=== PATIENT | female | born 2000 | race Caucasian/White ===

== ENCOUNTER 2025-04-19 11:51 | Emergency (ER) | payer SELFPAY ==
--- OUTSIDE RECORDS SUMMARY | 2025-04-08 14:00 | XMS_ITS | Encounter Summary ---
Author Organization Health Address [address] [address] Phone Care Team Providers Care Cage Supervisor Name Role Phone Shar Dubois DO Primary Care Provider [phone] Reason for Referral * Consultation (Routine) - Pending Review Specialty Diagnoses / Procedures Referred By Abril t Referred To Contact Obstetrics and Gynecology Diagnoses Endometriosis of fallopian tube Svetlana Kilgore MD [address] [place] [address] Phone: tel: fax: Ashley Kaur MD [address] [facility] [address] [place] [address] Phone: tel: fax: Referral ID Status Reason Start Date Expiration Date Visits Requested Visits Authorized [id number] Pending Review Specialty Services Required 04/08/2025 04/08/2026 1 1 Reason for Visit * Reason Comments Follow-up 1 month f/u EEG. ref errals Encounter Details Date Type Department Care Team (Late st Contact Info) Description 04/08/2025 1:00 PM CDT Office Visit [facility] [place] [address] [place] [address] Shar Dubois DO [address] [place] [id number] Passive suicidal ideations (Primary Dx); Endometriosis of fallopian tube; Witnessed seizure-like activity (CMS-HCC); Laceration of scalp without foreign body, subsequent encounter Social History Tobacco Use Types Packs/Day Years Used Date Smoking Tobacco: Never Passive Smoke Exposure: Never Smokeless Tobacco: Never Tobacco Cessation:Counseling Given: Not Answered Alcohol Use Standard Drinks/Week Comments Never 0 (1 standard drink = 0.6 oz pur e alcohol) B1300 Health Literacy Answer Date Recor ded How often do you need to hav e someone help you when you read instructions, pamphlets, or other written material from your doctor or pharmacy? Never 03/12/2025 [facility] Utilities Answer Date Recorded In the past 12 months has e [employer], gas, oil, or water [address] threatened to shut off services in your home? No 03/13/2025 Humiliation, Afraid, Rape, and Kick questionnair e Answer Date Recorded Within the last year, have y ou been afraid of your partner or ex-partner? No 03/13/2025 Emotionally Abused Not on file 03/13/2025 Within the last year, have y ou been kicked, hit, slapped, or otherwise physically hurt by your partner or ex-partner? No 03/13/2025 Sexually Abused Not on file 03/13/2025 Social Connection and Isolat ion Panel [NHANES] Answer Date Recorded In a typical week, how many times do you talk on the phone with family, friends, or neighbors? More than three times a week 03/12/2025 How often do you get togethe r with friends or relatives? Once a week 03/12/2025 How often do you attend chur ch or catholic services? More than 4 times per year 03/12/2025 Do you belong to any clubs o r organizations such as faith groups, unions, fraternal or athletic groups, or school groups? Yes 03/12/2025 How often do you attend meet ings of the clubs or organizations you belong to? More than 4 times per year 03/12/2025 Are you , , di vorced, , never , or living with a partner? Never 03/12/2025 AUDIT-C Answer Date Recorded Q1: How often do you have a drink containing alc ohol? Monthly or less 03/13/2025 Q2: How many drinks containi ng alcohol do you have on a typical day when you are drinking? 1 or 2 03/13/2025 Q3: How often do you have si x or more drinks on one occasion? Never 03/13/2025 Overall Financial Resource Strain (CARDIA) Answe r Date Recorded How hard is it for you to pa y for the very basics like food, housing, medical care, and heating? Somewhat hard 03/13/2025 PHQ-2 Answer Date Recorded PHQ-2 Score 6 03/13/2025 [facility] - Occupational Stress Questionnaire Answer Date Recorded Do you feel stress - tense, restless, nervous, or anxious, or unable to sleep at night because your mind is troubled all the time - these days? Very much 03/12/2025 Exercise Vital Sign Answer Date Recorde d On average, how many days pe r week do you engage in moderate to strenuous exercise (like a brisk walk)? 3 days 03/13/2025 On average, how many minutes do you engage in exercise at this level? 60 min 03/13/2025 Hunger Vital Sign Answer Date Recorded Within the past 12 months, y ou worried that your food would run out before you got the money to buy more. Never true 03/13/20 25 Within the past 12 months, t he food you bought just didn't last and you didn't have money to get more. Never true 03/13/2025 PRAPARE - Transportation Answer Date Re corded In the past 12 months, has l ack of transportation kept you from medical appointments or from getting medications? No 02/20 In the past 12 months, has l ack of transportation kept you from meetings, work, or from getting things needed for daily living? No 03/13/2025 PHQ-9 Answer Date Recorded Patient Health Questionnaire-9 Score 22 03/13/2025 Housing Stability Vital Sign Answer Fei e Recorded In the last 12 months, was t here a time when you were not able to pay the mortgage or rent on time? No 03/13/2025 In the past 12 months, how m any times have you moved where you were living? 1 03/13/2025 At any time in the past 12 m [facility], were you homeless or living in a snf (including now)? No 03/13/2025 Comments Unknown Sex and Gender Information Value Date Recorded Sex Assigned at Not on file Legal Sex Female 3:13 PM CDT Gender Identity Not on file Sexual Orientation Not on file documented as of this encounter Last Filed Vital Signs Vital Sign Reading Time Taken Comments Blood Pressure 137/79 04/08/2025 1:06 PM CDT Pulse 78 04/08/2025 1:06 PM CDT Temperature 36.4 C (97.5 F) 04/08/2025 1:06 PM CDT Respiratory Rate 20 04/08/2025 1:06 PM CDT Oxygen Saturation 97% 04/08/2025 1:06 PM CDT Inhaled Oxygen Concentration - - Weight 138.1 kg (304 lb 6.4 oz) 04/08/2025 1:06 PM CDT Height 167.6 cm (5' 6 ) 04/08/2025 1:06 PM CDT Body Mass Index 49.13 04/08/2025 1:06 PM CDT documented in this encounter Progress Notes * Shar Dubois, - 04/08/2025 1:00 PM CDT [facility] [place] - Department of Family Medicine Patient: Abida Montiel Age: 24 y.o. Date: 2000 Subjective: Patient presents today for Follow-up (1 month f/u EEG. referrals) Monogram Technician or Additional Historian Used: Yes, describe: Patient's father was in the room and helpedprovide history. HPI: Patient is here to follow-up on the referrals placed at last visit. She also had two ER visits and one hospital admission for suicidal ideation. Injury to the Head - Went to the ER last night for SI. Patient banged her head against the wall during one of her outbursts. Laceration repaired in ER. Passive suicidal ideation resolved and is stable now. - Patient has a history of multiple concussions since 2019. - Patient could benefit from a concussion work-up before getting into work or other extracurricularactivities with [facility]. Admitted for SI - Has resolved and has an action plan to calm down when thoughts or feelings arise. - Patient sees a therapist regularly. She has a good support system with both of her parents. Referrals: EEG - Done with [facility] at home 03/26 - 03/29 - Was told it would take 1-2 weeks for it to be read - Stressed the importance of having results in hand before neurologist appointment Neurology - Seeing neurologist in [facility] on 04/19/25 [place] - Approved for therapy at [facility], has not been contacted, number provided today. - Patient will call and schedule Marketing Communications Coordinator - Scheduled to see lab technician at the beginning of April Psychiatry - Currently sees psych with [facility] but would like to switch. - referred to Mickie and the phone was provided. Gynecology - Established with Dr. Kaur and is requesting a new referral today per insurance guidelines. Tobacco Hx: Tobacco Use: Low Risk (04/08/2025) Patient History Smoking Tobacco Use: Never Smokeless Tobacco Use: Never Passive Exposure: Never Counseling given: Not Answered Objective No results found for this visit on 04/08/25. Visit Vitals BP 137/79 Pulse 78 Temp 36.4 ??C (97.5 ??F) Resp 20 Ht 1.676 m (5' 6 ) Wt 138.1 kg (304 lb 6.4 oz) LMP 02/23/2025 (Approximate) SpO2 97% BMI 49.13 kg/m?? Smoking Status Never BSA 2.54 m?? Body mass index is 49.13 kg/m??. Physical Exam Constitutional: General: She is not in acute distress. Appearance: Normal appearance. She is obese. HENT: Head: Normocephalic and atraumatic. Nose: Nose normal. Mouth/Throat: Mouth: Mucous membranes are moist. Pharynx: Oropharynx is clear. Eyes: Extraocular Movements: Extraocular movements intact. Conjunctiva/sclera: Conjunctivae normal. Pupils: Pupils are equal, round, and reactive to light. Cardiovascular: Rate and Rhythm: Normal rate and regular rhythm. Pulses: Normal pulses. Heart sounds: Normal heart sounds. No murmur heard. Pulmonary: Effort: Pulmonary effort is normal. Breath sounds: Normal breath sounds. Musculoskeletal: General: Normal range of motion. Cervical back: Normal range of motion and neck supple. Skin: General: Skin is warm and dry. Neurological: General: No focal deficit present. Mental Status: She is alert and oriented to person, place, and time. Cranial Nerves: No cranial nerve deficit. Psychiatric: Mood and Affect: Mood normal. Behavior: Behavior normal. Thought Content: Thought content normal. Judgment: Judgment normal. Comments: Denies SI Current Medication List: Current Outpatient Medications Medication Instructions Abilify 30 mg, Daily haloperidol (HALDOL) 5 mg, Nightly lithium ER (LITHOBID) 300 mg, 3 times daily Epnoalfpg-Ycsjapiyh-Rcannfrqk (Myfembree) 40-1-0.5 MG tablet 1 tablet, Daily sertraline (ZOLOFT) 200 mg, Daily traZODone (DESYREL) 100 mg, Nightly Patient was seen with attending physician at time of service. Assessment and Plan: Diagnoses and all orders for this visit: Passive suicidal ideations - 2 Recent ER visits and one hospital admission - Denies SI or plan today - Sees psych with [facility] and private therapist. - Advised patient to follow action plan for future SI including cold therapy, breathing, grounding. Endometriosis of fallopian tube - Ambulatory referral to Obstetrics / Gynecology; Future - Necessary referral per patient for appointment in 9 months. Witnessed seizure-like activity ([facility]) - Still having episodes of hand and head shaking. Patient is aware and responsive during these episodes. - EEG performed, awaiting read. Neurology appointment on 04/19/25 in [facility]. Laceration of scalp without foreign body, subsequent encounter - Healing well. Stitches in place. Patient can come back to our office or the [facility] ER to have them removed. Orders Placed This Encounter Procedures Ambulatory referral to Obstetrics / Gynecology Shar Dubois DO 04/08/2025 Follow up with our clinic in: in 1 month Future Appointments: Future Appointments Date Time Provider Department Center 04/23/2025 9:40 AM Kyler Calero MD O[facility]PT [facility] 05/20/2025 9:00 AM Shar Dubois DO OUPT [facility] Any components documented by nursing staff or students were independently reviewed and verified by myself during visit today. * Svetlana Kilgore MD - 04/08/2025 1:00 PM CDT I have interviewed and examined this patient and personally reviewed all labs and studies. I discussed the patient's management with the resident(s) and reviewed their note. I agree with the documented findings and plan of care. Svetlana Kilgore MD documented in this encounter Plan of Treatment Upcoming Encounters Date Type Department Care Team (Late st Contact Info) Description 05/20/2025 9:00 AM CDT Office Visit [facility] [place] [address] [place] [id number] Shar Dubois DO [address] [place] [phone] Scheduled Referrals Name Type Priority Associated Diagnoses Order Schedule Ambulatory referral to Obstetrics / Gynecology Outpatient Referral Routine Endometriosis of fallopian tube Expected: 04/08/2025 (Approximate), Expires: 10/09/2025 documented as of this encounter Visit Diagnoses Diagnosis Passive suicidal ideations- Primary Endometriosis of fallopian tube Witnessed seizure-like activity ([facility]) Laceration of scalp without foreign body, subsequent encounter documented in this encounter Additional Health Concerns Assessment Noted Time PHQ-9 Depression Total Score: 22 025 1:00 PM CDT PHQ-2 Depression Total Score: 6 03/13/20 25 10:23 AM CDT documented as of this encounter Care Teams Cage Supervisor Relationship Specialty Start Date End Date Shar Dubois DO [address] [place] [phone] PCP - General Family Medicine 02/14/25 documented as of this encounter
[2025-04-19 11:49] VITALS: BP 107/66; PULSE 92; O2SAT 100
[2025-04-19 11:51] VITALS: BP 133/71; PULSE 77; RESP 16; TEMP 36.4; O2SAT 98; BMI 49.2
[2025-04-19 12:27] LABS: MANUAL DIFF FLAG NO
[2025-04-19 12:30] LABS: Appearance Urine Clear; Glucose Urine UA Negative (Negative); PH 7.0 (5.0-9.0); Specific Gravity - Urine <= 1.005 (1.005-1.025); UMIC TRIGGER UACC YES
[2025-04-19 12:33] LABS: Hematocrit 35.4 % (37.0-47.0); Hemoglobin 11.9 g/dl (12.0-16.0); Imm Gran Abs Auto 0.02 X10*3/uL (0.00-0.03); Imm Gran Pct Auto 0.4 % (0.0-0.4); Lymphocytes Absolute Auto 1.1 X10*3/uL (1.2-4.9); Mean Corpuscular HGB Conc 33.6 g/dl (31.0-35.0); Mean Corpuscular Hemoglobin 27.3 pg (27.0-33.0); Mean Corpuscular Volume 81.2 fL (80.0-98.0); NRBC Abs Auto 0.000 X10*3/uL (0.0-0.012); NRBC Pct Auto 0.0 /100WBC (0.0-0.2); Platelet Count 233 X10*3/uL (160-400); Red Blood Count 4.36 X10*6/uL (4.20-5.50); White Blood Count 4.8 X10*3/uL (4.8-10.8)
--- NOTE | 2025-04-19 12:40 | ED.FEMALEGU ---
HPI - Female Genitourinary General Chief complaint: Urogenital-Female Stated complaint: URINE RETENTION PER EMS,SECTION 21 PER EMS Source: patient, family, EMS and old records reviewed Mode of arrival: EMS Limitations: no limitations History of Present Illness ED Provider: ABIOLA HPI Narrative: 25 yo female with PMH of bipolar, neurogenic bladder has stimulator (stimulator unfortunately is in [place] she was here visiting) due to TBI who occasionally self caths at home she states she got to [facility] yesterday and has not urinated in 16 hours. They stated they couldn't manage it there and did not have female cath. She has pressure and needs to pee but cannot. She states she would normally cath at home in this situation. She has no fevers, n/v. MD elicited complaint: other (urinary retention) Onset (ago): hour(s) (16) Location of symptoms: suprapubic Severity: mild Quality of pain: dull Consistency: constant Vaginal discharge: none Vaginal bleeding: none Exacerbating factors: none Relieving factors: none Associated symptoms: denies other symptoms Treatment prior to arrival: none Related Data Allergies Allergy/AdvReac Type Severity Reaction Status Date / Time buspirone (From BuSpar) Allergy Unknown Verified 04/19/25 11:54 fish derived (fish) Allergy Unknown Verified 04/19/25 11:54 sulfamethoxazole (From Allergy Unknown Verified 04/19/25 11:54 Bactrim) trimethoprim (From Bactrim) Allergy Unknown Verified 04/19/25 11:54 Review of Systems Review of Systems: Constitutional : No Fever, No Chills, No Fatigue ENT/Mouth : No sore throat, No Rhinorrhea Eyes: No Eye Pain, No Swelling, No Redness Cardiovascular : No Chest Pain, No SOB, No Dyspnea on Exertion Respiratory : No Cough, No Sputum Gastrointestinal : No Nausea, No Vomiting, No Diarrhea, No abdominal Pain Genitourinary : No Dysuria, No Urinary Frequency, No Hematuria, pos retention Musculoskeletal : No joint pain, No Myalgias, No Joint Swelling Skin : No Skin Lesions, No rash Neuro : No Weakness, No Numbness, No Dizziness, no Headache All other systems reviewed and are negative PMFSH Past Medical History Attestation statement: The following information was validated with the patient. Source: old records reviewed Medical History (Updated 04/19/25 @ 12:53 by Nia Simms DO) Neurogenic bladder TBI (traumatic brain injury) Bipolar 1 disorder Social History Social History (Updated 04/19/25 @ 12:40 by Nia Simms DO) Patient Tobacco Use Status: Never used Tobacco Smoked in Last 30 Days: No Use of substances other than those prescribed or required for medical reasons: No Advance Directives: No Advance Directives Information Provided: Yes Physical Exam Vital Signs: Vital Signs: Last Vital Signs Temp 97.9 F 04/19/25 14:11 Pulse 70 04/19/25 14:11 Resp 18 04/19/25 14:11 BP 134/68 04/19/25 14:11 Pulse Ox 99 04/19/25 14:11 O2 Del Method Room Air 04/19/25 14:11 BMI result Body Mass Index 49.2 Appearance: Alert. Oriented X3. No acute distress. Eyes: Pupils equal, round and reactive to light. ENT: Pharynx normal open wound on forehead that has internal healing no signs of infection but stitches are old and only on one side of wound they were never approximated please see picture below Neck: Normal inspection. Neck supple. CVS: Normal heart rate and rhythm. Pulses normal. Respiratory: No respiratory distress. Breath sounds normal. Abdomen: Soft and mild suprapubic ttp Skin: Skin warm and dry. Normal skin color. Normal skin turgor. Extremities: No lower extremity edema. No calf ttp Neuro: Oriented X 3. No motor deficit. No sensory deficit. Course Course Course Narrative: given PO ativan waiting for ride home became upset and banged head on the wall - no LOC and no falls, tech right at bedside. Reevaluation(s) Reevaluation #1: IM medications given zyprexa for agitation she responded well Medications Administered Discontinued Medications Generic Name Dose Route Start Last Admin Trade Name Freq PRN Reason Stop Dose Admin Lorazepam 2 mg 04/19/25 15:02 04/19/25 15:13 Lorazepam 1 Mg Tablet PO 04/19/25 15:03 2 mg ONCE ONE Administration Medical Decision Making Medical Decision Making MDM Narrative: 25 yo female with PMH of bipolar, neurogenic bladder has stimulator (stimulator unfortunately is in [place] she was here visiting) due to TBI at this time will obtain labs and UA - straight cath here after bladder scan I did remove her poor sutures - I used glue to tack down steri strips x 2 so I could approximate the wounds Differential Diagnosis Differential Diagnoses: The differential diagnosis associated with the presentation includes known urinary retention Admission/Observation Consideration of admission/observation: Escalation of care including admission/observation considered able to cath no issues full amount removed from bladder scan labs and UA reassuring Lab Data MDM Lab Attestation statement: I reviewed the patient's lab results. 04/19/25 12:23 04/19/25 12:23 Labs: Lab Results 04/19/25 Range/Units 12:23 WBC 4.8 (4.8-10.8) X10*3/uL RBC 4.36 (4.20-5.50) X10*6/uL Hgb 11.9 L (12.0-16.0) g/dl Hct 35.4 L (37.0-47.0) % MCV 81.2 (80.0-98.0) fL MCH 27.3 (27.0-33.0) pg MCHC 33.6 (31.0-35.0) g/dl RDW 14.3 (11.0-16.0) % Plt Count 233 (160-400) X10*3/uL MPV 10.1 (9.4-12.3) fL Immature Gran % (Auto) 0.4 (0.0-0.4) % Neut % (Auto) 66.6 (45-73) % Lymph % (Auto) 22.1 (20-40) % Bucks % (Auto) 8.4 (2-11) % Eos % (Auto) 2.1 (0-4) % Baso % (Auto) 0.4 (0-2) % Lymph # (Auto) 1.1 L (1.2-4.9) X10*3/uL Bucks # (Auto) 0.4 (0.1-1.2) X10*3/uL Eos # (Auto) 0.1 (0.0-0.4) X10*3/uL Baso # (Auto) 0.0 (0.0-0.2) X10*3/uL Abs Immat Gran (auto) 0.02 (0.00-0.03) X10*3/uL Absolute Neuts (auto) 3.2 (2.0-8.3) x10*3/uL Absolute Nucleated RBC 0.000 (0.0-0.012) X10*3/uL Nucleated RBC % (auto) 0.0 (0.0-0.2) /100WBC Sodium 143 (135-145) mmol/L Potassium 4.0 (3.3-5.1) mmol/L Chloride 107 (96-108) mmol/L Carbon Dioxide 28 (22-29) mmol/L Anion Gap 12 (12-20) BUN 9 (9-16) mg/dL Creatinine 0.84 (0.5-1.4) mg/dL Estim Creat Clear Calc 149.3 Estimated GFR > 60 Random Glucose 87 (60-115) mg/dL Calcium 9.2 (8.4-10.2) mg/dL Urine Color Yellow Urine Appearance Clear Urine pH 7.0 (5.0-9.0) Ur Specific [place] <= 1.005 (1.005-1.025) Urine Protein Negative (Neg-Trace) mg/dL Urine Glucose (UA) Negative (Negative) mg/dL Urine Ketones Negative (Negative) mg/dL Urine Blood Negative (Negative) Urine Nitrite Negative (Negative) Ur Leukocyte Esterase Trace H (Negative) Urine RBC 0-2 (0-2) /HPF Urine WBC 0-5 (0-5) /HPF Ur Squamous Epith Cells 0-2 (0-2) /HPF Urine Bacteria Trace (None Seen) Hyaline Casts 0-2 (0-2) /LPF Independent Historian Clinical information obtained from an independent historian. History obtained from or confirmed by: EMS External Record Review External record reviewed: Outpatient record Discharge Plan Discharge Clinical Impression: Dehiscence of wound, Acute on chronic urinary retention Patient Disposition: Home, Self-Care Instructions: Chronic Urinary Retention in Women (ED), Acute Wounds (ED) Additional Instructions: avoid getting steri strips wet return for redness, yellow drainage, fevers they will fall off in 5 to 7 days easily cathed with size 14 fr straight cath removed all urine - bladder scan in 600s no UTI and normal kidney function please continue to monitor for retention and catheterize every 6 to 8 hours as needed. Print Language: Angolan
[2025-04-19 12:41] LABS: Anion Gap 12 (12-20); Blood Urea Nitrogen 9 mg/dL (9-16); Calcium 9.2 mg/dL (8.4-10.2); Carbon Dioxide 28 mmol/L (22-29); Chloride 107 mmol/L (96-108); Creatinine Clr Calc Pharmacy 149.3; Estimated Glomerular Filt Rate > 60; Potassium 4.0 mmol/L (3.3-5.1); Sodium 143 mmol/L (135-145)
--- NOTE | 2025-04-19 13:00 | PC.NURSE ---
phone call with Grace WERNER. Is aware of plan for d/c back to [facility] with 14 Fr straight caths.
--- OUTSIDE RECORDS SUMMARY | 2025-04-19 13:43 | XMS_ITS | Encounter Summary ---
[facility] Organization [facility] Address [address] [place] [address] Phone Care Team Providers Care Gauge And Weigh Machine Operator Name Role Phone Prabhjot Evangelista MD Primary Care Provider [phone] Encounter Details Date Type Department Care Team (Latest Contact Info) Description 09/10/2022 Transcribe Orders [facility] Non-Invasive Cardiology [address] [place] [address] Griselda Segal DO [address] [place] [address] Chest pain, unspecified type (Primary Dx) Social History Tobacco Use Types Packs/Day Years Used Date Smoking Tobacco: Never Assessed Comments Unknown Sex and Gender Information Value Date Recorded Sex Assigned at Not on file Legal Sex Female 10:38 AM 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 Gender Identity Not on file Sexual Orientation Not on file documented as of this encounter Plan of Treatment Not on file documented as of this encounter Visit Diagnoses Diagnosis Chest pain, unspecified type- Primary documented in this encounter Additional Health Concerns Infection Onset Date Last Indicated Resolved Time COVID-19 (suspected) 08/09/2024 08/09/2024 024 8:27 PM 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 documented as of this encounter Care Teams Gauge And Weigh Machine Operator Relationship Specialty Start Date End Date Prabhjot Evangelista MD [address] [place] [address] PCP - General Family Medicine 06/04/24 documented as of this encounter
--- OUTSIDE RECORDS SUMMARY | 2025-04-19 13:43 | XMS_ITS | Clinical Summary ---
Author Organization [facility] Address [address] [place] [address] Phone Care Team Providers Care Culinary Internship Name Role Phone Unavailable Primary Care Provider Unavailabl e Allergies Active Allergy Reactions Criticality Noted Date Comments Buspirone Hives High 12/22/2022 Sulfamethoxazole-Trimethoprim Hives,Swelling High Medications methylPREDNISol one (MEDROL DOSPACK) 4 mg Tablets, Dose Pack Take as instructed 21 Tablet 3 Active ARIPiprazole (ABILIFY) 5 mg tablet Take 5 mg by mouth daily. Active hydrOXYchloroQU INE (PLAQUENIL) 200 mg tablet Take 200 mg by mouth daily. Active traZODone (DESYREL) 50 mg tablet Take 50 mg by mouth daily at bedtime. Active diphenhydrAMINE (BENADRYL) 25 mg tablet Take 25 mg by mouth every 6 hours as needed for Allergies. Active hydrOXYzine HCL (ATARAX) 50 mg tablet Take 50 mg by mouth 3 times daily as needed for Itching. Active predniSONE (DELTASONE) 10 mg tablet Take 10 mg by mouth daily. Active sertraline (ZOLOFT) 100 mg tablet Take 200 mg by mouth daily. Active metFORMIN (GLUCOPHAGE) 500 mg tablet Take 500 mg by mouth 2 times daily with meals. Active Social History Tobacco Use Types Packs/Day Years Used Date Smoking Tobacco: Never Tobacco Cessation:Counseling Given: Not Answered Feeling Safe Answer Date Recorded Are you in a relationship wi th someone who hurts you emotionally and/or physically? No 10/01/2023 Comments Unknown Sex and Gender Information Value Date Recorded Sex Assigned at Not on file Legal Sex Female 10:40 PM CDT Gender Identity Not on file Sexual Orientation Not on file Last Filed Vital Signs Vital Sign Reading Time Taken Comments Blood Pressure 94/73 10/01/2023 6:15 PM DRESSAGE JUDGE Pulse 115 10/01/2023 6:15 PM DRESSAGE JUDGE Temperature 36.9 C (98.4 F) 10/01/2023 4:30 PM DRESSAGE JUDGE Respiratory Rate 17 10/01/2023 6:15 PM DRESSAGE JUDGE Oxygen Saturation 96% 10/01/2023 6:15 PM DRESSAGE JUDGE Inhaled Oxygen Concentration - - Weight 106.6 kg (235 lb) 10/01/2023 4:08 PM DRESSAGE JUDGE Height 165.1 cm (5' 5 ) 10/01/2023 4:08 PM DRESSAGE JUDGE Body Mass Index 39.11 10/01/2023 4:08 PM DRESSAGE JUDGE Plan of Treatment Health Maintenance Due Date Last Done Comments CHLAMYDIA SCREENING (ANNUAL) 11-24 YEARS 2013 HPV VACCINES (1 - 3-dose series) 2017 CERVICAL CANCER SCREENING 2023 HPV/Cotest (21-29) 2023 PAP SMEAR 2023 INFLUENZA VACCINE (#1) 2025 DTAP/TDAP/TD VACCINES (8 - T d or Tdap) 04/06/2032 04/06/2022, 04/24/2013, 05/02/2006, Additional history exists HEPATITIS B VACCINES Completed 05/13/2022, 04/12/2022, 04/17/2003, Additional history exists Insurance [employer] Member Subscriber Plan / Payer (Ef fective 2022-Present) Name:Abida Selby Relation to Subscriber:Child Name:RADHA SELBY Date of :1975 (Home) Address: [address] [place] [address] Payer ID:Not on file Type:HMO Address: [address] ONLY RX F[employer]IAS PLANS (INTERNAL) [facility]
--- OUTSIDE RECORDS SUMMARY | 2025-04-19 13:43 | XMS_ITS | Clinical Summary ---
Author Organization Health Address [address] [address] Phone Care Team Providers Care Comprehensive Advisor Name Role Phone Shar Dubois DO Primary Care Provider [phone] Allergies Active Allergy Reactions Criticality Noted Date Comments Buspirone Hives,Itching,Rash,S w elling High 12/22/2022 Other Reaction(s): hives, swelling Paliperidone Anaphylaxis High 01/30/2025 Sulfamethoxazole-Trimet hoprim Anaphylaxis,Hives,Itc [place],Rash,Swelling High 06/26/2022 Medications Abilify 30 MG tablet Take 30 mg by mouth in the morning. Active haloperidol (Haldol) 5 MG tablet Take 5 mg by mouth at bed time. Active lithium ER (Lithobid) 300 MG 12 hr tablet Take 300 mg by mouth 3 times a day. Do not crush, chew, or split. Active sertraline (Zoloft) 100 MG tablet Take 200 mg by mouth in the morning. Active traZODone (Desyrel) 100 MG tablet Take 100 mg by mouth at bedtime. Active Relugolix-Estrad iol-Norethind (Myfembree) 40-1-0.5 MG tablet Take 1 tablet by mouth in the morning. Active Active Problems Problem Noted Date Diagnosed Date Autism 03/13/2025 OCD (obsessive compulsive disorder) 03/13/2025 History of traumatic brain injury 03/13/2025 At risk for intentional self-harm 03/13/2025 History of suicide attempt 03/13/2025 Borderline personality disorder 03/13/2025 Persistent depressive disorder 03/13/2025 Endometriosis of fallopian tube 03/13/2025 POTS (postural orthostatic tachycardia syndrome) 03/13/2025 PCOS (polycystic ovarian syndrome) 03/13/2025 History of thyroid nodule 03/13/2025 Bipolar affective disorder, depressed in partial remission 03/13/2025 Witnessed seizure-like activity 03/13/2025 Resolved Problems Problem Noted Date Diagnosed Date Resolved Date Bipolar 2 disorder 03/13/2025 Encounters Date Type Department Care Team Description 04/15/2025 Telephone [address] [address] Eleonora Holcomb LPN 04/12/2025 Results Follow-Up [address] [phone] Shar Dubois DO EEG awake or drowsy routine 04/12/2025 Orders Only [facility] [address] [phone] Altagracia Mullins, History of traumatic brain injury; Witnessed seizure-like activity (CMS-HCC) 04/11/2025 Telephone [address] [phone] Shar Dubois DO 04/08/2025 1:00 PM CDT Office Visit [facility] [address] [address] Shar Dubois DO Passive suicidal ideations (Primary Dx); Endometriosis of fallopian tube; Witnessed seizure-like activity (CMS-HCC); Laceration of scalp without foreign body, subsequent encounter 04/08/2025 Travel 04/07/2025 Travel 04/01/2025 Abstract [facility] [address] [address] Shar Dubois DO 03/13/2025 10:00 AM CDT Office Visit [facility] [address] [phone] Shar Dubois, Bipolar affective disorder, depressed in partial remission (CMS-HCC) (Primary Dx); History of traumatic brain injury; Borderline personality disorder (CMS-HCC); Autism; Witnessed seizure-like activity (CMS-HCC); Obesity, Class III, BMI 40-49.9 (morbid obesity) (CMS-HCC); History of thyroid nodule; POTS (postural orthostatic tachycardia syndrome); PCOS (polycystic ovarian syndrome) 03/13/[address] [facility] [address] [phone] Maria Jensen, SHAISTA Encounter for screening examination for other mental health and behavioral disorders (Primary Dx); Encounter for screening involving social determinants of health (SDoH); Positive depression screening; Encounter for social work intervention 03/13/2025 Travel 03/12/2025 Travel from Last 3 Months Social History Tobacco Use Types Packs/Day Years [...] from your doctor or pharmacy? Never 03/12/2025 [facility] Utilities Answer Date Recorded In the past 12 months has [facility] [employer], or water [employer] threatened to shut off services in your [...] often do you attend chur ch or shinto services? More than 4 times per year 03/12/2025 Do you belong to any clubs o r organizations such as advent groups, unions, fraternal or athletic groups, or [...] Answer Date Recorded PHQ-2 Score 6 03/13/2025 [facility] - Occupational Stress Questionnaire Answer Date [...] any time in the past 12 m ont, were you homeless or living in a retirement (including now)? No 03/13/2025 Comments Unknown Sex [...] Mass Index 49.13 04/08/2025 1:06 PM CDT Plan of Treatment Upcoming Encounters Date Type Department Care Team (Late st Contact Info) Description 05/20/2025 9:00 AM CDT Office Visit [facility] [address] [phone] Shar Dubois, DO [address] [place] [address] Health Maintenance Due Date Last Done Comments HIV Screening 2002 Lipid Panel 2002 HPV Vaccines (1 - 3-dose series) 2017 Meningococcal B Vaccine (1 of 2 - Standard) 2018 Hepatitis C Screening 2020 Pap Smear 2023 COVID-19 Vaccine (3 - 2023- season) 2024 05/01/2022, 04/03/2022 Influenza Vaccine (#1) 2025 , 11/23/2023, 04/06/2022 Yearly Depression Screening 03/13/2026 03/13/2025 TSH Level 03/21/2026 03/21/2025, 12/21, 12/22/2024, Additional history exists DTaP/Tdap/Td Vaccines (5 - Td or Tdap) 04/26/2034 04/26/2024, 12/02/2023, 04/06/2022, Additional history exists Zoster Vaccines (1 of 2) 2052 RSV Vaccine: or Age 60+ Years (1 - 1-dose 75+ series) 2077 Pneumococcal Vaccine: Pediatrics (0 to 5 Years) and At-Risk Patients (6 to 64 Years) Aged Out 04/15/2004, 01/09/2003, 2002, Additional history exists No longer eligible based on patient's age to complete this topic Hepatitis A Vaccines Completed 04/12/2005, 04/15/20 04 MMR Vaccines Completed 05/02/2006, 04/17/2003 Varicella Vaccines Completed 05/08/2007, 04/17/2003 Hepatitis B Vaccines Completed 05/13/2022, 04/12/2022, 04/17/2003, Additional history exists Chlamydia Screening Discontinued HIB Vaccines Aged Out No longer eligi ble based on patient's age to complete this topic IPV Vaccines Aged Out No longer eligi ble based on patient's age to complete this topic Meningococcal Vaccine Aged Out No blas ely eligible based on patient's age to complete this topic RSV Vaccine Pediatric Aged Out No blas ely eligible based on patient's age to complete this topic Rotavirus Vaccines Aged Out No longer eligible based on patient's age to complete this topic Procedures Procedure Name Priority Date/Time Associated Diagnosis Comments EEG AWAKE OR DROWSY ROUTINE Routine 03/26/2025 History of traumatic brain injury Witnessed seizure-like activity ([facility]) from Last 3 Months Results * EEG awake or drowsy routine (03/26/2025) Anatomical Region Laterality Modality Other Altagracia Mullins DO NEUROLOGY ORDERABLES Fin al Result from Last 3 Months Insurance [facility] [place] [address] [employer]ALTH [employer] COMPLETE HEALTH [facility] COMPLETE HEALTH Care Teams Comprehensive Advisor Relationship Specialty Start Date End Date Shar Dubois DO [address] [place] [address] PCP - General Family Medicine 02/14/25
--- OUTSIDE RECORDS SUMMARY | 2025-04-19 13:43 | XMS_ITS | Encounter Summary ---
Author Organization [facility] Address [address] [place] [address] Phone Care Team Providers Care Field Crop Harvest Worker Name Role Phone Prabhjot Evangelista MD Primary Care Provider [phone] Reason for Referral * Consultation (Urgent) - Closed Specialty Diagnoses / Procedures Referred By Contac t Referred To Contact Gastroenterology Diagnoses LUQ abdominal pain Prabhjot Evangelista MD [address] [address] Phone: tel: fax: Chel Desai PA [address] [facility] [address] [place] [address] Phone: tel: fax: Referral ID Status Reason Start Date Expiration Date Visits Re quested Visits Authorized [id number] Closed 12/28/2024 12/29/2025 1 1 Encounter Details Date Type Department Care Team (Latest Contact Info) Description 12/28/2024 Transcribe Orders [facility] [address] [place] [address] Prabhjot Evangelista MD [address] [place] [address] LUQ abdominal pain (Primary Dx) Social History Tobacco Use Types Packs/Day Years Used Date Smoking Tobacco: Never Smokeless Tobacco: Never Alcohol Use Standard Drinks/Week Comments Never 0 (1 standard drink = 0.6 oz pur e alcohol) Utilities Answer Date Recorded In the past 12 months has th e electric, gas, oil, or water company threatened to shut off services in your home? No 08/16/2024 Overall Financial Resource Strain (CARDIA) Answe r Date Recorded How hard is it for you to pa y for the very basics like food, housing, medical care, and heating? Not very hard 08/16/2024 Hunger Vital Sign Answer Date Recorded Within the past 12 months, y ou worried that your food would run out before you got the money to buy more. Never true 08/16/20 24 Within the past 12 months, t he food you bought just didn't last and you didn't have money to get more. Never true 08/16/2024 PRAPARE - Transportation Answer Date Re corded In the past 12 months, has l ack of transportation kept you from medical appointments or from getting medications? No 07/23 In the past 12 months, has l ack of transportation kept you from meetings, work, or from getting things needed for daily living? No 08/16/2024 Housing Stability Vital Sign Answer Fei e Recorded In the last 12 months, was t here a time when you were not able to pay the mortgage or rent on time? No 08/16/2024 In the past 12 months, how m any times have you moved where you were living? 0 08/16/2024 At any time in the past 12 m [facility], were you homeless or living in a senior care (including now)? No 08/16/2024 Interpersonal Safety Answer Date Record ed Safe in Home Yes 12/29/2024 Are you in immediate danger? Not on file 05/2025 Is your partner at the health facility now? Not on file 12/29/2024 Do you want to (or have to) go home with your pa rtner? Not on file 12/29/2024 Do you have someplace safe to go? Not on file 12/29/2024 Have there been threats or d irect abuse of you or your children? No 12/29/2024 When did the abuse occur? Not on file 2024 Do you feel you are still at risk? Not on file 12/29/2024 Are you in contact with your ex-partner or do you share children or custody? Not on file 12/29/2024 Are you afraid your life may be in danger? Not o n file 12/29/2024 Has the violence gotten wors e or is it getting scarier? More often? Not on file 12/29/2024 Has anyone ever choked or tried to choke you? No 12/29/2024 Do you feel you are still at risk for choking? N ot on file 12/29/2024 Are you in contact with ex-p artner who choked or attempted to choke you? or do you share children or custody? Not on file 05/2025 Are you afraid your life may be in danger due to choking? Not on file 12/29/2024 Has the choking gotten worse or is it getting scarier? More often? Not on file 12/29/2024 Has your partner used weapons, alcohol or drugs? Not on file 12/29/2024 Has your partner ever held y ou or your children against your will? Not on file 12/29/2024 Does your partner ever watch you closely, follow you or stalk you? Not on file 12/29/2024 Has your partner ever threat ened to kill you, him/herself or your children? Not on file 12/29/2024 When did the choking or choking attempt occur? N ot on file 12/29/2024 Do you feel you are still at risk for choking? 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 PROGRAMMER Gender Identity Not on file Sexual Orientation Not on file documented as of this encounter Plan of Treatment Scheduled Referrals Name Type Priority Associated Diagnoses Order Schedule Ambulatory referral to Gastroenterology Outpatient Referral Routine LUQ abdominal pain 1 Occurrences starting 12/28/2024 until 06/30/2026 documented as of this encounter Visit Diagnoses Diagnosis LUQ abdominal pain- Primary documented in this encounter Care Teams Field Crop Harvest Worker Relationship Specialty Start Date End Date Prabhjot Evangelista MD [address] [place] [address] PCP - General Family Medicine 06/04/24 documented as of this encounter
--- OUTSIDE RECORDS SUMMARY | 2025-04-19 13:43 | XMS_ITS | Clinical Summary ---
Author Organization [facility] Address [address] [place] [address] Care Team Providers Care Bricklayer'S Assistant Name Role Phone Provider, No Pcp Unavailable Unavailable Prabhjot Evangelista Primary Care Provider [phone] Allergies Active Allergy Reactions Criticality Noted Date Comments Sulfamethoxazole-Trimet hoprim 10/06/2024 Sulfamethoxazole-Trimet hoprim Anaphylaxis High 01/22/2025 Buspirone Hives,Swelling High 12/22/2022 Other Reaction(s): hives, swelling Fish Oil Hives 01/30/2025 Fish-Derived Products 10/06/2024 Metformin Anaphylaxis,Hives,Ra s h High 01/25/2023 Paliperidone Anaphylaxis High 01/30/2025 Medications sertraline (Zoloft) 100 MG tablet Take 1 tablet (100 mg) by mouth daily. Active ARIPiprazole (Abilify) 10 MG tablet Take 1 tablet (10 mg) by mouth daily. Active Active Problems No known active problems Encounters Date Type Department Care Team Description 01/30/2025 1:15 AM CDT - 01/30/2025 2:11 AM CDT Emergency [facility] - Emergency Department [address] [place] [address] Prashant Santo MD Allergic reaction (Primary Dx) Discharge Disposition: Home or Self-Care 01/30/2025 Travel 01/28/2025 6:05 PM CDT - 01/28/2025 6:32 PM CDT [place] [facility] [place] [address] [place] [address] Abdullahi Alvarado DO Urticaria (Primary Dx); Pruritus Discharge Disposition: Home or Self-Care 01/28/2025 5:52 AM CDT - 01/28/2025 6:35 AM CDT Emergency [facility] - Emergency Department [address] [place] [address] Jarek Ramirez DO Urticaria (Primary Dx); Pruritus Discharge Disposition: Home or Self-Care 01/28/2025 Travel 01/22/2025 6:59 PM CDT - 01/22/2025 11:31 PM CDT Emergency [facility] - Emergency Department [address] [place] [address] Elian Waller DO Closed head injury, initial encounter (Primary Dx) Discharge Disposition: Psychiatric Hospital or Psychiatric Unit from Last 3 Months Social History Tobacco Use Types Packs/Day Years Used Date Smoking Tobacco: Never Passive Smoke Exposure: Never Smokeless Tobacco: Never Tobacco Cessation:Counseling Given: Not Answered Alcohol Use Standard Drinks/Week Comments Defer 0 (1 standard drink = 0.6 oz pur e alcohol) Comments No Sex and Gender Information Value Date Recorded Sex Assigned at Not on file Legal Sex Female 6:43 PM [employer] Gender Identity Not on file Sexual Orientation Not on file Last Filed Vital Signs Vital Sign Reading Time Taken Comments Blood Pressure 124/74 01/30/2025 2:00 AM CDT Pulse 120 01/30/2025 2:00 AM CDT Temperature 36.9 C (98.4 F) 01/30/2025 1:19 AM CDT Respiratory Rate 18 01/30/2025 2:00 AM CDT Oxygen Saturation 98% 01/30/2025 2:00 AM CDT Inhaled Oxygen Concentration - - Weight 127 kg (280 lb) 01/30/2025 1:19 AM CDT Height 165.1 cm (5' 5 ) 01/30/2025 1:19 AM CDT Body Mass Index 46.59 01/30/2025 1:19 AM CDT Plan of Treatment Health Maintenance Due Date Last Done Comments Pap Smear Age 21+ 2023 Influenza Vaccine (#1) 2025 04/06/2022 Pneumococcal Vaccine: Pediat rics (0-5 Years) and At-Risk Patients (6-64 Years) Aged Out No longer eligible b ased on patient's age to complete this topic Procedures Procedure Name Priority Date/Time Associated Diagnosis Comments EKG 01/23/2025 10:36 AM CDT URINE STAT 01/22/2025 8:19 PM CDT URINALYSIS PRN CULTURE IF INDICATED STAT 01/22/2025 8:19 PM CDT POC ISTAT STAT 01/22/2025 8:13 PM CDT ECG 12-LEAD STAT 01/22/2025 8:[address] HEAD WO CONTRAST STAT 01/22/2025 7 :41 PM CDT from Last 3 Months Results * EKG (01/23/2025 10:36 AM CDT) Anatomical Region Laterality Modality Other us Scan Physician SCANNED ORDERS Final Result * Urinalysis, Culture if Indicated (01/22/2025 8:19 PM CDT) Urine Color Yellow Yellow, Light Yellow, Straw, Pale Yellow, Dark yellow, DKYELLOW, DARK YELLO 01/22/2025 8:25 PM CDT [facility] Urine Clarity Clear Clear 01/22/2025 8:25 PM CDT [facility] Urine pH 7.0 5.0, 5.5, 6.0, 6.5, 7.0, 7.5, 8.0 01/22/2025 8:25 PM CDT [facility] U Specific [place] 1.020 <=1.005 - 1.030 01/22/2025 8:25 PM CDT [facility] U Glucose Negative Negative 01/22/2025 8:25 PM CDT [facility] U Protein Negative Negative 01/22/2025 8:25 PM CDT [facility] U Bilirubin Negative Negative 01/22/2025 8:25 PM CDT [facility] U Leukocyte Esterase Negative Negative 01/22/2025 8:25 PM CDT [facility] U Ketone Negative Negative 01/22/2025 8:25 PM CDT [facility] U Blood Negative Negative 01/22/2025 8:25 PM CDT [facility] U Nitrite Negative Negative 01/22/2025 8:25 PM CDT [facility] Urine Urobilinogen 01/22/2025 8:25 PM CDT [facility] Urine Comment 01/22/2025 8:25 PM CDT [facility] Urine Entire urinary tract proper / Unknown Collection / Unknown 01/22/2025 8:19 PM CDT 01/22/2025 8:22 PM CDT [facility] - 01/22/2025 8:25 PM CDT Consider positive bilirubin results as presumptive positive. Consider confirmation by serum bilirubin if clinically indicated. Elian Waller DO LAB URINE ORDERABLES Fin al Result [facility] [address] [place] [address] * Urine (01/22/2025 8:19 PM CDT) hCG, Qual Urine Negative Negative 01/22/2025 8:27 PM CDT [facility] Urine Entire urinary tract proper / Unknown Collection / Unknown 01/22/2025 8:19 PM CDT 01/22/2025 8:22 PM CDT [facility] - 01/22/2025 8:27 PM CDT hCG is not usually detected in healthy men and healthy non- women. However, hCG levels in will usually exceed 25 mIU/mL two to three days prior to the first missed menstrual period. us Elian J Mueggenborg DO LAB URINE ORDERABLES Fin al Result [facility] [address] [place] [address] * (ABNORMAL) POC iSTAT (01/22/2025 8:13 PM CDT) iSTAT Cartridge CHEM 8 PEGGY 8:17 PM T [facility] Location [facility] 01/22/2025 8:17 PM T [facility] POC Employee ID [id number] 8:17 PM [facility] Specimen Type PEGGY 01/22/2025 8:17 PM [facility] Anion Gap 20(H) 4 - 16 mmol/L 01/22/2025 8:17 PM [facility] Blood Urea Nitrogen 15 7 - 25 mg/dL 01/22/2025 8:17 PM [facility] Calcium, Ionized 1.22 1.00 - 1.30 mmol/L 01/22/2025 8:17 PM [facility] Carbon Dioxide Level 27 18 - 30 mmol/L 01/22/2025 8:17 PM [facility] Chloride 102 98 - 110 mmol/L 01/22/2025 8:17 PM [facility] Creatinine 0.90 0.50 - 1.10 mg/dL 01/22/2025 8:17 PM [facility] Glucose Level 92 65 - 99 mg/dL 01/22/2025 8:17 PM [facility] Potassium 3.7 3.5 - 5.3 mmol/L 01/22/2025 8:17 PM [facility] Sodium 144 135 - 146 mmol/L 01/22/2025 8:17 PM [facility] Hematocrit 35.0 35.0 - 45.0 % 01/22/2025 8:17 PM [facility] Hemoglobin 11.9 11.7 - 15.5 g/dL 01/22/2025 8:17 PM CDT [facility] Blood 01/22/2025 8:13 PM CDT 01/22/2025 8:18 PM CDT Narrative [facility] - 01/22/2025 8:17 PM CDT INR INTERPRETATION: Suggested INR Therapeutic Range for oral anticoagulant therapy (stably anticoagulated patients) Routine therapy: 2.0 - 3.0 Infarction or mechanical prosthetic valves: 2.5 - 3.5 us Elian Waller DO LAB POINT OF CARE TEST O RDERABLES Final Result [facility] [address] [place] [address] * ECG 12 lead (01/22/2025 8:07 PM CDT) Heart Rate ECG 117 bpm TRACEMASTER RR Interval ECG 512 ms TRACEMASTER Atrial Rate ECG 118 ms TRACEMASTER MS Interval 149 ms TRACEMASTER P Duration 108 ms TRACEMASTER P Horizontal Luke ECG 5 deg TRACEMASTER P Front Luke ECG 44 deg TRACEMASTER Q Onset ECG 508 ms TRACEMASTER QRSD Interval 80 ms TRACEMASTER QT Interval 340 ms TRACEMASTER QTcB ECG 475 ms TRACEMASTER QTcF ECG 425 ms TRACEMASTER QRS Horizontal Luke ECG -40 deg TRACEMASTER QRS Luke ECG 5 deg TRACEMASTER I-40 Horizontal Luke ECG 61 deg TRACEMASTER I-40 Front Luke ECG 85 deg TRACEMASTER T-40 Horizontal Luke ECG -77 deg TRACEMASTER T-40 Front Luke ECG -10 deg TRACEMASTER T Horizontal Luke ECG -15 deg TRACEMASTER T Wave Luke [address] Horizontal Luke ECG [address] Front Luke ECG 49 deg TRACEMASTER 01/22/2025 8:07 PM CDT Impressions TRACEMASTER - 01/25/2025 8:39 PM CDT - OTHERWISE NORMAL ECG - Sinus tachycardia Narrative Procedure Note Deonte Resendez MD - 01/25/2025 IMPRESSION: - OTHERWISE NORMAL ECG - Sinus tachycardia us Elian Waller DO ECG ORDERABLES Final Re sult TRACEMASTER * CT head without contrast (01/22/2025 7:41 PM CDT) Anatomical Region Laterality Modality Head and Neck N/A Computed Tomogra phy 01/22/2025 7:42 PM CDT Impressions 01/22/2025 7:46 PM CDT 1. No acute intracranial abnormality. 2. Small frontal midline scalp laceration. I Stevan Marquez MD have reviewed the images and report and concur with these findings. Final Report Electronically Signed By - Stevan Marquez MD Signed On - 01/22/2025 7:46 PM Narrative 01/22/2025 7:46 PM CDT EXAM: CT HEAD WO CONTRAST EXAM DATE: 01/22/2025 COMPARISON: No comparison studies available. HISTORY: closed head injury TECHNIQUE: Axial images are obtained from the skull base to the vertex without intravenous contrast with images viewed on bone and brain windows. Coronal reconstructions are reviewed. Automated exposure control was utilized on this examination as a dose lowering technique. FINDINGS: Brain parenchyma, ventricles, dura, meninges, and extra-axial spaces: No hemorrhage, mass effect, or midline shift. Wyatt-white differentiation is maintained. Brain parenchyma, ventricles, and sulci are within normal limits. Vascular structures: No hyperdense arteries or veins. Calvarium, visualized portions of the mastoids, paranasal sinuses, and orbits: The calvarium is intact. The mastoid air cells are clear. The visualized paranasal sinuses are normal. Orbital structures are unremarkable. There is mild rightward deviation of the nasal septum. A small frontal midline scalp laceration is present. Procedure Note Stevan Marquez MD - 01/22/2025 EXAM: CT HEAD WO CONTRAST EXAM DATE: 01/22/2025 COMPARISON: No comparison studies available. HISTORY: closed head injury TECHNIQUE: Axial images are obtained from the skull base to the vertexwithout intravenous contrast with images viewed on bone and brain windows. Coronal reconstructions arereviewed. Automated exposure control was utilized on this examination as a dose loweringtechnique. FINDINGS: Brain parenchyma, ventricles, dura, meninges, and extra-axial spaces: Nohemorrhage, mass effect, or midline shift. Wyatt-white differentiation is maintained. Brainparenchyma, ventricles, and sulci are within normal limits. Vascular structures: No hyperdense arteries or veins. Calvarium, visualized portions of the mastoids, paranasal sinuses, andorbits: The calvarium is intact. The mastoid air cells are clear. The visualized paranasalsinuses are normal. Orbital structures are unremarkable. There is mild rightward deviation of thenasal septum. A small frontal midline scalp laceration is present. IMPRESSION: 1. No acute intracranial abnormality. 2. Small frontal midline scalp laceration. I Stevan Marquez MD have reviewed the images and report and concurwith these findings. Final Report Electronically Signed By - Stevan Marquez MD Signed On - 01/22/2025 7:46 PM Elian Waller DO IMG CT ORDERABLES Final Result from Last 3 Months Insurance Member Subscriber Plan / Payer (Ef fective for All Dates) Name:Abida Montiel Relation to Subscriber:Child Name:RADHA JACOBS Date of :1900 (Home) Address: [address] [place] [address] Payer ID:[id number] Type:Not on file Address: [address] [facility] Care Teams Bricklayer'S Assistant Relationship Specialty Start Date End Date Prabhjot Evangelista [address] [place] [address] PCP - General 01/30/25 Provider, No Pcp 01/22/25
--- OUTSIDE RECORDS SUMMARY | 2025-04-19 13:43 | XMS_ITS | Encounter Summary ---
Author Organization [facility] Address [address] [address] Phone Care Team Providers Care Coat Check Attendant Name Role Phone Shar Dubois DO Primary Care Provider Encounter Details Date Type Department Care Team (Late st Contact Info) Description 04/11/2025 Telephone [facility] Physicians - [facility] [place] [address] [place] [address] Shar Dubois DO [address] [place] [address] Social History Tobacco Use Types Packs/Day Years Used Date Smoking Tobacco: Never Passive Smoke Exposure: Never Smokeless Tobacco: Never Alcohol Use Standard Drinks/Week Comments Never 0 (1 standard drink = 0.6 oz pur e alcohol) B1300 Health Literacy Answer Date Recor ded How often do you need to hav e someone help you when you read instructions, pamphlets, or other written material from your doctor or pharmacy? Never 03/12/2025 [facility] Utilities Answer Date Recorded In the past 12 months has e electric, gas, oil, or water company [...] 03/12/2025 How often do you attend chur or druze services? More than 4 times per year 03/12/2025 Do you belong to any clubs o r organizations such as buddhist groups, unions, fraternal or athletic groups, or [...] Answer Date Recorded PHQ-2 Score 6 03/13/2025 [facility] - Occupational Stress [...] any time in the past 12 m [facility], were you homeless or living in a senior care (including now)? No 03/13/2025 Comments Unknown Sex and Gender Information Value Date Recorded Sex Assigned at Not on file Legal Sex Female 3:13 PM CDT Gender Identity Not on file Sexual Orientation Not on file documented as of this encounter Miscellaneous Notes * Telephone Encounter - Miriam Belloon - 04/11/2025 10:42 AM CDT Patient is calling to see if her EEG results have been received. I let patient know I do not see them in her chart yet. She states they were faxed sometime this week from [employer]. documented in this encounter Plan of Treatment Upcoming Encounters Date Type Department Care Team (Late st Contact Info) Description 05/20/2025 9:00 AM CDT Office Visit [facility] [place] [address] [place] [id number] Shar Dubois, DO [address] [place] [address] documented as of this encounter Visit Diagnoses Not on filedocumented in this encounter Additional Health Concerns Assessment Noted Time PHQ-9 Depression Total Score: 22 025 1:00 PM CDT PHQ-2 Depression Total Score: 6 03/13/20 25 10:23 AM CDT documented as of this encounter Care Teams Coat Check Attendant Relationship Specialty Start Date End Date Shar Dubois DO [address] [place] [address] PCP - General Family Medicine 02/14/25 documented as of this encounter
--- OUTSIDE RECORDS SUMMARY | 2025-04-19 13:43 | XMS_ITS | Encounter Summary ---
Author Organization [facility] Address [address] [address] Phone Care Team Providers Care Brewing Director Name Role Phone Shar Dubois DO Primary Care Provider Encounter Details Date Type Department Care Team (Late st Contact Info) Description 04/12/2025 Results Follow-Up [facility] Physicians - [facility] Medicine [facility] [place] [address] [place] [address] Shar Dubois DO [address] [place] [address] EEG awake or drowsy routine Social History Tobacco Use Types Packs/Day Years [...] from your doctor or pharmacy? Never 03/12/2025 [facility] Utilities Answer Date Recorded In the [...] often do you attend chur ch or rastafarian services? More than 4 times per year [...] Answer Date Recorded PHQ-2 Score 6 03/13/2025 [facility] Occupat ional Health - Occupational Stress [...] Answer Date Recorded Patient Health Questionnaire-9 Score 03/13/2025 Housing Stability Vital Sign Answer Fei e Recorded In the last 12 months, was t here a time when you were not able to pay the mortgage or rent on time? No 03/13/2025 In the past 12 months, how m any times have you moved where you were living? 1 03/13/2025 At any time in the past 12 m [facility], were you homeless or living in a usp (including now)? No 03/13/2025 Comments Unknown Sex and Gender Information Value Date Recorded Sex Assigned at Not on file Legal Sex Female 3:13 PM CDT Gender Identity Not on file Sexual Orientation Not on file documented as of this encounter Plan of Treatment Upcoming Encounters Date Type Department Care Team (Late st Contact Info) Description 05/20/2025 9:00 AM CDT Office Visit [facility] - [facility] [place] [address] [place] [address] Shar Dubois, DO [address] [place] [phone] documented as of this encounter Visit Diagnoses Not on filedocumented in this encounter Additional Health Concerns Assessment Noted Time PHQ-9 Depression Total Score: 22 025 1:00 PM CDT PHQ-2 Depression Total Score: 6 03/13/20 25 10:23 AM CDT documented as of this encounter Care Teams Brewing Director Relationship Specialty Start Date End Date Shar Dubois DO [address] [place] [address] PCP - General Family Medicine 02/14/25 documented as of this encounter
--- OUTSIDE RECORDS SUMMARY | 2025-04-19 13:43 | XMS_ITS | Clinical Summary ---
Author Organization [facility] Address [address] [place] [address] Phone Care Team Providers Care Tire Duster Name Role Phone Prabhjot Evangelista MD Primary Care Provider [phone] Allergies Active Allergy Reactions Criticality Noted Date Comments Sulfamethoxazole-Trimethopr im Swelling,Rash,Urticaria High 06/26/2022 Buspirone Swelling,Urticaria High 12/22/2022 Fish Derived Other (see comments),Urticaria Medium 06/04/2024 Medications sertraline (ZOLOFT) 100 mg tablet Take 1 tablet (100 mg total) by mouth 1 (one) time each day. Active oxyCODONE-aceta minophen (Percocet) 5-325 mg per tablet Take 1 tablet by mouth every 6 (six) hours if needed for moderate pain (4-6) for up to 20 doses. For acute pain 20 tablet 06/04/2024 Active Active Problems Problem Noted Date Diagnosed Date POTS (postural orthostatic tachycardia syndrome) 08/17/2024 Chest pain, unspecified type 08/16/2024 Social History Tobacco Use Types Packs/Day Years Used Date Smoking Tobacco: Never Smokeless Tobacco: Never Tobacco Cessation:Counseling Given: Not Answered Alcohol Use Standard Drinks/Week Comments Never 0 (1 standard drink = 0.6 oz pur e alcohol) Utilities Answer Date Recorded In the past 12 months has [employer], gas, oil, or water [employer] threatened to shut off services in your [...] any time in the past 12 m [facility], were you homeless or living in a halfway (including now)? 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 Gender Identity Not on file Sexual Orientation Not on file Last Filed Vital Signs Vital Sign Reading Time Taken Comments Blood Pressure 132/84 12/29/2024 8:00 PM CDT Pulse 89 12/29/2024 8:15 PM CDT Temperature 36.1 C (97 F) 12/29/2024 5:39 PM CDT Respiratory Rate 26 12/29/2024 8:15 PM CDT Oxygen Saturation 100% 12/29/2024 8:00 PM CDT Inhaled Oxygen Concentration - - Weight 125 kg (275 lb) 12/29/2024 5:39 PM CDT Height 165.1 cm (5' 5 ) 12/29/2024 5:39 PM CDT Body Mass Index 45.76 12/29/2024 5:39 PM CDT Plan of Treatment Health Maintenance Due Date Last Done Comments Lipid Panel 2002 HPV Vaccines (1 - Risk 3-dose series) 2013 Meningococcal B Vaccine (1 of 2 - Standard) 2018 Hepatitis C Screening 2020 Preventative Visit 01/15/2022 01/15/2021 Pap Smear 2023 COVID-19 Vaccine (3 - 2023- season) 2024 05/01/2022, 04/03/2022 Depression Screening 08/22/2024 SBIRT Screening 08/22/2024 Influenza Vaccine (#1) 2025 , 11/23/2023, 04/06/2022 DTaP,Tdap,and Td Vaccines (5 - Td or Tdap) 04/26/2034 04/26/2024, 12/02/2023, 04/06/2022, Additional history exists RSV Vaccine (1 - 1-dose 75+ series) 2077 Hepatitis A Vaccines Completed 04/12/2005, 04/15/20 MMR Vaccines: At-Risk Patients Discontinued 05/02/2006, 04/17/2003 MMR Vaccines Completed 05/02/2006, 04/17/2003 Varicella Vaccines Completed 05/08/2007, 04/17/2003 Hepatitis B Vaccines Completed 05/13/2022, 04/12/2022, 04/17/2003, Additional history exists HIB Vaccines Aged Out No longer eligi ble based on patient's age to complete this topic IPV Vaccines Aged Out No longer eligi ble based on patient's age to complete this topic Meningococcal Vaccine Aged Out No blas ely eligible based on patient's age to complete this topic Pneumococcal Aged Out No longer eligi ble based on patient's age to complete this topic RSV Antibodies Aged Out No longer avinash gible based on patient's age to complete this topic Medical Devices Implanted Type Area General Assembler Installer Device Identifier Shelf Expiration Date Model / Serial / Lot Barrier Adhesion 4x3in Absorbable Control Beyond Closure Gynecare Interceed Pelvic Sterile - Sn/A - [id number] Implanted:Qty: 1 on 06/04/2024 by Ashley [place]aur [place] [facility] [place] Pelvis J [employer] J [employer] 11/19/2028 [id number] / N/A / [id number] Insurance [facility] [employer] [place] [employer] Advance Directives * Full Code (Latest Code Status on File) Date Activated Date Inactivated Comments 08/16/2024 12:06 AM 08/17/2024 3:32 PM Care Teams Tire Duster Relationship Specialty Start Date End Date Prabhjot Evangelista MD [address] [place] [address] PCP - General Family Medicine 06/04/24
--- OUTSIDE RECORDS SUMMARY | 2025-04-19 13:43 | XMS_ITS | Encounter Summary ---
Author Organization [facility] Address [address] [address] Phone Care Team Providers Care Adoption Services Manager Name Role Phone Shar Dubois DO Primary Care Provider [phone] Encounter Details Date Type Department Care Team (Late st Contact Info) Description 04/15/2025 Telephone [facility] Physicians - Family Medicine Center [place] [address] [place] [address] Eleonora Holcomb LPN [address] [place] [address] Social History Tobacco Use Types Packs/Day Years [...] from your doctor or pharmacy? Never 03/12/2025 [facility] Utilities Answer Date Recorded In the [...] How often do you attend chur or hoahaoism services? More than 4 times per year 03/12/2025 Do you belong to any clubs o r organizations such as orthodoxy groups, unions, fraternal or athletic groups, or [...] money to buy more. Never true 03/13/20 Within the past 12 months, t he [...] any time in the past 12 m [facility], were you homeless or living in a chcf (including now)? No 03/13/2025 Comments Unknown Sex and Gender Information Value Date Recorded Sex Assigned at Not on file Legal Sex Female 3:13 PM CDT Gender Identity Not on file Sexual Orientation Not on file documented as of this encounter Miscellaneous Notes * Telephone Encounter - Eleonora Holcomb LPN - 04/15/2025 2:04 PM CDT Attempted to call patient. No answer, left message. If patient calls back, please let her know thatwe can move her appt on Apr 23 to an earlier date this week, if she would like. Thank you! documented in this encounter Plan of Treatment Upcoming Encounters Date Type Department Care Team (Late st Contact Info) Description 05/20/2025 9:00 AM CDT Office Visit [facility] - [facility] [place] [address] [place] [phone] Shar Dubois, DO [address] [place] [address] documented as of this encounter Visit Diagnoses Not on filedocumented in this encounter Additional Health Concerns Assessment Noted Time PHQ-9 Depression Total Score: 025 1:00 PM CDT PHQ-2 Depression Total Score: 03/13/20 25 10:23 AM CDT documented as of this encounter Care Teams Adoption Services Manager Relationship Specialty Start Date End Date Shar Dubois DO [address] [place] [id number] PCP - General Family Medicine 02/14/25 documented as of this encounter
--- OUTSIDE RECORDS SUMMARY | 2025-04-19 13:43 | XMS_ITS | Clinical Summary ---
Author Organization [facility] Address [address] [place] [address] Care Team Providers Care Power Manager Name Role Phone Unknown, Doctor Primary Care Provider Unavailabl e Allergies Active Allergy Reactions Criticality Noted Date Comments Sulfamethoxazole-Trimet hoprim Hives 06/26/2022 Buspirone Hives,Itching,Rash,S w elling High 12/22/2022 Other Reaction(s): hives, swelling Metformin Anaphylaxis,Hives,De r matitis High 01/25/2023 Paliperidone Anaphylaxis High 01/30/2025 Medications * This document contains information received from the source organization and may not represent a complete record from that organization. clomiPRAMINE (ANAFRANIL) 25 mg capsule Take 25 mg by mouth nightly. 125mg at bedtime Active haloperidoL (HALDOL) 5 mg tablet Take 5 mg by mouth daily. Active hydrOXYzine (VISTARIL) 50 mg capsule Take 50 mg by mouth 3 times a day as needed. 08/08/2024 Active Abilify 30 mg tablet Take 30 mg by mouth daily. Active traZODone (DESYREL) 100 mg tablet Take 200 mg by mouth nightly. Active sertraline (ZOLOFT) 100 mg tablet Take 200 mg by mouth daily. Active lithium 300 mg capsule Take 300 mg by mouth 3 times a day with meals. 03/25/2025 Active Social History Tobacco Use Types Packs/Day Years Used Date Smoking Tobacco: Never Smokeless Tobacco: Never Tobacco Cessation:Counseling Given: Not Answered Alcohol Use Standard Drinks/Week Comments Not Currently 0 (1 standard drink = 0.6 oz pur e alcohol) Comments No Sex and Gender Information Value Date Recorded Sex Assigned at Female 04/12/2025 2:35 PM EDT Legal Sex Female 3:09 PM EDT Gender Identity Female 04/12/2025 2:35 PM EDT Sexual Orientation Straight 04/12/2025 2: 35 PM EDT Last Filed Vital Signs Vital Sign Reading Time Taken Comments Blood Pressure 109/82 04/18/2025 8:41 AM EDT Pulse 73 04/18/2025 8:41 AM EDT Temperature 36.7 C (98.1 F) 04/18/2025 8:41 AM EDT Respiratory Rate 16 04/18/2025 8:41 AM EDT Oxygen Saturation 99% 04/18/2025 8:41 AM EDT Inhaled Oxygen Concentration - - Weight 127 kg (280 lb) 04/12/2025 2:10 PM EDT Height 167.6 cm (5' 6 ) 04/12/2025 2:10 PM EDT Body Mass Index 45.19 04/12/2025 2:10 PM EDT Plan of Treatment Health Maintenance Due Date Last Done Comments HIV Screening 2002 Hepatitis C Screening 2002 Pap Smear 2002 Varicella Vaccines (1 of 2 - 13+ 2-dose series) 2015 HPV Vaccines (1 - 3-dose series) 2017 Chlamydia Screening 2018 Hepatitis B Vaccines (1 of 3 - 19+ 3-dose series) 2021 DTaP,Tdap,and Td Vaccines (1 - Tdap) 2024 COVID-19 Vaccine ( - 2023-2 5 season) 2024 Alcohol/Substance Use Screening 08/22/2024 Depression Screening and Follow-Up 08/22/2024 Social Drivers of Health Kavitha ual Screening 08/22/2024 Influenza Vaccine (#1) 2025 RSV Vaccine (60+ years old a nd patients) (1 - 1-dose 75+ series) 2077 Meningococcal Vaccine Aged Out No blas ely eligible based on patient's age to complete this topic Pneumococcal Vaccine: Pediat lefty (0-5 Years) and At-Risk Patients (6-50 Years) Aged Out No longer eligible b ased on patient's age to complete this topic Procedures * Due to [place] state law, this organization might not be sharing negative HIV tests. Procedure Name Priority Date/Time Associated Diagnosis Comments LITHIUM LEVEL STAT Add-on 04/12/2025 4:13 PM EDT RAPID COVID-19 RNA FOR SURVEILLANCE (ED ONLY) STAT 04/12/2025 4:13 PM EDT HCG, QUALITATIVE, SERUM STAT 04/12/2025 4:13 PM EDT SALICYLATE LEVEL STAT 04/12/2025 4:13 PM EDT ACETAMINOPHEN LEVEL STAT 04/12/2025 4 :13 PM EDT COMPREHENSIVE METABOLIC PANEL STAT 04/12/2025 4:13 PM EDT CBC AUTO DIFFERENTIAL STAT 04/12/2025 4:13 PM EDT from Last 3 Months Results * Due to [place] [employer] law, this organization might not be sharing negative HIV tests. * Rapid COVID-19 RNA for Surveillance (ED Only) (04/12/2025 4:13 PM EDT) [facility] PCR, SARS CoV-2 RNA Not Detected Not Detected CEPHEID GENEXPERT 04/12/2025 5:21 PM EDT [facility] Comment:A Not Detected (Nega tive) test result is indicative of the absence of SARS-CoV-2 RNA at the level of LoD (Limit of Detection). A negative result does not rule out the possibility of COVID-19 and should not be used as the sole basis for treatment or patient management decisions. If COVID-19 is still suspected, based on exposure history together with other clinical findings, re-testing should be considered. Swab (Nares) Non-Blood Collection / Unknown 04/12/2025 4:13 PM EDT 04/12/2025 4:19 PM EDT Narrative [facility] - 04/12/2025 5:21 PM EDT This test was developed, validated and its performance characteristics determined by [facility]. This test has not been cleared or approved by the U.S. Food and Drug Administration (FDA). FDA Policy for Diagnostic Tests for Coronavirus Disease-2019 during the Public Health Emergency issued November 05, 2019, is followed. Katerine Wing MD LAB BODY FLUIDS AND STOOLS ORDERABLES Final Result [facility] [address] [place] [address], [place] * (ABNORMAL) CBC Auto Differential (04/12/2025 4:13 PM EDT) WBC 6.0 3.8 - 10.8 10*3/uL 04/12/2025 4:21 PM EDT [facility] RBC 4.32 3.80 - 5.10 10*6/uL 04/12/2025 4:21 PM EDT [facility] Hemoglobin 11.6(L) 11.7 - 15.5 g/dL 04/12/2025 4:21 PM EDT [facility] Hematocrit 35.4 35.0 - 45.0 % 04/12/2025 4:21 PM EDT [facility] MCV 81.9 80.0 - 100.0 fL 04/12/2025 4:21 PM EDT [facility] MCH 26.9(L) 27.0 - 33.0 pg 04/12/2025 4:21 PM EDT [facility] MCHC 32.8 32.0 - 36.0 g/dL 04/12/2025 4:21 PM EDT [facility] RDW 13.9 11.0 - 15.0 % 04/12/2025 4:21 PM EDT [facility] Platelets 263 140 - 400 10*3/uL 04/12/2025 4:21 PM EDT [facility] MPV 9.8 7.5 - 12.5 fL 04/12/2025 4:21 PM EDT [facility] Neutrophil % 67.7 % 04/12/2025 4:21 PM EDT [facility] Immature Grans % 0.7 0.0 - 0.9 % 04/12/2025 4:21 PM EDT [facility] Lymphocyte % 22.1 % 04/12/2025 4:21 PM EDT [facility] Monocyte % 7.1 % 04/12/2025 4:21 PM EDT [facility] Eosinophil % 1.7 % 04/12/2025 4:21 PM EDT [facility] Basophil % 0.7 % 04/12/2025 4:21 PM EDT [facility] Neutrophil # 4.08 1.50 - 7.80 10*3/uL 04/12/2025 4:21 PM EDT [facility] Immature Grans # 0.04(H) <=0.03 10*3/uL 04/12/2025 4:21 PM EDT [facility] Lymphocyte # 1.30 0.85 - 3.90 10*3/uL 04/12/2025 4:21 PM EDT [facility] Monocyte # 0.40 0.20 - 0.95 10*3/uL 04/12/2025 4:21 PM EDT [facility] Eosinophil # 0.10 0.02 - 0.50 10*3/uL 04/12/2025 4:21 PM EDT [facility] Basophil # <0.03 0.00 - 0.20 10*3/uL 04/12/2025 4:21 PM EDT [facility] nRBC % 0.0 /100 WBCs 04/12/2025 4:21 PM EDT [facility] nRBC # <0.01 <0.01 10*3/uL 04/12/2025 4:21 PM EDT [facility] Blood Structure of peripheral vein / Unknown Venipuncture / Unknown 04/12/2025 4:13 PM EDT 04/12/2025 4:18 PM EDT Katerine Wing MD LAB BLOOD ORDERABLES Final Result Performing Organization Address [facility] Co de Phone Number [facility] [address] [place] [address], [place] * hCG, Qualitative, Serum (04/12/2025 4:13 PM EDT) HCG Qualitative, Serum Negative Negative [place] 04/12/2025 4:43 PM EDT [facility] Comment: hCG may be negative in early . Suggest repeat testing in 2-4 days if clinically indicated. The results of this test should be interpreted with the patient's clinical presentation. Blood Structure of peripheral vein / Unknown Venipuncture / Unknown 04/12/2025 4:13 PM EDT 04/12/2025 4:18 PM EDT Katerine Wing MD LAB BLOOD ORDERABLES Final Result Performing Organization Address City/[facility]/ZIP Co de Phone Number [facility] [address] [place] [address], [place] * Acetaminophen Level (04/12/2025 4:13 PM EDT) Acetaminophen <5.0 <10.0 ug/mL 04/12/2025 4:51 PM EDT [facility] Comment:Expected Range with Therapeutic Dosin-30 ug/mL Blood Structure of peripheral vein / Unknown Venipuncture / Unknown 04/12/2025 4:13 PM EDT 04/12/2025 4:18 PM EDT Katerine Wing MD LAB BLOOD ORDERABLES Final Result Performing Organization Address [facility]/ZIP Co de Phone Number [facility]ITALDovetailGRAND[facility] [address] [place] [address], [place] * Salicylate Level (04/12/2025 4:13 PM EDT) Salicylate <1 <3 mg/dL 04/12/2025 4:51 PM EDT [facility] Comment:Expected Range with Therapeutic Dosin-30 mg/dL Blood Structure of peripheral vein / Unknown Venipuncture / Unknown 04/12/2025 4:13 PM EDT 04/12/2025 4:18 PM EDT Katerine Wing MD LAB BLOOD ORDERABLES Final Result Performing Organization Address [facility] Co de Phone Number [facility]ITALfoodjunky [facility] [address] [place] [address], [place] * (ABNORMAL) [place] Level (04/12/2025 4:13 PM EDT) [place] 0.3(L) 0.6 - 1.2 mmol/L 04/13/2025 9:09 AM EDT [facility]ENTER[facility]ig[facility] Blood Structure of peripheral vein / Unknown Venipuncture / Unknown 04/12/2025 4:13 PM EDT 04/12/2025 4:18 PM EDT Darrell Kothari DO LAB BLOOD ORDERABLES Final R esult Performing Organization Address City/[facility]/ZIP Co de Phone Number [facility] rumr: turn off the lights [facility]ITALfoodjunky aBIZinaBOXHON[facility]HE[facility] [address] [place] [address], [place] * (ABNORMAL) CMP - Comprehensive Metabolic Panel (04/12/2025 4:13 PM EDT) NA 142 135 - 145 mmol/L 04/12/2025 4:50 PM EDT [facility] K 4.0 3.5 - 5.3 mmol/L 04/12/2025 4:50 PM EDT [facility] Cl 106 98 - 107 mmol/L 04/12/2025 4:50 PM EDT [facility] CO2 25 22 - 32 mmol/L 04/12/2025 4:50 PM EDT [facility] Anion Gap 11 5 - 15 04/12/2025 4:50 PM EDT [facility] Glucose 102(H) 65 - 99 mg/dL 04/12/2025 4:50 PM EDT [facility] Creatinine 0.81 0.50 - 1.20 mg/dL 04/12/2025 4:50 PM EDT [facility] Calcium 9.3 8.6 - 10.5 mg/dL 04/12/2025 4:50 PM EDT [facility] Total Protein 6.1 6.0 - 8.0 g/dL 04/12/2025 4:50 PM EDT [facility] Albumin 4.1 3.5 - 5.2 g/dL 04/12/2025 4:50 PM EDT [facility] - [facility] Bilirubin, Total 0.3 0.2 - 1.2 mg/dL 04/12/2025 4:50 PM EDT [facility] Alkaline Phosphatase 77 35 - 129 U/L 04/12/2025 4:50 PM EDT [facility] AST 17 10 - 40 U/L 04/12/2025 4:50 PM EDT [facility] ALT 18 10 - 40 U/L 04/12/2025 4:50 PM EDT [facility] BUN 9 7 - 23 mg/dL 04/12/2025 4:50 PM EDT [facility] - [facility] eGFR >90 >=60 mL/min/1 .73m2 04/12/2025 4:50 PM EDT [facility] - [facility] Comment:The estimated glomer ular filtration rate (eGFR) is calculated using a new formula developed by the NKF-ASN task force to eliminate race-based correction factors. The new formula uses serum/plasma creatinine, age, and gender to determine eGFR. A value below 60mls/min might indicate kidney disease and will be flagged. For additional information, see Kee et al, Am J Kidney Dis. 2021;79(2):268- 288, A Unifying Approach for GFR estimation: Recommendations of the NKF-ASN Task Force on Reassessing the Inclusion of Race in Diagnosing Kidney Disease . Globulin, Total 2.0(L) 2.1 - 4.2 g/dL 04/12/2025 4:50 PM EDT [facility] A/G Ratio 2.1 1.5 - 3.0 04/12/2025 4:50 PM EDT [facility] Blood Structure of peripheral vein / Unknown Venipuncture / Unknown 04/12/2025 4:13 PM EDT 04/12/2025 4:18 PM EDT us Katerine Wing MD LAB BLOOD ORDERABLES Final Result [facility] [address] [place] [address], from Last 3 Months Insurance MEDICAID on file MEDICAID Care Teams Power Manager Relationship Specialty Start Date End Date Unknown, Doctor Unknown Unknown, REED PCP - General 06/27/22
[2025-04-19 14:11] VITALS: BP 134/68; PULSE 70; RESP 18; TEMP 36.6; O2SAT 99
[2025-04-19 16:00] VITALS: BP 109/48; PULSE 79; RESP 18; O2SAT 95
[2025-04-19] MEDS: OLANZapine 10 MG VIAL IM (16:00)
[2025-04-19 16:15] VITALS: BP 104/60; PULSE 74; RESP 20; O2SAT 95
--- NOTE | 2025-04-19 16:46 | PC.NURSE ---
Care of Pt assumed at approx. 1430. Pt awaiting transportation back to [facility] in which is scheduled to 1800. [facility] began head banging while using the bathroom. Pt was returned to stretcher and medicated with PO Ativan--Pt agreeable to take ativan as she reports voices in her head. At approx 1555, Pt attempts to flee from her stretcher requiring several staff member to get her back into bed and attempt to redirect. Verbal encouragement unsuccessful. Dr. Simms alerted of situation and STAT order for IM Zyprexa 10mg given. Pt mediated per OCT at 1600 and medication restraint form and VS initiated. 1:[address] EMS arrives at 1425 to transport Pt back to [facility]. RN to RN report completed and Pt is calm and cooperative with d/c.
== END 2025-04-19 16:25 | disposition home or self-care (01) ==
PROVIDERS: Emergency Provider Emergency Medicine
DX: R33.9 Retention of urine, unspecified (principal); T81.30XA Disruption of wound, unspecified, initial encounter; N31.9 Neuromuscular dysfunction of bladder, unspecified
CPT/HCPCS: 36415; 51701; 51798; 80048; 81001; 85025; 96372; 99285; J2359

== ENCOUNTER 2025-04-21 14:30 | Emergency (ER) | payer SELFPAY ==
--- OUTSIDE RECORDS SUMMARY | 2024-07-28 05:00 | XMS_ITS ---
Author Organization [facility] Address [address] [place] [phone] Care Team Providers Care Clinical Dental Technician Name Role Phone Migration, Provider Unavailable Unavailable REASON FOR VISIT EMR-Erich Encounters Encounter Location Date Provider Diagnosis [facility] [address] [place] [phone] 07/28/2024 Provider Migration Plan Of Treatment No Information Progress Notes * SOLA AmilcarAngelinaOB:2000 (25 yo F)Acc No.[id number]:07/28/2024 Patient: Fausto VALEROelyn :2000 A ge:24 Y S ex:Female Phone: Address:[address] [place] [address], [place], [address] Subjective: * Chief Complaints: * E MR-Erich * Medical History: * Surgical History: * Hospitalization/Major Diagno stic Procedure: * Medications: Objective: * Vitals: * Physical Examination: Assessment: Plan: * Treatment: * Procedure Codes: * * Date:
--- OUTSIDE RECORDS SUMMARY | 2024-07-29 05:00 | XMS_ITS ---
Author Organization [facility] Address [address] [place] [phone] Care Team Providers Care Brancher Name Role Phone Migration, Provider Unavailable Unavailable REASON FOR VISIT EMR-Erich Encounters Encounter Location Date Provider Diagnosis [facility] [address] [place] [phone] 07/29/2024 Provider Migration Plan Of Treatment No Information Progress Notes * SOLA AmilcarAngelinaOB:2000 (25 yo F)Acc No.[id number]:07/29/2024 Patient: Fausto VALEROelyn :2000 A ge:24 Y S ex:Female Phone: Address:[address] [place] [address], [place], [address] Subjective: * Chief Complaints: * E MR-Erich * Medical History: * Surgical History: * Hospitalization/Major Diagno stic Procedure: * Medications: Objective: * Vitals: * Physical Examination: Assessment: Plan: * Treatment: * Procedure Codes: * * Date:
--- OUTSIDE RECORDS SUMMARY | 2024-12-31 11:30 | XMS_ITS ---
Author Organization [facility] Address [address] [place] [address] Care Team Providers Care Lab Pack Chemist Name Role Phone Prabhjot Evangelista MD Primary Care Provider Unavail able PRISCILLA ARREDONDO Unavailable [phone] Allergies Allergen (clinical drug ingredient) Drug/Non Drug Allergy documented on EMR Reaction Allergy Type Onset Date Status Information temporarily unavailable Bactrim Unknown Drug Allergy Active Information temporarily unavailable Fish-derived Products Unknown Drug Allergy Active Information temporarily unavailable Metformin Unknown Drug Allergy Active REASON FOR VISIT [facility] ER FU pelvic pain - endometriosis [...] 17 GM Oral for 30 Days Active Halstad Carbonate 300 MG 1 capsule at be [...] Problem Status W/U Status Risk Notes Problem Information temporarily unavailable Endometriosis of other pelvic peritoneum unsp (N80.399) Active confirmed Vital Signs Blood pressure systolic 110 mm Hg 01/01/20 25 Blood pressure diastolic 82 mm Hg 025 Height 65 in 12/31/2024 Weight 284 lbs 12/31/2024 BMI 47.25 kg/m2 12/31/2024 Height-cm 165.1 cm 12/31/2024 Weight-kg 128.82 kg 12/31/2024 Encounters Encounter Location Date Provider Diagnosis [facility] [address] [place] [address] 12/31/2024 PRISCILLA ARREDONDO Nausea with vomiting , [...] Desai, 09/11/2025 09:15:00 AM, [address] [facility] [address], [place], [address], Progress Notes * Abida SELBY EDOB: 2 (24 yo F)Acc No.[id number]:12/31/2024 Patient: Tab Abida JOLLY Provider: Jessy Arredondo M.D. :2000 A ge:24 Y S ex:Female Date:12/31/2024 Address[place] [facility] [place] Pcp:Prabhjot Evangelista MD Subjective: * Chief Complaints: [...] in the morning. * Medical History: * Biological Inspector History: D enies H/O Gardasil series. D [...] WILBERT and exicision of right hydroslapinx - Vincent 2023 * Hospitalization/Major Diagno stic Procedure: d [...] 3350 17 GM Packet Oral Not- TakingSemaglutide Halstad Carbonate 300 MG Capsule 1 capsule at [...] Release 24 Hour Oral Not-Taking Semaglutide Not-Taking Halstad Carbonate 300 MG Capsule 1 capsule at [...] sympsoms * Billing Information: * Visit Code: 88267 Office Visit, Est Pt., Level 4. * Procedure Codes: * Sign off status: Completed true * Provider: Jessy Arredondo M.D. Date: 0 12/31/2024 Generated for Karani curtis/Rob/eTpapismitting on: 0 04/21/2025 02:40 PM CDT History and Physical Notes * [...]
--- OUTSIDE RECORDS SUMMARY | 2025-01-01 05:38 | XMS_ITS ---
Author Organization [facility] Address [address] [place] [address] Care Team Providers Care Sash Finisher Name Role Phone Tonja COLON, Prabhjot Primary Care Provider Unavail PRISCILLA Wyatt Unavailable [phone] Encounters Encounter Location Date Provider Diagnosis [facility] [address] [place] [address] 01/01/2025 PRISCILLA ARREDONDO Plan Of Treatment Next Appt Details Provider Name:PRISCILLA Desai, 09/11/2025 09:15:00 AM, [address], [place], [address], Progress Notes * Abida SELBY EDOB: 2 (24 yo F)Acc No.[id number]:01/01/2025 Patient: Abida VALERO :2000 A ge:24 Y S ex:Female Address:[address] [place] [address], [place] [address] * true * Date: Generated for Colton acevedo/Rob/eTransmitting on: 0 04/21/2025 02:39 PM CDT
--- OUTSIDE RECORDS SUMMARY | 2025-01-21 07:15 | XMS_ITS ---
Author Organization [facility] Address [address] [place] [address] Care Team Providers Care Retail Store Manager Name Role Phone Tonja COLON, Prabhjot Primary Care Provider Unavail PRISCILLA Wyatt Unavailable [phone] REASON FOR VISIT 3 wk symptoms f/u Encounters Encounter Location Date Provider Diagnosis [facility] [address] [place] [address] 01/21/2025 PRISCILLA ARREDONDO Plan Of Treatment Next Appt Details Provider Name:PRISCILLA Desai, 09/11/2025 09:15:00 AM, [address], [place], [address], Progress Notes * Abida SELBY EDOB: 2 (25 yo F)Acc No.[id number]:01/21/2025 Patient: Fausto VALEROóscar Russ Provider: Jessy Arredondo M.D. :2000 A ge:24 Y S ex:Female Date:01/21/2025 Address:[address] [place] [address], [id number] Pcp:Prabhjot Evangelista MD Subjective: * Chief Complaints: * 1 . 3 wk symptoms f/u. * Medical History: Objective: * Vitals: Assessment: Plan: * Treatment: * Billing Information: * Visit Code: * Procedure Codes: * Electronic signature of ALEXANDRIA ARREDONDO MD on 04/21/2025 at 02:39 PM CDT Sign off status: Pending * Provider: Jessy Arredondo M.D. Date: 01/21/2025 Generated for Colton acevedo/Rob/Sony on: 04/21/2025 02:39 PM CDT
--- OUTSIDE RECORDS SUMMARY | 2025-02-01 07:30 | XMS_ITS ---
Author Organization [facility] Address [address] [place] [address] Care Team Providers Care Primary Care Provider Name Role Phone Tonja COLON, Prabhjot Primary Care Provider Unavail PRISCILLA Wyatt Unavailable [phone] REASON FOR VISIT has appt on 01/21 Encounters Encounter Location Date Provider Diagnosis [facility] [address] [place] [address] 02/01/2025 PRISCILLA ARREDONDO Plan Of Treatment Next Appt Details Provider Name:PRISCILLA Desai, 09/11/2025 09:15:00 AM, [address], [place], [address], Progress Notes * Abida SELBY EDOB: 2 (25 yo F)Acc No.[id number]:02/01/2025 Patient: Abida VALERO Provider: Jessy Arredondo M.D. :2000 A ge:24 Y S ex:Female Date:02/01/2025 [id number] Pcp:Prabhjot Evangelista MD Subjective: * Chief Complaints: * 1 . Has appt on 01/21. * Medical History: Objective: * Vitals: Assessment: Plan: * Treatment: * Billing Information: * Visit Code: * Procedure Codes: * Electronic signature of ALEXANDRIA ARREDONDO MD on 04/21/2025 at 02:40 PM CDT Sign off status: Pending * Provider: Jessy Arredondo M.D. Date: 0 02/01/2025 Generated for Colton acevedo/Rob/Sony on: 0 04/21/2025 02:40 PM CDT
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
--- OUTSIDE RECORDS SUMMARY | 2025-03-13 10:30 | XMS_ITS ---
Author Organization The [employer] [facility] Address [address] [place] [address] Care Team Providers Care Orthotist/Prosthetist Name Role Phone Prabhjot Evangelista MD Primary Care Provider Unavail able PRISCILLA ARREDONDO Unavailable [phone] Allergies Allergen (clinical drug ingredient) Drug/Non Drug [...] aking Vistaril Not-Taking Metoprolol-HCTZ ER N ot-Taking Aripeka Carbonate 300 MG 1 capsule at be [...] Diagnosis [facility] [address] 03/13/2025 PRISCILLA ARREDONDO Endometriosis of Pelvic Pertineum unsp N80.30 and Pelvic and perineal pain R10.2 Assessments Encounter Date Diagnosis (ICD Code) Assessment Notes Treatment Notes Treatment Clinical Notes Section Notes 03/13/2025 Endometriosis of Pelvic Pertineum unsp (ICD-10 - N80.30) Improvin well with myfederek, reviewed r/b improvement and positive impact on mood. She is doing well, no current complaints, continue close mood FU and monitoring, reviewed shor and terminal clerk risks, reviewed this medication is not a proven contraceptive, NSA. 03/13/2025 Pelvic and perineal pain (ICD-10 - R10.2) Improvin well with myfembree, reviewed r/b improvement and positive impact on mood. She is doing well, no current complaints, continue close mood FU and monitoring, reviewed shor and penitentiary risks, reviewed this medication is not a proven contraceptive, NSA. Plan Of Treatment Next Appt Details Follow Up: 6 mo follow up sx , Reason: Provider Name:PRISCILLA SUKHJINDERLAISIA Desai, 09/11/2025 09:15:00 AM, [address] [facility], [facility] [address], [place], [address], Progress Notes * EWELINAJOELloyd Abida EDOB: 2 (25 yo F)Acc No.[id number]:03/13/2025 Patient: Abida VALERO Provider: Jessy Arredondo M.D. :2000 A ge:24 Y S ex:Female Date:03/13/2025 Address:[address] [facility] Pcp:Prabhjot Evangelista MD Subjective: * Chief Complaints: * 1 . 3 week follow up. * HPI: H PI: Pt states things [...] great, no LIZETTE now. * Medical History: T BI, Depression, Anxiety, PCOS, Atypical anorexia, POTS, Neurogenic bladder. 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 D [...] * Surgical History: a ppendectomy (possibly encapsulated) 2006, tonsillectomy 2012, wisdom teeth extraction 2019, bladder Interstim - Florian 2023, rorbotic WILBERT and exicision of right hydroslapinx - Vincent 2023. * Hospitalization/Major Diagno stic Procedure: d enies . * Family History: F ather: alive, diagnosed with Mental Illness. M other: alive, diagnosed with Mental Illness. B rother: alive, diagnosed with Mental Illness. grandfather - colon cancer. * Medications: T aking Haldol , Taking Myfembree 40-1-0.5 MG Tablet 1 tablet Orally Once a day , Taking Abilify 10 MG Tablet 1 tablet Orally Once a day , Taking hydrOXYzine HCl 50 MG Tablet Oral , Taking Aripeka Carbonate 300 MG Capsule 1 capsule at bedtime Orally Once a day , Taking Sertraline HCl 100 MG Tablet Oral , Taking traZODone HCl 50 MG Tablet Oral , Not-Taking Drospirenone-Ethinyl Estradiol 3-0.02 MG Tablet 1 tablet Orally Once a day , Not-Taking Celecoxib 100 MG Capsule Oral , Not-Taking Cyclobenzaprine HCl 5 MG Tablet Oral , Not-Taking Dicyclomine HCl 20 MG Tablet Oral , Not-Taking Pantoprazole Sodium 40 MG Tablet Delayed Release Oral , Not-Taking Senna 8.6 MG Tablet Oral , Not-Taking Polyethylene Glycol 3350 17 GM Packet Oral , Not-Taking Nortriptyline HCl 25 MG Capsule 1 capsule at bedtime Orally Once a day , Not-Taking Semaglutide , Not-Taking hydrOXYzine HCl 10 MG Tablet 1 tablet as needed Orally Once a day , Not-Taking guanFACINE HCl 1 MG Tablet 1 tablet at bedtime Orally Once a day , Not-Taking diazePAM 10 MG Tablet 1 tablet as needed Orally Once a day , Not-Taking clomiPRAMINE HCl 25 MG Capsule 1 capsule Orally Twice a day , Not- Taking ChlorproMAZINE , Not-Taking Benztropine Mesylate 1 MG Tablet 1 tablet Orally Once a day , Not-Taking Metoprolol-HCTZ ER , Not-Taking Vistaril , Not-Taking Nextstellis 3-14.2 MG Tablet 1 tablet Orally Once a day , Not-Taking Prazosin HCl 1 MG Capsule 1 capsule at bedtime Orally Once a day , Not-Taking SEROquel 25 MG Tablet 1 tablet at bedtime Orally Once a day , Not-Taking Keflex , Not-Taking Naltrexone , Not- Taking lamoTRIgine 25 MG Tablet Oral , Not-Taking QUEtiapine Fumarate ER 150 MG Tablet Extended Release 24 Hour Oral , Medication List reviewed and reconciled with the patient * Allergies: B actrim: Allergy - Criticality High, Metformin: Allergy - Criticality High, Fish-derived Products: Allergy - Criticality High. Objective: * Vitals: G ravida: 0, Para: [...] mood FU and monitoring, reviewed shor and penitentiary risks, reviewed this medication is not a proven contraceptive, NSA. Plan: * Treatment: * Follow Up: 6 mo follow up sx * Billing Information: * Visit Code: 35969 Office Visit, Est Pt., Level 3. * Procedure Codes: * Electronic signature of ALEXANDRIA ARREDONDO MD on 04/21/2025 at 02:40 PM CDT Sign off status: Pending * Provider: Jessy Arredondo M.D. Date: 03/13/2025 Generated for Karani curtis/Rob/eTransmitting on: 0 04/21/2025 02:40 PM CDT History [...]
--- OUTSIDE RECORDS SUMMARY | 2025-03-18 05:00 | XMS_ITS ---
Author Organization [facility] Address [address] [place] [address] Care Team Providers Care Emt Name Role Phone Prabhjot Evangelista Primary Care Provider [phone] REASON FOR VISIT Lab draw results Encounters Encounter Location Date Provider Diagnosis [facility] [address] [place] [address] 03/18/2025 Prabhjot Evangelista Plan Of Treatment No Information Progress Notes * Abida SELBY EDOB: [birth year] (25 yo F)Acc No.[id number]:03/18/2025 Progress Note - Follow-Up Patient: Abida VALERO Appointment Provider: Ruth Ann Evangelisat MD :2000 A ge:24 Y S ex:Female Date:03/18/2025 External Visit ID:[id number] Address:[address] , [place] [address] Subjective: * Chief Complaints: * 1 . Lab draw results. * Medical History: Objective: * Vitals: * Physical Examination: Assessment: Plan: * Treatment: * * Electronic signature of Prabhjot Evangelista MD on 04/21/2025 at 02:40 PM CDT Sign off status: Pending * Appointment Provider: Ruth Ann Evangelista MD Date: 03/18/2025 Generated for Colton acevedo/Rob/eTpapismitting on: 04/21/2025 02:40 PM CDT
--- OUTSIDE RECORDS SUMMARY | 2025-03-26 06:30 | XMS_ITS ---
Author Organization [facility] Address [address] [place] [address] Care Team Providers Care Roll Filler Name Role Phone Prabhjot Evangelista Primary Care Provider REASON FOR VISIT Lab results Encounters Encounter Location Date Provider Diagnosis [facility] [address] [place] [address] 03/26/2025 Prabhjot Evangelista Plan Of Treatment No Information Progress Notes * Abida SELBY EDOB: 2 (25 yo F)Acc No.[id number]:03/26/2025 Progress Note - Follow-Up Patient: Abida VALERO Appointment Provider: Ruth Ann Evangelista MD :2000 A ge:24 Y S ex:Female Date:03/26/2025 External Visit ID:[id number] Address:[address] , [place] [address] Subjective: * Chief Complaints: * 1 . Lab results. * Medical History: Objective: * Vitals: * Physical Examination: Assessment: Plan: * Treatment: * * Electronic signature of Prabhjot Evangelista MD on 04/21/2025 at 02:39 PM CDT Sign off status: Pending * Appointment Provider: Ruth Ann Evangelista MD Date: 03/26/2025 Generated for Printi ng/Famakayla/eTransmitting on: 04/21/2025 02:39 PM CDT
--- NOTE | ~2025-04-21 | CT_ITS ---
CLINICAL HISTORY: Head injury CT cervical spine without contrast Comparison: None provided Findings: Vertebral alignment is within normal limits. Multilevel disc space narrowing and endplate osteophyte formation, as well as facet hypertrophy. No acute fractures or dislocations. Visualized intracranial contents are unremarkable. No cervical fluid collections or masses. No consolidation or effusion at the lung apices. IMPRESSION: No acute findings. This document has been electronically signed by: Jasiel Coreas MD on 04/21/2025 15:53:24
--- NOTE | ~2025-04-21 | CT_ITS ---
CLINICAL HISTORY: Angry and striking her head in the wall. CT head without contrast Comparison: None provided Findings: No intra-axial mass, midline shift, hydrocephalus, or acute hemorrhage. No significant atrophy-like change or white matter disease. There is no sinus or mastoid fluid. The orbits are within normal limits. There is no acute fracture. IMPRESSION: 1. No acute intracranial findings. This document has been electronically signed by: Jasiel Coreas MD on 04/21/2025 16:03:06
--- NOTE | 2025-04-21 14:46 | ED.PSYCH ---
HPI - Psych General Chief Complaint: Behavioral Concerns Stated Complaint: HITTING HEAD ON WALL Time Seen by Provider: 04/21/25 14:39 Source: patient, EMS and old records reviewed Mode of arrival: EMS Limitations: no limitations History of Present Illness ED Provider: DR. Bach HPI Narrative: 25-year-old female PMHx bipolar, neurogenic bladder with bladder stimulator, TBI, occasionally self catheterize for urine, currently patient is a psych inpatient at [facility] patient was sent under section 21 for evaluation of head injury patient started to hear voices that aggravated her patient started to Bang her head in the wall several times, causing an old small laceration in the forehead to open, reportedly patient needed IM sedation medication, on arrival patient now is calm, engaging in giving the history, stated that voices was stone her to hurt herself and she was trying to get the voices out of the red and was banging her head in the wall, patient now is calm and redirectable complaining of no neck pain, no weakness, no numbness, no CP, no SOB, no abdominal pain. Related Data Allergies Allergy/AdvReac Type Severity Reaction Status Date / Time buspirone (From BuSpar) Allergy Unknown Verified 04/21/25 14:50 fish derived (fish) Allergy Unknown Verified 04/21/25 14:50 sulfamethoxazole (From Allergy Unknown Verified 04/21/25 14:50 Bactrim) trimethoprim (From Bactrim) Allergy Unknown Verified 04/21/25 14:50 Review of Systems Review of Systems: All other systems are reviewed and are negative Constitutional: Reports as per HPI and Reports no additional constitutional complaints Eyes: Reports as per HPI and Reports no additional eye complaints Reports system reviewed and no additional complaints, except as documented Cardiovascular: Reports as per HPI and Reports no additional cardiovascular complaints Respiratory: Reports as per HPI and Reports no additional respiratory complaints Gastrointestinal: Reports as per HPI and Reports no additional gastrointestinal complaints Genitourinary: Reports no additional female genitourinary complaints Musculoskeletal: Reports no additional musculoskeletal complaints Skin/Breast: Reports system reviewed and no additional complaints, except as docu Psychiatric: Reports no additional psychiatric complaints Endocrine: Reports no additional endocrine complaints Hematologic/Lymphatic: Reports no additional hematologic/lymphatic complaints Allergic/Immunologic: Reports no additional allergic/immunologic complaints Reports system reviewed and no additional complaints, except as documented and Reports Abnormal speech present [facility] Past Medical History Medical History Neurogenic bladder TBI (traumatic brain injury) Bipolar 1 disorder Social History Social History Patient Tobacco Use Status: Never used Tobacco Smoked in Last 30 Days: No Use of substances other than those prescribed or required for medical reasons: No Advance Directives: No Advance Directives Information Provided: No Physical Exam Vital Signs: Vital Signs: Last Vital Signs Temp 98.2 F 04/21/25 14:47 Pulse 78 04/21/25 14:47 Resp 18 04/21/25 14:47 BP 113/58 L 04/21/25 14:47 Pulse Ox 99 04/21/25 14:47 O2 Del Method Room Air 04/21/25 14:47 BMI result Body Mass Index 45.2 Vital signs have been reviewed and appear to be correct. Blood pressure elevated. Heart rate normal. Respiratory rate normal. Temperature normal. Oxygen saturation normal. Appearance: Alert. Oriented X3. No acute distress. Head: Normal external exam. Normocephalic. A small vertical old scar on the forehead with no active bleeding surrounded by dry blood, No Reyes signs noted. No raccoon eyes noted Eyes: PERRLA. EOMI. Conjunctiva and sclera normal. Eyelids normal. ENT: TM's Normal. Pharynx normal. Uvula midline. Moist mucous membranes. No trismus noted. No drooling noted. No muffled voice noted. Neck: Normal inspection. Neck supple. FROM. No adenopathy. Thyroid Normal. No meningeal signs. No neck mass noted. CVS: Normal heart rate and rhythm. Heart sound normal. No murmurs noted. Pulses normal throughout. Respiratory: No respiratory distress. Painless inspiration. Breath sounds normal. No wheezes/rales/rhonchi noted. Chest nontender. No accessory muscle usage noted or decreased air movement noted. Abdomen: Soft and nontender. Bowel sounds normal in all 4 quadrants. No distention noted. No organomegaly noted. No visible injury noted. Back: No CVA tenderness. Full range of motion noted. Skin: Skin warm and dry. Normal skin color. Normal skin turgor. No rashes/lesions/lacerations noted. Extremities: No lower extremity edema. Extremities exhibit normal range of motion. Extremities nontender. Neuro: Oriented X 3. Cranial nerve exam: II-XII are grossly intact No motor deficit. No sensory deficit. Reflexes normal. Patient Orientation: Person, Place, Time and Situation, okay hygiene and grooming. Fair eye contact, attentive, no tics or tremors. Level of Consciousness: Awake, Appropriate and Alert Patient Behavior: Appropriate, Guarded, Cooperative and Anxious Mood Description: Constricted, Blunted and Apprehensive Affect Description: Constricted, Blunted and Apprehensive Patient Cognition Impaired: No Ability to Follow Directions: Excellent Speech Pattern: Clear, Appropriate and Spontaneous Speech, nonpressured, spontaneous with regular rate and rhythm, normal volume and prosody. No dysarthria. Memory Description: Intact, Immediate Intact and Short Term Intact Hallucinations: Presence of auditory hallucination. Delusions: Not Present Thought Process: Intact Thought Content: positive for Intact, positive for Logical, denies Suicidal Ideation and denies Homicidal Ideation. Depressive Symptoms: Not present. Judgement and Insight: Limited but adequate. Course Reevaluation(s) Reevaluation #1: 25-year-old female under section 21 from [facility] for evaluation after aggressive behavior and hurting herself, GCS of 15 patient at her baseline with normal neuro exam and negative head/C-spine CT. Time: 16:04 Medical Decision Making Differential Diagnosis Differential Diagnoses: The differential diagnosis associated with the presentation includes (Intracranial bleed, cervical spine injury, chest injury, back injury, extremities injury, abdominal injury, medical clearance.) Admission/Observation Consideration of admission/observation: Escalation of care including admission/observation considered Independent Interpretation I performed an independent interpretation of an: CT Scan (Head/C-spine: No acute pathology.) Radiology Impression Discussion of test interpretation with radiology: I have reviewed the radiologist's reading. Discharge Plan Discharge Clinical Impression: Aggressive behavior, Closed head injury Patient Disposition: Xfer Psychiatric Hosp Transfer Details: Going back to [facility]. Instructions: Head Injury (ED) Print Language: Indonesian
[2025-04-21 14:47] VITALS: BP 113/58; BP 142/80; PULSE 78; PULSE 90; RESP 18; TEMP 36.8; O2SAT 99; BMI 45.2
--- NOTE | 2025-04-21 15:32 | PC.NURSE ---
Addendum entered by Dilia Ricci RN 04/21/25 15:33: Patient is a 25-year-old female PMHx bipolar, neurogenic bladder with bladder stimulator, TBI, occasionally self catheterize for urine, currently patient is a psych inpatient at [facility] patient was sent under section 21 for evaluation of head injury patient started to hear voices that aggravated her patient started to Bang her head in the wall several times, causing an old small laceration in the forehead to open, reportedly patient needed IM sedation medication, on arrival patient now is calm, engaging in giving the history, stated that voices told her to hurt herself and she was trying to get the voices out of the red and was banging her head in the wall, patient now is calm and redirectable Original Note: Medical History Neurogenic bladder TBI (traumatic brain injury) Bipolar 1 disorder
--- OUTSIDE RECORDS SUMMARY | 2025-04-21 15:38 | XMS_ITS | Encounter Summary ---
Author Organization [facility] Address [address] [place] [address] Phone Care Team Providers Care Cloth Pattern Maker Name Role Phone Prabhjot Evangelista MD Primary Care Provider Reason for Referral * Consultation (Urgent) - Closed Specialty Diagnoses / Procedures Referred By Contac t Referred To Contact Gastroenterology Diagnoses LUQ abdominal pain Prabhjot Evangelista MD [address] [address] Phone: tel: fax: Chel Desai PA [address] [facility] [address] [place] [address] Phone: tel: fax: Referral ID Status Reason Start Date Expiration Date Visits Re quested Visits Authorized [id number] Closed 12/28/2024 12/29/2025 1 1 Encounter Details Date Type Department Care Team (Latest Contact Info) Description 12/28/2024 Transcribe Orders [facility] [address] [place] [address] Prabhjot Evangelista MD [address] [place] [address] LUQ abdominal pain (Primary Dx) [...] any time in the past 12 m [facility], were you homeless or living in a retirement (including now)? 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 Gender Identity Not on file Sexual Orientation Not on file documented as of this encounter Plan of Treatment Scheduled Referrals Name Type Priority Associated Diagnoses Order Schedule Ambulatory referral to Gastroenterology Outpatient Referral Routine LUQ abdominal pain 1 Occurrences starting 12/28/2024 until 06/30/2026 documented as of this encounter Visit Diagnoses Diagnosis LUQ abdominal pain- Primary documented in this encounter Care Teams Cloth Pattern Maker Relationship Specialty Start Date End Date Prabhjot Evangelista MD [address] [place] [address] PCP - General Family Medicine 06/04/24 documented as of this encounter
--- OUTSIDE RECORDS SUMMARY | 2025-04-21 15:39 | XMS_ITS | Encounter Summary ---
Author Organization [facility] Address [address] [place] [address] Phone Care Team Providers Care Linen Clerk Name Role Phone Prabhjot Evangelista MD Primary Care Provider [phone] Encounter Details Date Type Department Care Team (Latest Contact Info) Description 09/10/[address] 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 Gender Identity Not on file Sexual Orientation Not on file documented as of this encounter Plan of Treatment Not on file documented as of this encounter Visit Diagnoses Diagnosis Chest pain, unspecified type- Primary documented in this encounter Additional Health Concerns Infection Onset Date Last Indicated Resolved Time COVID-19 (suspected) 08/09/2024 08/09/2024 024 8:27 PM CAKE STRIPPER documented as of this encounter Care Teams Linen Clerk Relationship Specialty Start Date End Date Prabhjot Evangelista MD [address] [place] [address] PCP - General Family Medicine 06/04/24 documented as of this encounter
--- OUTSIDE RECORDS SUMMARY | 2025-04-21 15:39 | XMS_ITS | Patient Health Record ---
Author Organization [facility] [employer] [facility] Address [address] [place] [address] Care Team Providers Care Chemistry Instructor Name Role Phone Prabhjot Evangelista MD Primary Care Provider Unavail able PRISCILLA ARREDONDO Unavailable [phone] Allergies Allergen (clinical drug ingredient) Drug/Non Drug Allergy documented on EMR Reaction Allergy Type Onset Date Status Information temporarily unavailable Bactrim Unknown Drug Allergy Active Information temporarily unavailable Fish-derived Products Unknown Drug Allergy Active Information temporarily unavailable Metformin Unknown Drug Allergy Active Reason For Referral No Information Medications Medication SIG (Take, Route, Frequency, Duration) Notes Start Date End Date Status Sertraline HCl 100 MG Oral for 14 Days Active Celecoxib 100 MG Oral for 15 Days Not-Taking Prazosin HCl 1 MG 1 capsule at bedtime Orally Once a day Not-Taking Nextstellis 3-14.2 MG 1 tablet Orally On ce a day for 84 days 06/26/2024 Not-Taking Dicyclomine HCl 20 MG Oral for 10 Days Not-Taking Keflex Not-Taking Cyclobenzaprine HCl 5 MG Oral for 15 Days Not-Taking SEROquel 25 MG 1 tablet at bedtime Orally Once a day Not-Taking Senna 8.6 MG Oral for 60 Days Not-Taking traZODone HCl 50 MG Oral for 14 Days Active Pantoprazole Sodium 40 MG Oral for 30 Days Not-Taking Naltrexone Not-Takin g Myfembree 40-1-0.5 MG 1 tablet Orally On ce a day for 30 days 12/31/2024 Active QUEtiapine Fumarate ER 150 MG Oral for 14 Days Not-Taking Polyethylene Glycol 3350 17 GM Oral for 30 Days Not-Taking lamoTRIgine 25 MG Oral for 14 Days Not-Taking Abilify 10 MG 1 tablet Orally Once a day Active Nortriptyline HCl 25 MG 1 capsule at bed time Orally Once a day for 30 days 12/31/2024 Not-Taking hydrOXYzine HCl 50 MG Oral for 30 Days Active Haldol Active Osprey Carbonate 300 MG 1 capsule at be dtime Orally Once a day Active Drospirenone-Ethinyl Estradiol 3-0.02 MG 1 tablet Orally Once a day for 90 days 11/30/2024 Not-Taking Semaglutide Not-Taki ng guanFACINE HCl 1 MG 1 tablet at bedtime Orally Once a day Not-Taking hydrOXYzine HCl 10 MG 1 tablet as needed Orally Once a day Not-Taking clomiPRAMINE HCl 25 MG 1 capsule Orally Twice a day Not-Taking diazePAM 10 MG 1 tablet as needed Orally Once a day Not-Taking Benztropine Mesylate 1 MG 1 tablet Orall y Once a day Not-Taking ChlorproMAZINE Not-T aking Vistaril Not-Taking Metoprolol-HCTZ ER N ot-Taking Problems Problem Type SNOMED Code ICD Code Onset Dates Problem Status W/U Status Risk Notes Problem Information temporarily unavailable Polycystic ovarian syndrome (E28.2) Active confirmed Problem Information temporarily unavailable Chronic salpingitis (N70.11) Active confirmed Problem Information temporarily unavailable Abnormal uterine and vaginal bleeding, unspecified (N93.9) Active confirmed Problem Information temporarily unavailable Endometriosis of other pelvic peritoneum unsp (N80.399) Active confirmed Vital Signs Height-cm 165.1 cm 03/13/2025 303 Blood pressure diastolic 82 mm Hg 03/13/2025 303 Weight-kg 137.44 kg 03/13/2025 303 Height 65 in 03/13/2025 303 Blood pressure systolic 120 mm Hg 03/13/2025 303 Weight 303 lbs 03/13/2025 303 BMI 50.42 kg/m2 03/13/2025 303 Encounters Encounter Location Date Provider Diagnosis [facility] [address] [place] [address] 06/04/2024 PRISCILLA ARREDONDO [facility] [address] [place] [address] 03/13/2025 PRISCILLA ARREDONDO Endometriosis of Pelvic Pertineum unsp N80.30 and Pelvic and perineal pain R10.2 [facility] [address] [place] [address] 05/25/2024 PRISCILLA ARREDONDO Pelvic and perineal pain R10.2 ; Intra-abdominal and pelvic swelling, mass and lump, unspecified site R19.00 and Nausea with vomiting, unspecified R11.2 [facility] [address] [place] [address] 06/26/2024 PRISCILLA ARREDONDO Endometriosis of Pelvic Pertineum unsp N80.30 ; Polycystic ovarian syndrome E28.2 and Encntr for f/u exam aft trtmt for cond oth th Z09 [facility] [address] [facility] [address] [place] [address] 11/30/2024 PRISCILLA ARREDONDO Encounter for surveillance of contraceptive pills Z30.41 ; Pelvic and perineal pain R10.2 ; Polycystic ovarian syndrome E28.2 and Obesity, unspecified E66.[address] [facility] [place] [address] 12/31/2024 PRISCILLA ARREDONDO Nausea with vomiting , unspecified R11.2 ; Endometriosis of other pelvic peritoneum unsp N80.399 and Pelvic and perineal pain R10.2 [facility] [address] [place] [address] 05/23/2024 PRISCILLA ARREDONDO [facility] [address] [place] [address] 05/24/2024 PRISCILLA ARREDONDO [facility] [address] [place] [address] 05/28/2024 PRISCILLA ARREDONDO [facility] [address] [place] [address] 05/31/2024 PRISCILLA ARREDONDO [facility] [address] [place] [address] 06/06/2024 PRISCILLA ARREDONDO [facility] [address] [place] [address] 06/19/2024 PRISCILLA ARREDONDO [facility] [address] [place] [address] 06/26/2024 PRISCILLA ARREDONDO [facility] [address] [place] [address] 12/31/2024 PRISCILLA ARREDONDO [facility] [address] [place] [address] 01/01/2025 PRISCILLA ARREDONDO Assessments Encounter Date Diagnosis (ICD Code) Assessment Notes Treatment Notes Treatment Clinical Notes Section Notes 05/25/2024 Pelvic and perineal pain (ICD-10 - R10.2) 05/25/2024 Intra-abdominal and pelvic swelling, mass and lump, unspecified site (ICD-10 - R19.00) Painful hydrosalpinx with continued ED visits, history of complex appendix surgery as child. Robot excision of hydrosalpinx. Will ask álvarez about timing and schedule in upcoming days, suspect interstim stimulating pain cfrom a chronic hydrosalpinx but removal recommended, reviewed r/b and surgical epxectations. Doing well , reviewed mood, feeding, pain, bowel and bladder function, exam normal. Reviewed course and delivery information, all questions answered. BCM counseling completed, EDPS reviewed and in chart. Doing well in period, precautions and expectations discussed. 06/26/2024 Polycystic ovarian syndrome (ICD-10 - E28.2) 06/26/2024 Endometriosis of Pelvic Pertineum unsp (ICD-10 - N80.30) Doing well postoperatively, reviewed images, right fallopian tube removed, significant adhesive disease in pelvis, WILBERT and right slapingectomy performed. Recovering well. Reviewed endometriosis and CPP, reviewed current evidence recommends hormonal suppression, nextstellis RX given, reviwed PCOS, reviewed excellent bladder stimulator response, continue with Leonila Álvarez for this and will monitor response to treatment with this. 11/30/2024 Pelvic and perineal pain (ICD-10 - R10.2) 11/30/2024 Encounter for surveillance of contraceptive pills (ICD-10 - Z30.41) Reviewed BTB on nextstellis, reviewed may be caused by semaglutide but recommend she remain on semaglutide if helping with weight loss due to risks of BMI 46 at young age on cardiovascular health, will trial alternate OCP and did discuss risk if becomes sexually active, then can trial non oral form of hormonal regulation for PCOS if still continues with BTB on semaglutide, all questions answered. 12/31/2024 Nausea with vomiting, unspecified (ICD-10 - [...] notes, labs and CT reports reviewed today. 03/13/2025 Pelvic and perineal pain (ICD-10 - R10.2) Improvin well with myfembree, reviewed r/b improvement and positive impact on mood. She is doing well, no current complaints, continue close mood FU and monitoring, reviewed shor and buttermaker continuous churn risks, reviewed this medication is not a proven contraceptive, NSA. 03/13/2025 Endometriosis of Pelvic Pertineum unsp (ICD-10 - N80.30) Improvin well with myfembree, reviewed r/b improvement and positive impact on mood. She is doing well, no current complaints, continue close mood FU and monitoring, reviewed shor and buttermaker continuous churn risks, reviewed this medication is not a proven contraceptive, NSA. 12/31/2024 Pelvic and perineal pain (ICD-10 - R10.2) 11/30/2024 Polycystic ovarian syndrome (ICD-10 - E28.2) 06/26/2024 Encntr for f/u exam aft trtmt for cond oth th (ICD-10 - Z09) 05/25/2024 Nausea with vomiting, unspecified (ICD-10 - R11.2) 11/30/2024 Obesity, unspecified (ICD-10 - E66.9) Plan Of Treatment Pending Test Test Name Order Date Testosterone Free and Total w/SHBG, LCMS 02/09/2024 Next Appt Details Provider Name:PRISCILLA Desai, 09/11/2025 09:15:00 AM, [address] [facility] [address], [place], [address], Insurance Providers Payer Name Payer Address Payer Phone Subscriber Number Group Number Insured Name Patient Relationship to Insured Coverage Start Date Coverage End Date [facility] [address] [place] [address] [phone] [id number] Rolo Silva Child - Insured does not have Financial Responsibility (includes legally adopted child) 4 (Medicaid) [facility] [address] [place] [address] [id number] Abida Montiel Self - patient is the insured 5 Medical (General) History Medical History History ICD Code TBI Depression Anxiety PCOS atypical anorexia POTS neurogenic bladder Surgical History Surgery Date(Month/Year) appendectomy (possibly encapsulated) 200 7 tonsillectomy 2013 wisdom teeth extraction 2019 bladder Interstim - Álvarez 2023 rorbotic WILBERT and exicision of right hydr oslapinx - Vincent 2023 Hospitalization History Reason Date(Month/Year) denies
--- OUTSIDE RECORDS SUMMARY | 2025-04-21 15:39 | XMS_ITS | Clinical Summary ---
Author Organization [facility] Address [address] [place] [address] Care Team Providers Care Telesales Specialist Name Role Phone Unknown, Doctor Primary Care [...] complete this topic Procedures * Due to [place] state law, this organization might not be [...] Last 3 Months Results * Due to [place] [employer] law, this organization might not be sharing negative HIV tests. * Rapid COVID-19 RNA for Surveillance (ED Only) (04/12/2025 4:13 PM EDT) [facility] PCR, SARS CoV-2 RNA Not Detected Not Detected CEPHEID GENEXPERT 04/12/2025 5:21 PM EDT [facility] Comment:A Not Detected (Nega tive) test [...] PM EDT 04/12/2025 4:19 PM EDT Narrative [facility] - 04/12/2025 5:21 PM EDT This test was developed, validated and its performance characteristics determined by [facility]. This test has not been cleared or approved by the U.S. Food and Drug Administration (FDA). FDA Policy for Diagnostic Tests for Coronavirus Disease-2019 during the Public Health Emergency issued November 05, 2019, is followed. Katerine Wing MD LAB BODY FLUIDS AND STOOLS ORDERABLES Final Result [facility] [address] [place] [address], [place] * (ABNORMAL) CBC Auto Differential (04/12/2025 4:13 PM EDT) WBC 6.0 3.8 - 10.8 10*3/uL 04/12/2025 4:21 PM EDT [facility] RBC 4.32 3.80 - 5.10 10*6/uL 04/12/2025 4:21 PM EDT [facility] Hemoglobin 11.6(L) 11.7 - 15.5 g/dL 04/12/2025 4:21 PM EDT [facility] Hematocrit 35.4 35.0 - 45.0 % 04/12/2025 4:21 PM EDT [facility] MCV 81.9 80.0 - 100.0 fL 04/12/2025 4:21 PM EDT [facility] MCH 26.9(L) 27.0 - 33.0 pg 04/12/2025 4:21 PM EDT [facility] MCHC 32.8 32.0 - 36.0 g/dL 04/12/2025 4:21 PM EDT [facility] RDW 13.9 11.0 - 15.0 % 04/12/2025 4:21 PM EDT [facility] Platelets 263 140 - 400 10*3/uL [...] 04/12/2025 4:21 PM EDT [facility] Neutrophil # 4.08 1.50 - 7.80 10*3/uL 04/12/2025 4:21 PM EDT [facility] Immature Grans # 0.04(H) <=0.03 10*3/uL 04/12/2025 4:21 PM EDT [facility] Lymphocyte # 1.30 0.85 - 3.90 10*3/uL 04/12/2025 4:21 PM EDT [facility] Monocyte # 0.40 0.20 - 0.95 10*3/uL 04/12/2025 4:21 PM EDT [facility] Eosinophil # 0.10 0.02 - 0.50 10*3/uL 04/12/2025 4:21 PM EDT [facility] Basophil # <0.03 0.00 - 0.20 10*3/uL 04/12/2025 4:21 PM EDT [facility] nRBC % 0.0 /100 WBCs 04/12/2025 4:21 PM EDT [facility] nRBC # <0.01 <0.01 10*3/uL 04/12/2025 4:21 PM EDT [facility] Blood Structure of peripheral vein / Unknown Venipuncture / Unknown 04/12/2025 4:13 PM EDT 04/12/2025 4:18 PM EDT Katerine Wing MD LAB BLOOD ORDERABLES Final Result Performing Organization Address [facility] Co de Phone Number [facility] [address] [place] [address], [place] * hCG, Qualitative, Serum (04/12/2025 4:13 PM EDT) HCG Qualitative, Serum Negative Negative [facility] 04/12/2025 4:43 PM EDT [facility] Comment: hCG may be negative in early . Suggest repeat testing in 2-4 days if clinically indicated. The results of this test should be interpreted with the patient's clinical presentation. Blood Structure of peripheral vein / Unknown Venipuncture / Unknown 04/12/2025 4:13 PM EDT 04/12/2025 4:18 PM EDT Katerine Wing MD LAB BLOOD ORDERABLES Final Result Performing Organization Address City/[facility]/ZIP Co de Phone Number [facility] [address] [place] [address], [place] * Acetaminophen Level (04/12/2025 4:13 PM EDT) Acetaminophen <5.0 <10.0 ug/mL 04/12/2025 4:51 PM EDT [facility] Comment:Expected Range with Therapeutic Dosin-30 ug/mL Blood Structure of peripheral vein / Unknown Venipuncture / Unknown 04/12/2025 4:13 PM EDT 04/12/2025 4:18 PM EDT Katerine Wing MD LAB BLOOD ORDERABLES Final Result Performing Organization Address [facility]/ZIP Co de Phone Number [facility]ENTERFlint [facility]com GroupTHOM[facility] [address] [place] [address], [place] * Salicylate Level (04/12/2025 4:13 PM EDT) Salicylate <1 <3 mg/dL 04/12/2025 4:51 PM EDT [facility] Comment:Expected Range with Therapeutic Dosin-30 mg/dL Blood Structure of peripheral vein / Unknown Venipuncture / Unknown 04/12/2025 4:13 PM EDT 04/12/2025 4:18 PM EDT Katerine Wing MD LAB BLOOD ORDERABLES Final Result Performing Organization Address [facility] Co de Phone Number [facility]ENTERMat[facility] [address] [place] [address], [place] * (ABNORMAL) [place] Level (04/12/2025 4:13 PM EDT) [place] 0.3(L) 0.6 - 1.2 mmol/L 04/13/2025 9:09 AM EDT [facility]ENTERGuang[facility]eng[facility] Blood Structure of peripheral vein / Unknown Venipuncture / Unknown 04/12/2025 4:13 PM EDT 04/12/2025 4:18 PM EDT Darrell Kothari DO LAB BLOOD ORDERABLES Final R esult Performing Organization Address City/[facility]/ZIP Co de Phone Number [facility] [employer] [facility] [address] [place] [address], [place] * (ABNORMAL) CMP - Comprehensive Metabolic Panel (04/12/2025 4:13 PM EDT) NA 142 135 - 145 mmol/L 04/12/2025 4:50 PM EDT [facility] K 4.0 3.5 - 5.3 mmol/L 04/12/2025 4:50 PM EDT [facility] Cl 106 98 - 107 mmol/L 04/12/2025 4:50 PM EDT [facility] CO2 25 22 - 32 mmol/L 04/12/2025 4:50 PM EDT [facility] Anion Gap 11 5 - 15 04/12/2025 4:50 PM EDT [facility] Glucose 102(H) 65 - 99 mg/dL 04/12/2025 4:50 PM EDT [facility] Creatinine 0.81 0.50 - 1.20 mg/dL 04/12/2025 4:50 PM EDT [facility] Calcium 9.3 8.6 - 10.5 mg/dL 04/12/2025 4:50 PM EDT [facility] Total Protein 6.1 6.0 - 8.0 g/dL 04/12/2025 4:[address] [facility] Albumin 4.1 3.5 - 5.2 g/dL 04/12/2025 4:50 PM EDT [facility] Bilirubin, Total 0.3 0.2 - 1.2 mg/dL 04/12/2025 4:50 PM EDT [facility] Alkaline Phosphatase 77 35 - 129 U/L 04/12/2025 4:50 PM EDT [facility] AST 17 10 - 40 U/L 04/12/2025 4:50 PM EDT [facility] ALT 18 10 - 40 U/L 04/12/2025 4:50 PM EDT [facility] BUN 9 7 - 23 mg/dL 04/12/2025 4:50 PM EDT [facility] eGFR >90 >=60 mL/min/1 .73m2 04/12/2025 4:50 PM EDT [facility] Comment:The estimated glomer ular filtration rate [...] - 4.2 g/dL 04/12/2025 4:50 PM EDT [facility] A/G Ratio 2.1 1.5 - 3.0 04/12/2025 4:50 PM EDT [facility] Blood Structure of peripheral vein / Unknown Venipuncture / Unknown 04/12/2025 4:13 PM EDT 04/12/2025 4:18 PM EDT us Katerine Wing MD LAB BLOOD ORDERABLES Final Result [facility] [address] [place] [address], from Last 3 Months Insurance MEDICAID on file MEDICAID Care Teams Telesales Specialist Relationship Specialty Start Date End Date Unknown, Doctor Unknown Unknown, REED PCP - General 06/27/22
--- OUTSIDE RECORDS SUMMARY | 2025-04-21 15:39 | XMS_ITS | Clinical Summary ---
Author Organization [facility] Address [address] [place] [address] Phone Care Team Providers Care Airport Operations Duty Manager Name Role Phone Prabhjot Evangelista MD Primary Care Provider [phone] Allergies Active Allergy Reactions Criticality Noted Date [...] Recorded In the past 12 months has [employer], gas, oil, or water [employer] threatened to shut off services in your [...] any time in the past 12 m [facility], were you homeless or living in a skilled nursing (including now)? No 08/16/2024 Interpersonal Safety Answer [...] on file Legal Sex Female 10:38 AM ABSORPTION AND ADSORPTION ENGINEER Gender Identity Not on file Sexual Orientation [...] this topic Medical Devices Implanted Type Area Medical Records Administrator Device Identifier Shelf Expiration Date Model / Serial / Lot Barrier Adhesion 4x3in Absorbable Control Beyond Closure Gynecare Interceed Pelvic Sterile - Sn/A - [id number] Implanted:Qty: 1 on 06/04/2024 [place] [facility] [place]: Pelvis J [employer] J [employer] 11/19/2028 [id number] / N/A / [id number] Insurance [facility] CARE INDIVIDUAL SELECT [place] COMPLETE Advance Directives * Full Code (Latest Code Status on File) Date Activated Date Inactivated Comments 08/16/2024 12:06 AM 08/17/2024 3:32 PM Care Teams Airport Operations Duty Manager Relationship Specialty Start Date End Date Prabhjot Evangelista MD [address] [place] [address] PCP - General Family Medicine 06/04/24
--- OUTSIDE RECORDS SUMMARY | 2025-04-21 15:39 | XMS_ITS | Clinical Summary ---
Author Organization Health Address [address] [address] Phone Care Team Providers Care Pulp Operator Name Role Phone Shar Dubois DO Primary Care Provider [phone] Allergies Active Allergy Reactions Criticality Noted Date [...] Department Care Team Description 04/15/2025 Telephone [facility] [address] [address] Eleonora Holcomb LPN 04/12/2025 Results Follow-Up [address] [phone] Shar Dubois DO EEG awake or drowsy routine 04/12/2025 Orders Only [facility] [address] [phone] Altagracia Mullins, History of traumatic brain injury; Witnessed seizure-like activity (CMS-HCC) 04/11/2025 [address]phone [facility] [address] [address] Shar Dubois DO 04/08/2025 1:00 PM CDT Office Visit [facility] [address] [address] Shar Dubois DO Passive suicidal ideations (Primary Dx); Endometriosis of fallopian tube; Witnessed seizure-like activity (CMS-HCC); Laceration of scalp without foreign body, subsequent encounter 04/08/2025 Travel 04/07/2025 Travel 04/01/2025 Abstract [facility] [address] [address] Shar Dubois DO 03/13/2025 10:00 AM CDT Office Visit [facility] [address] [phone] Shar Dubois, Bipolar affective disorder, depressed in partial remission (CMS-HCC) (Primary Dx); History of traumatic brain injury; Borderline personality disorder (CMS-HCC); Autism; Witnessed seizure-like activity (CMS-HCC); Obesity, Class III, BMI 40-49.9 (morbid obesity) (CMS-HCC); History of thyroid nodule; POTS (postural orthostatic tachycardia syndrome); PCOS (polycystic ovarian syndrome) 03/13/2025 Social Work [facility] [address] [phone] Maria Jensen, SHAISTA Encounter for screening examination [...] from your doctor or pharmacy? Never 03/12/2025 [facility] Utilities Answer Date Recorded In the past [address] [facility] [employer], [place] [employer], or water [employer] threatened to shut off services in your [...] often do you attend chur ch or mormon services? More than 4 times per year 03/12/2025 Do you belong to any clubs o r organizations such as restorationist groups, unions, fraternal or athletic groups, or [...] Answer Date Recorded PHQ-2 Score 6 03/13/2025 [facility] Health - Occupational Stress Questionnaire Answer Date [...] were you homeless or living in a residential (including now)? No 03/13/2025 Comments Unknown Sex [...] Visit [facility] [address] [phone] Shar Dubois, DO [address] [place] [address] Health Maintenance Due Date Last Done Comments [...] of traumatic brain injury Witnessed seizure-like activity ([facility]-HCC) from Last 3 Months Results * EEG awake or drowsy routine (03/26/2025) Anatomical Region Laterality Modality Other Altagracia Mullins DO NEUROLOGY ORDERABLES Fin al Result from Last 3 Months Insurance [facility] [place] [address] [place] [address] [facility] Care Teams Pulp Operator Relationship Specialty Start Date End Date Shar Dubois DO [address] [place] [address] PCP - General Family Medicine 02/14/25
--- OUTSIDE RECORDS SUMMARY | 2025-04-21 15:39 | XMS_ITS | Encounter Summary ---
Author Organization [facility] Address [address] [address] Phone Care Team Providers Care Official Court Reporter Name Role Phone Shar Dubois DO Primary Care Provider Encounter Details Date Type Department Care Team (Late st Contact Info) Description 04/12/2025 Results Follow-Up [facility] [place] [address] [place] [address] Shar Dubois DO [address] [place] [address] EEG awake or drowsy routine [...] from your doctor or pharmacy? Never 03/12/2025 [facility] Utilities Answer Date Recorded In [...] often do you attend chur ch or confucianist services? More than 4 times per year 03/12/2025 Do you belong to any clubs o r organizations such as religion groups, unions, fraternal or athletic groups, or [...] Answer Date Recorded PHQ-2 Score 6 03/13/2025 [facility] of Occupat ional Health - Occupational Stress [...] any time in the past 12 m [facility], were you homeless or living in a long term (including now)? No 03/13/2025 Comments Unknown Sex and Gender Information Value Date Recorded Sex Assigned at Not on file Legal Sex Female 3:13 PM CDT Gender Identity Not on file Sexual Orientation Not on file documented as of this encounter Miscellaneous Notes * Telephone Encounter - Merlene Chang - 04/19/2025 4:51 PM CDT Patient returned message. She states that she would like these results faxed to her neurologist. Thank you. Patient had no further questions. documented in this encounter Plan of Treatment Upcoming Encounters Date Type Department Care Team (Late st Contact Info) Description 05/20/2025 9:00 AM CDT Office Visit [facility] [place] [address] [place] [phone] Shar Dubois, DO [address] [place] [address] documented as of this encounter Visit Diagnoses Not on filedocumented in this encounter Additional Health Concerns Assessment Noted Time PHQ-9 Depression Total Score: 22 025 1:00 PM CDT PHQ-2 Depression Total Score: 6 03/13/20 25 10:23 AM CDT documented as of this encounter Care Teams Official Court Reporter Relationship Specialty Start Date End Date Shar Dubois DO [address] [place] [address] PCP - General Family Medicine 02/14/25 documented as of this encounter
--- OUTSIDE RECORDS SUMMARY | 2025-04-21 15:40 | XMS_ITS | Patient Health Record ---
Author Organization [facility] Address [address] [address] Care Team Providers Care Space Officer Name Role Phone Migration, Provider Unavailable Unavailable Reason For Referral No Information Encounters Encounter Location Date Provider Diagnosis [facility] [address] [phone] 07/28/2024 Provider Migration [facility] [address] [address] 07/29/2024 Provider Migration Plan Of Treatment No Information Insurance Providers Payer Name Payer Address Payer Phone Subscriber Number Group Number Insured Name Patient Relationship to Insured Coverage Start Date Coverage End Date [facility] [address] [place] [address] [phone] [id number] Abida Montiel Self - patient is the insured Indigent WO [address] [facility] [place] [phone] [id number] Abida Montiel Self - patient is the insured
--- OUTSIDE RECORDS SUMMARY | 2025-04-21 15:40 | XMS_ITS | Clinical Summary ---
Author Organization [facility] Address [address] [place] [address] Care Team Providers Care Insurance Marketing Rep Name Role Phone Provider, No Pcp Unavailable Unavailable Prabhjot Evangelista Primary Care Provider [phone] Allergies Active Allergy Reactions Criticality Noted Date [...] CDT - 01/30/2025 2:11 AM CDT Emergency [facility] - Emergency Department [address] [place] [address] Prashant Santo MD Allergic reaction (Primary Dx) Discharge Disposition: Home or Self-Care 01/30/2025 Travel 01/28/2025 6:05 PM CDT - 01/28/2025 6:32 PM CDT Emergency [facility] - Emergency Department [address] [place] [address] Abdullahi Alvarado DO Urticaria (Primary Dx); Pruritus Discharge Disposition: Home or Self-Care 01/28/2025 5:52 AM CDT - 01/28/2025 6:35 AM CDT Emergency [facility] - Emergency Department [address] [place] [address] Jarek Ramirez DO Urticaria (Primary Dx); Pruritus Discharge Disposition: Home or Self-Care 01/28/2025 Travel 01/22/2025 6:59 PM CDT - 01/22/2025 11:31 PM CDT Emergency [facility] - Emergency Department [address] [place] [address] Elian Waller DO Closed head injury, initial [...] on file 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 Gender Identity Not on file Sexual Orientation [...] DKYELLOW, DARK YELLO 01/22/2025 8:25 PM CDT [facility] Urine Clarity Clear Clear 01/22/2025 8:25 PM CDT [facility] Urine pH 7.0 5.0, 5.5, 6.0, 6.5, 7.0, 7.5, 8.0 01/22/2025 8:25 PM CDT [facility] U Specific [place] 1.020 <=1.005 - 1.030 01/22/2025 8:25 PM CDT [facility] U Glucose Negative Negative 01/22/2025 8:25 PM CDT [facility] U Protein Negative Negative 01/22/2025 8:25 PM CDT [facility] U Bilirubin Negative Negative 01/22/2025 8:25 PM CDT [facility] U Leukocyte Esterase Negative Negative 01/22/2025 8:25 PM CDT [facility] U Ketone Negative Negative 01/22/2025 8:25 PM CDT [facility] U Blood Negative Negative 01/22/2025 8:25 PM CDT [facility] U Nitrite Negative Negative 01/22/2025 8:25 PM CDT [facility] Urine Urobilinogen 01/22/2025 8:25 PM CDT [facility] Urine Comment 01/22/2025 8:25 PM CDT [facility] Urine Entire urinary tract proper / Unknown Collection / Unknown 01/22/2025 8:19 PM CDT 01/22/2025 8:22 PM CDT [facility] - 01/22/2025 8:25 PM CDT Consider positive bilirubin results as presumptive positive. Consider confirmation by serum bilirubin if clinically indicated. Elian Waller DO LAB URINE ORDERABLES Fin al Result [facility] [address] [place] [address] * Urine (01/22/2025 8:19 PM CDT) hCG, Qual Urine Negative Negative 01/22/2025 8:27 PM CDT [facility] Urine Entire urinary tract proper / Unknown Collection / Unknown 01/22/2025 8:19 PM CDT 01/22/2025 8:22 PM CDT [facility] - 01/22/2025 8:27 PM CDT hCG is not usually detected in healthy men and healthy non- women. However, hCG levels in will usually exceed 25 mIU/mL two to three days prior to the first missed menstrual period. us Elian J Mueggenborg DO LAB URINE ORDERABLES Fin al Result [facility] [address] [place] [address] * (ABNORMAL) POC iSTAT (01/22/2025 8:13 PM CDT) iSTAT Cartridge CHEM 8 PEGGY 8:17 PM T [facility] Location [facility] 01/22/2025 8:17 PM T [facility] POC Employee ID [id number] 8:17 PM [facility] Specimen Type PEGGY 01/22/2025 8:17 PM [facility] Anion Gap 20(H) 4 - 16 mmol/L 01/22/2025 8:17 PM [facility] Blood Urea Nitrogen 15 7 - 25 mg/dL 01/22/2025 8:17 PM [facility] Calcium, Ionized 1.22 1.00 - 1.30 mmol/L 01/22/2025 8:17 PM [facility] Carbon Dioxide Level 27 18 - 30 mmol/L 01/22/2025 8:17 PM [facility] Chloride 102 98 - 110 mmol/L 01/22/2025 8:17 PM [facility] Creatinine 0.90 0.50 - 1.10 mg/dL 01/22/2025 8:17 PM [facility] Glucose Level 92 65 - 99 mg/dL 01/22/2025 8:17 PM [facility] Potassium 3.7 3.5 - 5.3 mmol/L 01/22/2025 8:17 PM [facility] Sodium 144 135 - 146 mmol/L 01/22/2025 8:17 PM [facility] Hematocrit 35.0 35.0 - 45.0 % 01/22/2025 8:17 PM [facility] Hemoglobin 11.9 11.7 - 15.5 g/dL 01/22/2025 8:17 PM CDT [facility] Blood 01/22/2025 8:13 PM CDT 01/22/2025 8:18 PM CDT Narrative [facility] - 01/22/2025 8:17 PM CDT INR INTERPRETATION: Suggested INR Therapeutic Range for oral anticoagulant therapy (stably anticoagulated patients) Routine therapy: 2.0 - 3.0 Infarction or mechanical prosthetic valves: 2.5 - 3.5 us Elian Waller DO LAB POINT OF CARE TEST O RDERABLES Final Result [facility] [address] [place] [address] * ECG 12 lead (01/22/2025 8:07 PM CDT) Heart Rate ECG 117 bpm TRACEMASTER RR Interval ECG 512 ms TRACEMASTER Atrial Rate ECG 118 ms TRACEMASTER AL Interval 149 ms TRACEMASTER P Duration 108 ms TRACEMASTER P Horizontal [place] ECG 5 deg TRACEMASTER P Front [place] ECG 44 deg TRACEMASTER Q Onset ECG 508 ms TRACEMASTER QRSD Interval 80 ms TRACEMASTER QT Interval 340 ms TRACEMASTER QTcB ECG 475 ms TRACEMASTER QTcF ECG 425 ms TRACEMASTER QRS Horizontal [place] ECG -40 deg TRACEMASTER QRS [place] ECG 5 deg TRACEMASTER I-40 Horizontal [place] ECG 61 deg TRACEMASTER I-40 Front [place] ECG 85 deg TRACEMASTER T-40 Horizontal [place] ECG -77 deg TRACEMASTER T-40 Front [place] ECG -10 deg TRACEMASTER T Horizontal [place] ECG -15 deg TRACEMASTER T Wave [place] [address] Horizontal [place] ECG [address] Front [place] ECG 49 deg TRACEMASTER 01/22/2025 8:07 PM [...] Final Report Electronically Signed By - Stevan aMrquez MD Signed On - 01/22/2025 7:46 PM Elian Waller DO IMG CT ORDERABLES Final Result from Last 3 Months Insurance Member Subscriber Plan / Payer (Ef fective for All Dates) Name:Abida Montiel Relation to Subscriber:Child Name:RADHA JACOBS Date of :1900 (Home) Address: [address] [place] [address] Payer ID:[id number] Type:Not on file Address: [address] [facility] Care Teams Insurance Marketing Rep Relationship Specialty Start Date End Date Prabhjot Evangelista [address] [place] [address] PCP - General 01/30/25 Provider, No Pcp 01/22/25
--- OUTSIDE RECORDS SUMMARY | 2025-04-21 15:40 | XMS_ITS | Clinical Summary ---
Author Organization [facility] [place] [address] [place] [address] Phone Care Team Providers Care Store Management Trainee Name Role Phone Unavailable Primary Care Provider [...] Comments Blood Pressure 94/73 10/01/2023 6:15 PM TRAFFIC RATE COMPUTER Pulse 115 10/01/2023 6:15 PM TRAFFIC RATE COMPUTER Temperature 36.9 C (98.4 F) 10/01/2023 4:30 PM TRAFFIC RATE COMPUTER Respiratory Rate 17 10/01/2023 6:15 PM TRAFFIC RATE COMPUTER Oxygen Saturation 96% 10/01/2023 6:15 PM TRAFFIC RATE COMPUTER Inhaled Oxygen Concentration - - Weight 106.6 kg (235 lb) 10/01/2023 4:08 PM TRAFFIC RATE COMPUTER Height 165.1 cm (5' 5 ) 10/01/2023 4:08 PM TRAFFIC RATE COMPUTER Body Mass Index 39.11 10/01/2023 4:08 PM TRAFFIC RATE COMPUTER Plan of Treatment Health Maintenance Due Date [...] :1973 (Home) Address: [address] [place] [address] Payer ID:Not on file Type:HMO Address: [address] ONLY [employer] (INTERNAL) [facility] [employer]
--- OUTSIDE RECORDS SUMMARY | 2025-04-21 15:41 | XMS_ITS | Patient Health Record ---
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 Name Role Phone Mohanmarbella Prabhjot Primary Care Provider Katiuska Bustamante Unavailable [phone] Rosa Dotson Unavailable [phone] Talisha Cohen Unavailable [phone] Kirti Ivana Unavailable [phone] Isidra Guerra Unavailable [phone] Allergies Allergen (clinical drug ingredient) Drug/Non Drug Allergy documented on EMR Reaction Allergy Type Onset Date Status Information temporarily unavailable Long Eddy Hives Drug Allergy Active Information temporarily unavailable Wellbutrin Hives Drug Allergy Active Information temporarily unavailable Invega Anaphylaxis Drug Allergy Active Information temporarily unavailable busPIRone HCl hives, swelling Drug Allergy Active Information temporarily unavailable Bactrim DS Hives Drug Allergy Active Information temporarily unavailable Metformin Hives Drug Allergy Active Results Component Value Reference Range Notes *Urine Culture, Routine (008 847) Reviewed date:05/25/2024 03:54:12 PM Interpretation: Performing Lab:[facility] [address] [place] [address] [address], [place], [place] [id number], Phone - [phone], Director - Julee Notes/Report: Urine Culture, Routine Final report Result 1 Mixed urogenital qamar Greater than 100,000 colony forming units per mL DHEA-Sulfate (144101) Reviewed date:10/22/2024 05:12:34 PM Interpretation: Performing Lab:[facility] [address] [place] [address] [address], [place], [place] [id number], Phone - [phone], Director - Keli Notes/Report: Test(s) 117225-Grgagncryfmkelm LCMS was developed and its performance characteristics determined by [facility]. It has not been cleared or approved by the Food and Drug Administration. DHEA-Sulfate 250.0 110.0-431.7 ug/dL *Progesterone (632034) Reviewed date:10/22/2024 05:12:34 PM Interpretation: Performing Lab:[facility] [address] [place] [address] [address], [place], [place] [id number], Phone - [phone], Director - Keli Notes/Report: Test(s) 157794-Qvhhzhvehzrcyts LCMS was developed and its performance characteristics determined by [facility]. It has not been cleared or approved by the Food and Drug Administration. Progesterone 0.1 Follicular phase 0.1 - 0.9 Luteal phase 1.8 - 23.9 Ovulation phase 0.1 - 12.0 First trimester 11.0 - 44.3 Second trimester 25.4 - 83.3 Third trimester 58.7 - 214.0 Postmenopausal 0.0 - 0.1 Androstenedione LCMS (182797 ) Reviewed date:10/22/2024 05:12:34 PM Interpretation: Performing Lab:[facility] [address] [place], [place] [address], [place], [place] [id number], Phone - [phone], - Keli Notes/Report: Test(s) 714870-Ghjwjjrqtwmiten LCMS was developed and its performance characteristics determined by [facility]. It has not been cleared or approved by the Food and Drug Administration. Androstenedione LCMS 95 41-262 ng/dL *FSH and LH (413663) Reviewed date:10/22/2024 05:12:34 PM Interpretation: Performing Lab:[facility] [address] [place], [place] [address], [place], [place] [id number], Phone - [phone], - Keli Notes/Report: Test(s) 564000-Webysvnapagxsun LCMS was developed and its performance characteristics determined by [facility]. It has not been cleared or approved by the Food and Drug Administration. LH 7.5 Adult Female Range Follicular phase 2.4 - 12.6 Ovulation phase 14.0 - 95.6 Luteal phase 1.0 - 11.4 Postmenopausal 7.7 - 58.5 FSH 6.2 Adult Female Range Follicular phase 3.5 - 12.5 Ovulation phase 4.7 - 21.5 Luteal phase 1.7 - 7.7 Postmenopausal 25.8 - 134.8 *Vitamin D, 25-Hydroxy (0819 50) Reviewed date:10/22/2024 05:12:34 PM Interpretation: Performing Lab:[facility] [address] [place], [place] [address], [place], [place] [id number], Phone - [phone], Director - Keli Notes/Report: Test(s) 250377-Paqikfbojotqgmp LCMS was developed and its performance characteristics determined by [facility]. It has not been cleared or approved by the Food and Drug Administration. Vitamin D, 25-Hydroxy 20.6 30.0-100.0 ng/mL Vitamin D deficiency has been defined by the [place] and an Endocrine Society practice guideline as a level of serum 25-OH vitamin D less than 20 ng/mL (1,2). The Endocrine Society went on to further define vitamin D insufficiency as a level between 21 and 29 ng/mL (2). 1. IOM ([place] [employer]). 2010. Dietary reference intakes for calcium and D. [place]: The National Academies Press. 2. Delfino MF, Moise NC, Mindi MANCILLA, et al. Evaluation, treatment, and prevention of vitamin D deficiency: an Endocrine Society clinical practice guideline. JCEM. 2010; 96(7):1911-30. *Testosterone,Free and Total (081094) Reviewed date:10/22/2024 05:12:34 PM Interpretation: Performing [facility] [address] [place], [place] [id number], Phone - [phone], Director - Keli Notes/Report: Test(s) 799702-Emkuxqnynshsrrt LCMS was developed and its performance characteristics determined by [facility]. It has not been cleared or approved by the Food and Drug Administration. Testosterone 38 13-71 ng/dL Free Testosterone(Direct) 2.7 0.0-4.2 pg/mL *Estradiol (745508) Reviewed date:10/22/2024 05:12:34 PM Interpretation: Performing Lab:[facility] [address], [place], [place] [id number], Phone - [phone], Director - Keli Notes/Report: Test(s) 545168-Hnwhfafyhdnzhre LCMS was developed and its performance characteristics determined by [facility]. It has not been cleared or approved by the Food and Drug Administration. Estradiol 36.2 Adult Female Range Follicular phase 12.5 - 166.0 Ovulation phase 85.8 - 498.0 Luteal phase 43.8 - 211.0 Postmenopausal <6.0 - 54.7 1st trimester 215.0 - >4300.0 Brittany ECLIA methodology H. pylori Stool Ag, EIA (180 764) Reviewed date:12/26/2024 03:27:09 PM Interpretation: Performing Lab[facility] [address] [place], [place] [id number], Phone - [phone], Director - Keli Notes/Report: Clinical Information:SRC: H. pylori Stool Ag, EIA Negative Negative *Vitamin D, 25-Hydroxy (0819 50) Reviewed date:03/06/2025 11:53:11 AM Interpretation: Performing Lab:[facility] [address] [place], [place] [id number], Phone - [phone], Director - Keli Notes/Report: Vitamin D, 25-Hydroxy 19.2 30.0-100.0 ng/mL Vitamin D deficiency has been defined by the [place] [employer] and an Endocrine Society practice guideline as a level of serum 25-OH vitamin D less than 20 ng/mL (1,2). The Endocrine Society went on to further define vitamin D insufficiency as a level between 21 and 29 ng/mL (2). 1. IOM ([place] [employer]). 2010. Dietary reference intakes for calcium and D. [place]: The National Academies Press. 2. Delfino MF, Moise [place], Mindi MANCILLA, et al. Evaluation, treatment, and prevention of vitamin D deficiency: an Endocrine Society clinical practice guideline. JCEM. 2010; 96(7):1911-30. Nicotine and Metabolite, Peterson nt (983285) Reviewed date:10/11/2024 09:34:30 AM Interpretation:Negative Performing Lab: Notes/Report: Nicotine <1.0 Cotinine <1.0 [facility] (746385) Reviewed date:10/11/2024 09:35:27 AM Interpretation: Performing Lab: Notes/Report: Glucose 82 70-99 mg/dL Hemoglobin A1c 5.0 4.8-5.6 % BUN 9 6-20 mg/dL Creatinine 0.72 0.57-1.00 mg/dL eGFR 121 >59 mL/min/1.73 BUN/Creatinine Ratio 13 9-23 Sodium 141 134-144 mmol/L Potassium 4.2 3.5-5.2 mmol/L Chloride 102 96-106 mmol/L Carbon Dioxide, Total 26 20-29 mmol/L Calcium 9.5 8.7-10.2 mg/dL Protein, Total 7.2 6.0-8.5 g/dL Albumin 4.5 4.0-5.0 g/dL Globulin, Total 2.7 1.5-4.5 g/dL Bilirubin, Total 0.3 0.0-1.2 mg/dL Alkaline Phosphatase 86 44-121 IU/L AST (SGOT) 17 0-40 IU/L ALT (SGPT) 15 0-32 IU/L Cholesterol, Total 183 100-199 mg/dL Triglycerides 134 0-149 mg/dL HDL Cholesterol 38 >39 mg/dL VLDL Cholesterol Rodrigo 24 5-40 mg/dL LDL Chol Calc (NIH) 121 0-99 mg/dL T. Chol/HDL Ratio 4.8 0.0-4.4 ratio Estimated CHD Risk 1.2 0.0-1.0 times avg. TSH 1.680 0.450-4.500 uIU/mL WBC 6.1 3.4-10.8 x10E3/uL RBC 4.82 3.77-5.28 x10E6/uL Hemoglobin 13.1 11.1-15.9 g/dL Hematocrit 42.4 34.0-46.6 % MCV 88 79-97 fL MCH 27.2 26.6-33.0 pg MCHC 30.9 31.5-35.7 g/dL RDW 12.9 11.7-15.4 % Platelets 315 150-450 x10E3/uL Neutrophils 67 Not Estab. % Lymphs 24 Not Estab. % Monocytes 5 Not Estab. % Eos 2 Not Estab. % Basos 1 Not Estab. % Neutrophils (Absolute) 4.2 1.4-7.0 x10E3/uL Lymphs (Absolute) 1.5 0.7-3.1 x10E3/uL Monocytes(Absolute) 0.3 0.1-0.9 x10E3/uL Eos (Absolute) 0.1 0.0-0.4 x10E3/uL Baso (Absolute) 0.0 0.0-0.2 x10E3/uL Immature Granulocytes 1 Not Estab. % Immature Grans (Abs) 0.0 0.0-0.1 x10E3/uL Reason For Referral Reason the bees female with recurrent upper abdominal pain with nausea. Eating abdominal sonogram. Diagnosis 1 Epigastric pain (R10 .13) Referral Organization [facility] Referring Provider First Name Prabhjot Referring Provider Last Name Tonja Referring Provider [facility] Referred Organization [facility] Referred Provider [facility], [facility] Referred Address [facility] [address] [facility] [address] [facility],[place], [place],[address],[place] Referred Provider Specialty Radiology Procedure 1 Abdominal Ultrasound (58809) General Notes Jack Parada 03:43:12 PM >referral faxed to [facility] Referral Priority Routine Referral Appointment Date 08/17/2024 Reason Left shoulder tendin itis, suspected adhesive capsulitis; Ortho referral Diagnosis 1 Shoulder tendinitis, unspecified laterality (M75.80) Referral Organization [facility] Referring Provider First Name Isidra Referring Provider Last Name Mari Referring Provider [facility] Referred Provider [facility] Referred Provider Specialty Orthopedic S solery General Notes Rosa Castro 01:31:26 PM >DL and IC attachedAlayna Tresa 12/11/2024 12:25:29 PM >ring to pt__ faxed to [facility]: phone [phone] in [place]. If you have not heard from them in 3 days, please call their office to check status of your referral to possible scheduling. Please send a text back to this number with your appointment information once it has been scheduled.Alayna Tresa 12/19/2024 12:31:53 PM >RING FROM PT__Appointment is 12/13/24 at 7:30am, REQ Alayna SANTOS Tresa 01/03/2025 07:57:55 AM >notes recieved. sending to provider and closing referral. Referral Priority Routine Referral Appointment Date 12/13/2024 Reason 24-year-old female w ith unexplained nausea for several weeks progressive and now with mostly left upper quadrant abdominal pain. 3 visits to date visiting the emergency department with negative ultrasound and CT of the abdomen. Currently on ondansetron for the severe nausea. Needing gastroenterology consultation regarding her ongoing nausea vomiting and abdominal pain. Constipation that she had in the middle of this has been rectified. Diagnosis 1 LUQ abdominal pain ( R10.12) Referral Organization [facility] Referring Provider First Name Prabhjot Referring Provider Last Name Tonja Referring Provider [facility] Referred Organization [facility] Referred Provider MATIAS SAPP Referred Address [address],[place],[address],[place] Referred Provider Specialty Gastroentero logy General Notes Prabhjot Evangelista 02:41:27 PM >This referral should be done urgently as she has visited the emergency department 3 times and has severe unrelenting vomiting and we need to keep her out of the emergency department., Jack Parada 12/20/2024 10:48:04 AM >faxed referral to [facility] 12/21/2024 03:30:28 PM >Patient called to say that the place referral was sent [facility] if out of network and needs to be sent somewhere else, Jack Parada 12/21/2024 04:18:01 PM >[facility] 12/26/2024 07:43:12 AM >referral faxed to [facility], Jack Parada 12/28/2024 03:38:47 PM >Faxed to Dr Matias Sapp at [facility] (in network and Dad [facility] said they could get her in quickly)Karma Rheannon 12/28/2024 04:25:51 PM >Spoke with [facility] to confirm they received referral. She was sending it directly to the clinical rehabilitation coordinator so that they could get her scheduled [facility] Referral Priority Urgent Referral Appointment Date 02/27/2025 Medications Medication SIG (Take, Route, Frequency, Duration) Notes Start Date End Date Status Sertraline HCl 50 MG 4 tablets Orally Once a day for 30 days 01/09/2025 Not-Taking Omeprazole 20 MG 1 capsule 30 minutes before morning meal Orally Once a day for 30 day(s) 12/07/2024 Not-Taking Sertraline HCl 100 MG 2 tablets Orally Once a day for 90 days 01/09/2025 Active Metoprolol Tartrate 50 MG 1/2 tablet wit h food Orally Twice a day for 90 days 11/15/2024 Not-Taking Phentermine HCl 30 MG 1 capsule Orally Once a day In the morning. for 30 days 04/01/2025 05/01/2025 Active Promethazine HCl 25 MG 1 tablet as needed Orally every 6 hrs for 30 days Caution: No driving while taking medication 12/31/2024 Not-Taking Ondansetron 8 MG 1/2 tablet on the tongue and allowed to dissolve Orally 3 times daily for 7 days 12/07/2024 Not-Taking Celecoxib 100 MG 1 capsule Orally Once a day for 90 days Not-Taking Ketorolac Tromethamine Not-Taking Cyclobenzaprine HCl 5 MG 1 tablet at bed time as needed Orally Once a day for 90 days Not-Taking Abilify 30 MG 1 tablet Orally Once a day Active Pantoprazole Sodium 40 MG 1 tablet 1/2 t o 1 hour before morning meal Orally Once a day for 90 days Not-Taking Haldol Active MiraLax Not-Taking Vistaril Active Drospirenone-Ethinyl Estradiol 3-0.02 MG 1 tablet Orally Once a day Not-Taking [place] 8 MEQ/5ML 300mg tablet 3 times a day Active Myfembree 40-1-0.5 MG 1 tablet Orally On ce a day Active Polyethylene Glycol Not-Taking Senna 8.6 MG 2 tablets at bedtime as needed Orally Once a day Not-Taking Nortriptyline HCl 25 MG 1 capsule at bed time Orally Once a day Not-Taking Topiramate 50 MG 1 tablet Orally Once a day For the 1st week and then increase to twice daily. for 30 days 04/01/2025 Active traZODone HCl 100 MG 1 tablet at bedtime Orally Once a day Active Immunizations Vaccine Route Administration Date Status Comme nts PPD (TB Skin Test) ID Intradermal 05/01/2024 Administered Social History Tobacco Use: Social History Observation [...] ast year? No Points 0 Interpretation Negative Problems Problem Type SNOMED Code ICD Code Onset Dates Problem Status W/U Status Risk Notes Problem Affective psychosis (024918568) Unspecified mood [affective] disorder (F39) Active confirmed Problem 410301109 Thyroid nodule (E04.1) Active confirmed Problem 980052483 Morbid obesity (E66.01) Active confirmed Problem Information temporarily unavailable PCOS (polycystic ovarian syndrome) (E28.2) Active confirmed Problem Mood disorder (96432460) Mood disorder (F39) Active confirmed Problem Information temporarily unavailable Neurogenic bladder (N31.9) Active confirmed Problem 770205515 Endometriosis (N80.9) Active confirmed Problem Information temporarily unavailable Post concussion syndrome (F07.81) Active confirmed Problem 223532055 Hepatic steatosi s (K76.0) Active confirmed Problem 27049897 Recurrent major depressive disorder, in partial remission (F33.41) Active confirmed Problem 592286429 Obsessive-compul s ramiro disorder, unspecified type (F42.9) Active confirmed Problem 723987487 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) Active confirmed Problem 872566769 POTS (postural orthostatic tachycardia syndrome) (G90.A) Active confirmed Vital Signs Heart Rate 102 /min 04/01/2025 Temperature 98.5 degrees Fahrenheit 04/01/2025 Respiratory Rate 18 /min 04/01/2025 Height-cm 165.1 cm 04/01/2025 Oximetry 98 % 04/01/2025 Blood pressure diastolic 81 mm Hg 04/01/2025 Weight-kg 137.98 kg 04/01/2025 Height 65 in 04/01/2025 Blood pressure systolic 123 mm Hg 04/01/2025 Weight 304.2 lbs 04/01/2025 BMI 50.62 kg/m2 04/01/2025 Encounters Encounter Location Date Provider Diagnosis [facility] [address] [place] [address] 05/01/2024 Katiuska Ray Tuberculosis screeni ng Z11.1 [facility] [address] [place] [address] 05/03/20[facility] Z02.0 [facility] [address] [place] [address] 05/22/2024 Katiuska Ray Dysuria R30.0 [facility] [address] [place] [address] 06/27/2024 Katiuska Ray Recurrent major depressive disorder, in partial remission F33.41 and Neurogenic bladder N31.9 [place] [address] [place] [address] 08/01/2024 Rosa Dotson Recurrent major depressive disorder, in partial remission F33.41 [facility] [address] [place] [address] 08/14/2024 Prabhjot Evangelista Mood disorder F39 ; Obsessive-compulsive disorder, unspecified type F42.9 ; PCOS (polycystic ovarian syndrome) E28.2 ; Morbid obesity E66.01 and Epigastric pain R10.13 [facility] [address] [place] [address] 10/01/2024 Prabhjot Evangelista Inappropriate lactat ion N64.3 ; Low vitamin D level R79.89 ; Morbid obesity E66.01 ; Recurrent major depressive disorder, in partial remission F33.41 ; Hepatic steatosis K76.0 and POTS (postural orthostatic tachycardia syndrome) G90.A [facility] [address] [place] [address] 10/18/2024 Prabhjot Evangelista Strep pharyngitis J0 2.0 [facility] [address] [place] [address] 11/15/2024 Prabhjot Evangelista PHA Review PHA ; Moo d disorder F39 ; Low vitamin D level R79.89 ; PCOS (polycystic ovarian syndrome) E28.2 ; Morbid obesity E66.01 and POTS (postural orthostatic tachycardia syndrome) G90.A [facility] [address] [place] [address] 12/04/2024 Isidra Guerra Shoulder tendonitis M75.80 [facility] [address] [place] [address] 12/07/2024 Prabhjot Evangelista Nausea and vomiting, unspecified vomiting type R11.2 [facility] [address] [place] [address] 12/10/2024 Isidra Guerra Shoulder tendinitis, unspecified laterality M75.80 [facility] [address] [place] [address] 12/14/2024 Prabhjot Evangelista Mood disorder F39 ; Nausea R11.0 and Nausea and vomiting, unspecified vomiting type R11.2 [facility] [address] [place] [address] 12/19/2024 Prabhjot Evangelista Nausea R11.0 ; LUQ abdominal pain R10.12 ; Morbid obesity E66.01 and Recurrent major depressive disorder, in partial remission F33.41 [facility] [address] [place] [address] 12/26/2024 Prabhjot Evangelista Lower abdominal pain R10.30 ; Epigastric pain R10.13 ; PCOS (polycystic ovarian syndrome) E28.2 ; History of endometriosis Z87.42 and Nausea and vomiting, unspecified vomiting type R11.2 [facility] [address] [place] [address] 01/09/2025 Prabhjot Evangelista PCOS (polycystic ovarian syndrome) E28.2 ; Morbid obesity E66.01 ; Recurrent major depressive disorder, in partial remission F33.41 ; Lower abdominal pain R10.30 ; Endometriosis N80.9 ; Nausea and vomiting, unspecified vomiting type R11.2 and Chronic constipation K59.09 [facility] [address] [place] [address] 02/28/2025 Prabhjot Evangelista Inappropriate lactat ion N64.3 ; Low vitamin D level R79.89 ; Obsessive-compulsive disorder, unspecified type F42.9 ; PCOS (polycystic ovarian syndrome) E28.2 ; Morbid obesity E66.01 ; Recurrent major depressive disorder, in partial remission F33.41 and History of traumatic brain injury Z87.820 [facility] [address] [place] [address] 04/01/2025 Prabhjot Evangelista Mood disorder F39 ; Low vitamin D level R79.89 ; Morbid obesity E66.01 ; Recurrent major depressive disorder, in partial remission F33.41 ; Obsessive-compulsive disorder, unspecified type F42.9 ; History of traumatic brain injury Z87.820 ; Chronic constipation K59.09 and History of endometriosis Z87.42 [facility] [address] [place] [address] 05/04/2024 Prabhjot Evangelista [facility] [address] [place] [address] 07/05/2024 Prabhjot Evangelista Recurrent major depressive disorder, in partial remission F33.41 [facility] [address] [place] [address] 10/18/2024 Prabhjot Evangelista [facility] [address] [place] [address] 10/18/2024 Prabhjot Evangelista [facility] [address] [place] [address] 12/17/2024 Prabhjot Evangelista [facility] [address] [place] [address] 12/31/2024 Katiuska Bustamante [facility] [address] [place] [address] 03/01/2025 Prabhjot Evnagelista Assessments Encounter Date Diagnosis (ICD Code) Assessment Notes Treatment Notes Treatment Clinical Notes Section Notes 05/01/2024 Tuberculosis screening (ICD-10 - Z11.1) TB skin test applied today she will return and see Dr. Evangelista on for her physical and skin test reading for EMT clinicals 05/22/2024 Dysuria (ICD-10 - R30.0) uti vs new nerve feeling/communicati on to her bladder ua not significant but with recent surgery, repeat surgery next week, dysuria, fever/chills will go ahead and treat start macrobid 100mg bid for 7 days check urine c/s keep f/u w/urology 06/27/2024 Recurrent major depressive disorder, in partial remission (ICD-10 - F33.41) s/p suicidal attempt in January and suicidal ideation last week. She just completed two weeks of inpt care at [facility]. She will f/u w/psych next week [facility]. No SI at this time 12/04/2024 Shoulder tendonitis (ICD-10 - M75.80) At this time, patient seems to have left shoulder tendinitis and possibly the beginnings of adhesive capsulitis. We discussed that bixbh-ii-slrfhs exercises are paramount with either possibility. She may use ibuprofen, iqsxn-fw-rvradu exercises, heat, and ice. If she is not better in 2 weeks, I have recommended that she follow back up with me and I will send her to orthopedics for further evaluation and treatment. All questions were answered and patient verbalizes understanding. I do not believe in x-rays required at this time as she has had no injury or trauma to her shoulder. 12/10/2024 Shoulder tendinitis, unspecified laterality (ICD-10 - M75.80) At this time, patient will continue to do anti-inflammatories , ice, and oumjr-jo-yowwve exercises. I do suspect adhesive capsulitis and I will send her to Orthopedics. Referral was placed. All questions were answered and patient verbalizes understanding of plan. 05/03/2024 School physical exam (ICD-10 - Z02.0) she had 0 mm react Jevity with the PPD and filled out her form for her and will have follow-up p.r.n.. 06/27/2024 Neurogenic bladder (ICD-10 - N31.9) 2/2 traumatic brain injury/post concussion syndrome she is 1mos post axonics sacral neuromodulator placement as well as right fillopian tube removal w/endometriosis. She has not been able to reach her surgeon for return to work note. She plans to return to work on 07/09. She only needed two weeks off but has now been off for 1mos due to above. Okay to return to work. 08/01/2024 Recurrent major depressive disorder, in partial remission (ICD-10 - F33.41) Med working well. Continue to see psychiatrist. Go to ER if having thoughts of harming self or others. Pt verbalizes understanding and agreement. 08/14/2024 Mood disorder (ICD-10 - F39) same medications. 08/14/2024 Obsessive-compuls ramiro disorder, unspecified type (ICD-10 - F42.9) Same medications. 10/01/2024 Inappropriate (ICD-10 - N64.3) 10/18/2024 Strep pharyngitis (ICD-10 - J02.0) Continue with his cephalexin. Will add prednisone with taper starting at 30 mg over the next 10 days. We will send culture of tongue. Advised that it will take more than 24 hours to see effects of the antibiotic. Recommend that she finish this and then take a probiotic. 11/15/2024 PHA Review (ICD-10 - PHA) reviewed all labs with her today. 11/15/2024 Mood disorder (ICD-10 - F39) Stay on her present medications. 12/07/2024 Nausea and vomiting, unspecified vomiting type (ICD-10 - R11.2) stay on her present medications at this time. We will start on ondansetron 4 mg t.i.d. PRN and follow-up in 7 days. We will start on omeprazole in the case of possible H pylori being the cause other than medication side effects. She has an appointment in 12 days with her psychiatrist and it is recommended that we not make any changes with regards to her psychotropic medications until then. 12/14/2024 Mood disorder (ICD-10 - F39) Follow-up next week with psychiatrist. 12/14/2024 Nausea (ICD-10 - R11.0) We will continue on the ondansetron and have her follow-up after she sees her psychiatrist. Advised that the diclofenac could cause more nausea but she will keep an eye on this. 12/19/2024 Nausea (ICD-10 - R11.0) continue on the ondansetron. 12/19/2024 LUQ abdominal pain (ICD-10 - R10.12) She will use the Toradol for the abdominal pain advised potential for it also causing problems. Will send in to gastroenterology consultation. 12/26/2024 Lower abdominal pain (ICD-10 - R10.30) this may be due to her underlying endometriosis 12/26/2024 Epigastric pain (ICD-10 - R10.13) We are awaiting EGD with Gastroenterology but if this is negative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
[2025-04-21 17:38] VITALS: BP 113/58; PULSE 78; RESP 18; TEMP 36.8; O2SAT 99
== END 2025-04-21 17:39 ==
PROVIDERS: Emergency Provider Emergency Medicine
DX: S09.8XXA Other specified injuries of head, initial encounter (principal); R46.89 Other symptoms and signs involving appearance and behavior; W22.09XA Striking against other stationary object, initial encounter; Y93.89 Activity, other specified; Y92.89 Other specified places as the place of occurrence of the external cause; Y99.8 Other external cause status; Z87.820 Personal history of traumatic brain injury; Z79.899 Other long term (current) drug therapy
CPT/HCPCS: 70450; 72125; 99284; 99285

== ENCOUNTER → 2025-04-21 14:41 | Outpatient (BNV) | payer SELFPAY | PROVIDERS: Emergency Provider Emergency Medicine; Visit Provider Radiology Diagnostic Radiology | DX: M50.30 Other cervical disc degeneration, unspecified cervical region (principal); S09.90XA Unspecified injury of head, initial encounter | CPT/HCPCS: 70450; 72125 ==

== ENCOUNTER 2025-04-22 14:45 | Emergency (ER) | payer SELFPAY ==
--- OUTSIDE RECORDS SUMMARY | 2024-07-28 05:00 | XMS_ITS ---
Author Organization [facility] Address [address] [place] [phone] Care Team Providers Care Waxing Machine Operator Helper Name Role Phone Migration, Provider Unavailable Unavailable REASON FOR VISIT EMR-Erich Encounters Encounter Location Date Provider Diagnosis [facility] [address] [place] [phone] 07/28/2024 Provider Migration Plan Of Treatment No Information Progress Notes * SOLA AmilcarAngelinaOB:2000 (25 yo F)Acc No.[id number]:07/28/2024 Patient: Fausto VALEROelyn :2000 A ge:24 Y S ex:Female Phone: Address:[address] [place] [address], [place], [address] Subjective: * Chief Complaints: * E MR-Erich * Medical History: * Surgical History: * Hospitalization/Major Diagno stic Procedure: * Medications: Objective: * Vitals: * Physical Examination: Assessment: Plan: * Treatment: * Procedure Codes: * * Date:
--- OUTSIDE RECORDS SUMMARY | 2024-07-29 05:00 | XMS_ITS ---
Author Organization [facility] e [facility] Address [address] [place] [phone] Care Team Providers Care Recreational Therapist Name Role Phone Migration, Provider Unavailable Unavailable REASON FOR VISIT EMR-Erich Encounters Encounter Location Date Provider Diagnosis [facility] [address] [place] [phone] 07/29/2024 Provider Migration Plan Of Treatment No Information Progress Notes * SOLA AmilcarAngelinaOB:2000 (25 yo F)Acc No.[id number]:07/29/2024 Patient: Fausto VALEROelyn :2000 A ge:24 Y S ex:Female Phone: Address:[address] [place] [address], [place], [address] Subjective: * Chief Complaints: * E MR-Erich * Medical History: * Surgical History: * Hospitalization/Major Diagno stic Procedure: * Medications: Objective: * Vitals: * Physical Examination: Assessment: Plan: * Treatment: * Procedure Codes: * * Date:
--- OUTSIDE RECORDS SUMMARY | 2024-12-31 11:30 | XMS_ITS ---
Author Organization [facility] Address [address] [place] [address] Care Team Providers Care Golf Course Patroller Name Role Phone Prabhjot Evangelista MD Primary Care Provider Unavail able ARNULFOPRISCILLA Unavailable [phone] Allergies Allergen (clinical drug ingredient) Drug/Non Drug Allergy documented on EMR Reaction Allergy Type Onset Date Status sulfamethoxazole / trimethoprim Bactrim Unknown Drug Allergy Active Fish derivative (substance) Fish-derived Products Unknown Drug Allergy Active metformin Metformin Unknown Drug Allergy Active [facility] pelvic pain - endometriosis [...] 17 GM Oral for 30 Days Active [place] Carbonate 300 MG 1 capsule at be [...] Date Provider Diagnosis [facility] [address] [place] [address] 12/31/2024 PRISCILLA ARREDONDO Nausea with vomiting , [...] Desai, 09/11/2025 09:15:00 AM, [address] [facility], [place], [address], Progress Notes * Abida SELBY EDOB: [birth year] (24 yo F)Acc No.[id number]:12/31/2024 Patient: Tab Abida JOLLY Provider: Jessy Arredondo M.D. :2000 A ge:24 Y S ex:Female Date:12/31/2024 Address:[address] [facility] [place] Pcp:Prabhjot Evangelista MD Subjective: * Chief Complaints: [...] in the morning. * Medical History: * Protection Analyst History: D enies H/O Gardasil series. D [...] 3350 17 GM Packet Oral Not- TakingSemaglutide [place] Carbonate 300 MG Capsule 1 capsule at [...] Release 24 Hour Oral Not-Taking Semaglutide Not-Taking [place] Carbonate 300 MG Capsule 1 capsule at [...] sympsoms * Billing Information: * Visit Code: 26158 Office Visit, Est Pt., Level 4. * Procedure Codes: * Sign off status: Completed true * Provider: Jessy Arredondo M.D. Date: 0 12/31/2024 Generated for Karani curtis/Rob/eTransmitting on: 0 04/22/2025 02:21 PM CDT History and Physical Notes * [...]
--- OUTSIDE RECORDS SUMMARY | 2025-01-01 05:38 | XMS_ITS ---
Author Organization [facility] Address [address] [place] [address] Care Team Providers Care Lyric Writer Name Role Phone Tonja COLON, Prabhjot Primary Care Provider Unavail PRISCILLA Wyatt Unavailable [phone] Encounters Encounter Location Date Provider Diagnosis [facility] [address] [place] [address] 01/01/2025 PRISCILLA ARREDONDO Plan Of Treatment Next Appt Details Provider Name:PRISCILLA Desai, 09/11/2025 09:15:00 AM, [address], [place], [address], Progress Notes * Abida SELBY EDOB: 2 (24 yo F)Acc No.[id number]:01/01/2025 Patient: Abida VALERO :2000 A ge:24 Y S ex:Female Address:[address] [place] [address], [place] [address] * true * Date: Generated for Colton acevedo/Rob/eTransmitting on: 0 04/22/2025 02:21 PM CDT
--- OUTSIDE RECORDS SUMMARY | 2025-01-21 07:15 | XMS_ITS ---
Author Organization [facility] Address [address] [place] [address] Care Team Providers Care Tailercpa Name Role Phone Tonja COLON, Prabhjot Primary Care Provider Unavail PRISCILLA Wyatt Unavailable [phone] REASON FOR VISIT 3 wk symptoms f/u Encounters Encounter Location Date Provider Diagnosis [facility] [address] [place] [address] 01/21/2025 PRISCILLA ARREDONDO Plan Of Treatment Next Appt Details Provider Name:PRISCILLA Desai, 09/11/2025 09:15:00 AM, [address], [place], [address], Progress Notes * Abida SELBY EDOB: 2 (25 yo F)Acc No.[id number]:01/21/2025 Patient: Fausto VALEROóscar Russ Provider: Jessy Arredondo M.D. :2000 A ge:24 Y S ex:Female Date:01/21/2025 Address:[address] [place] [address], [id number] Pcp:Prabhjot Evangelista MD Subjective: * Chief Complaints: * 1 . 3 wk symptoms f/u. * Medical History: Objective: * Vitals: Assessment: Plan: * Treatment: * Billing Information: * Visit Code: * Procedure Codes: * Electronic signature of ALEXNADRIA ARREDONDO MD on 04/22/2025 at 02:21 PM CDT Sign off status: Pending * Provider: Jessy Arredondo M.D. Date: 01/21/2025 Generated for Colton acevedo/Rob/Sony on: 04/22/2025 02:21 PM CDT
--- OUTSIDE RECORDS SUMMARY | 2025-02-01 07:30 | XMS_ITS ---
Author Organization [facility] Address [address] [place] [address] Care Team Providers Care Knotter Hand Name Role Phone Tonja COLON, Prabhjot Primary Care Provider Unavail PRISCILLA Wyatt Unavailable [phone] REASON FOR VISIT has appt on 01/21 Encounters Encounter Location Date Provider Diagnosis [facility] [address] [place] [address] 02/01/2025 PRISCILLA ARREDONDO Plan Of Treatment Next Appt Details Provider Name:PRISCILLA Desai, 09/11/2025 09:15:00 AM, [address], [place], [address], Progress Notes * Abida SELBY EDOB: 2 (25 yo F)Acc No.[id number]:02/01/2025 Patient: Abida VALERO Provider: Jessy Arredondo M.D. :2000 A ge:24 Y S ex:Female Date:02/01/2025 [facility] Pcp:Prabhjot Evangelista MD Subjective: * Chief Complaints: * 1 . Has appt on 01/21. * Medical History: Objective: * Vitals: Assessment: Plan: * Treatment: * Billing Information: * Visit Code: * Procedure Codes: * Electronic signature of ALEXANDRIA ARREDONDO MD on 04/22/2025 at 02:24 PM CDT Sign off status: Pending * Provider: Jessy Arredondo M.D. Date: 0 02/01/2025 Generated for Colton acevedo/Rob/Sony on: 0 04/22/2025 02:24 PM CDT
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
--- OUTSIDE RECORDS SUMMARY | 2025-03-18 05:00 | XMS_ITS ---
Author Organization [facility] Address [address] [place] [address] Care Team Providers Care Machine Stapler Name Role Phone Prabhjot Evangelista Primary Care Provider REASON FOR VISIT Lab draw results Encounters Encounter Location Date Provider Diagnosis [facility] [address] [place] [address] 03/18/2025 Prabhjot Evangelista Plan Of Treatment No Information Progress Notes * Abida SELBY EDOB: [birth year] (25 yo F)Acc No.[id number]:03/18/2025 Progress Note - Follow-Up Patient: Abida VALERO Appointment Provider: Ruth Ann Evangelista MD :2000 A ge:24 Y S ex:Female Date:03/18/2025 External Visit ID:[id number] Address:[address] , [place] [address] Subjective: * Chief Complaints: * 1 . Lab draw results. * Medical History: Objective: * Vitals: * Physical Examination: Assessment: Plan: * Treatment: * * Electronic signature of Prabhjot Evangelista MD on 04/22/2025 at 02:22 PM CDT Sign off status: Pending * Appointment Provider: Ruth Ann Evangelista MD Date: 03/18/2025 Generated for Colton acevedo/Rob/eTransmitting on: 0 04/22/2025 02:22 PM CDT
--- OUTSIDE RECORDS SUMMARY | 2025-03-26 06:30 | XMS_ITS ---
Author Organization [facility] Address [address] [place] [address] Care Team Providers Care Cartoon Artist Name Role Phone Prabhjot Evangelista Primary Care Provider REASON FOR VISIT Lab results Encounters Encounter Location Date Provider Diagnosis [facility] [address] [place] [address] 03/26/2025 Prabhjot Evangelista Plan Of Treatment No Information Progress Notes * Abida SELBY EDOB: [birth year] (25 yo F)Acc No.[id number]:03/26/2025 Progress Note - Follow-Up Patient: Abida VALERO Appointment Provider: Ruth Ann Evangelista MD :2000 A ge:24 Y S ex:Female Date:03/26/2025 External Visit ID:[id number] Address:[address] , [place] [address] Subjective: * Chief Complaints: * 1 . Lab results. * Medical History: Objective: * Vitals: * Physical Examination: Assessment: Plan: * Treatment: * * Electronic signature of Prabhjot Evangelista MD on 04/22/2025 at 02:22 PM CDT Sign off status: Pending * Appointment Provider: Ruth Ann Evangelista MD Date: 03/26/2025 Generated for Printi ng/Famakayla/eTransmitting on: 04/22/2025 02:22 PM CDT
[2025-04-22 14:55] VITALS: BP 112/80; PULSE 100; O2SAT 97
[2025-04-22 15:01] VITALS: BP 119/71; PULSE 97; RESP 20; TEMP 36.6; O2SAT 98; BMI 49.4
--- OUTSIDE RECORDS SUMMARY | 2025-04-22 15:22 | XMS_ITS | Clinical Summary ---
Author Organization Health Address [address] [address] Phone Care Team Providers Care Negative Cleaner Name Role Phone Shar Dubois DO Primary Care Provider [phone] Allergies Active Allergy Reactions Criticality Noted Date [...] Department Care Team Description 04/15/2025 [address]phone [facility] [address] [address] Eleonora Holcomb LPN 04/12/2025 Results Follow-Up [address] [phone] Shar Dubois DO EEG awake or drowsy routine 04/12/2025 Orders Only [facility] [address] [phone] Altagracia Mullins, History of traumatic brain injury; Witnessed seizure-like activity (CMS-HCC) 04/11/2025 [address]phone [facility] [address] [address] Shar Dubois DO 04/08/2025 1:00 PM CDT Office Visit [facility] [address] [address] Shar Dubois DO Passive suicidal ideations (Primary Dx); Endometriosis of fallopian tube; Witnessed seizure-like activity (CMS-HCC); Laceration of scalp without foreign body, subsequent encounter 04/08/2025 Travel 04/07/2025 Travel 04/01/2025 Abstract [facility] [address] [address] Shar Dubois DO 03/13/2025 10:00 AM CDT Office Visit [facility] [address] [phone] Shar Dubois, Bipolar affective disorder, depressed in partial remission (CMS-HCC) (Primary Dx); History of traumatic brain injury; Borderline personality disorder (CMS-HCC); Autism; Witnessed seizure-like activity (CMS-HCC); Obesity, Class III, BMI 40-49.9 (morbid obesity) (CMS-HCC); History of thyroid nodule; POTS (postural orthostatic tachycardia syndrome); PCOS (polycystic ovarian syndrome) 03/13/2025 Social Work [facility] [address] [phone] Maria Jensen, SHAISTA Encounter for screening examination [...] from your doctor or pharmacy? Never 03/12/2025 [facility] Utilities Answer Date Recorded In the past 12 months has [facility] [employer], [employer], or water [employer] threatened to shut off services in your [...] often do you attend chur ch or moravian services? More than 4 times per year 03/12/2025 Do you belong to any clubs o r organizations such as rastafari groups, unions, fraternal or athletic groups, or [...] Date Recorded PHQ-2 Score 6 03/13/2025 [facility] - Occupational Stress Questionnaire Answer Date [...] were you homeless or living in a nursing home (including now)? No 03/13/2025 Comments Unknown Sex [...] Visit [facility] [address] [phone] Shar Dubois, DO [address] [place] [address] Health Maintenance Due Date Last Done Comments [...] of traumatic brain injury Witnessed seizure-like activity ([facility]) from Last 3 Months Results * EEG awake or drowsy routine (03/26/2025) Anatomical Region Laterality Modality Other Altagracia Mullins DO NEUROLOGY ORDERABLES Fin al Result from Last 3 Months Insurance [facility] [place] [address] [address] [place] [address] HEALTH COMMUNITY CARE COMPLETE HEALTH COMMUNITY CARE COMPLETE HEALTH Care Teams Negative Cleaner Relationship Specialty Start Date End Date Shar Dubois DO [address] [place] [address] PCP - General Family Medicine 02/14/25
--- OUTSIDE RECORDS SUMMARY | 2025-04-22 15:22 | XMS_ITS | Encounter Summary ---
Author Organization [facility] Address [address] [address] Phone Care Team Providers Care Director Career Services Name Role Phone Shar Dubois DO Primary Care Provider [phone] Encounter Details Date Type Department Care Team (Late st Contact Info) Description 04/12/2025 Results Follow-Up [facility] [place] [address] [place] [address] Shar Dubois DO [address] [place] [address] EEG awake or drowsy routine [...] from your doctor or pharmacy? Never 03/12/2025 [facility] Utilities Answer Date Recorded In the [...] often do you attend chur ch or uatsdin services? More than 4 times per year 03/12/2025 Do you belong to any clubs o r organizations such as mormonism groups, unions, fraternal or athletic groups, or [...] Answer Date Recorded PHQ-2 Score 6 03/13/2025 [facility] - Occupational Stress [...] any time in the past 12 m [facility], were you homeless or living in a [facility] (including now)? No 03/13/2025 Comments Unknown Sex [...] [facility] [place] [address] [place] [phone] Shar Dubois, DO [address] [place] [address] documented as of this encounter Visit Diagnoses Not on filedocumented in this encounter Additional Health Concerns Assessment Noted Time PHQ-9 Depression Total Score: 22 025 1:00 PM CDT PHQ-2 Depression Total Score: 6 03/13/20 25 10:23 AM CDT documented as of this encounter Care Teams Director Career Services Relationship Specialty Start Date End Date Shar Dubois DO [address] [place] [address] PCP - General Family Medicine 02/14/25 documented as of this encounter
--- OUTSIDE RECORDS SUMMARY | 2025-04-22 15:24 | XMS_ITS | Patient Health Record ---
Author Organization [employer] [facility] Address [address] [place] [address] Care Team Providers Care Machine Shop Apprentice Name Role Phone Prabhjot Evangelista MD Primary Care Provider Unavail able ARNULFO PRISCILLA Unavailable [phone] Allergies Allergen (clinical drug ingredient) Drug/Non Drug Allergy documented on EMR Reaction Allergy Type Onset Date Status sulfamethoxazole / trimethoprim Bactrim Unknown Drug Allergy Active Fish derivative (substance) Fish-derived Products Unknown Drug Allergy Active metformin Metformin Unknown Drug Allergy Active Reason For [...] Oral for 30 Days Active Haldol Active Elberta Carbonate 300 MG 1 capsule at be [...] Problem Status W/U Status Risk Notes Problem Polycystic ovary syndrome (disorder) (894584979) Polycystic ovarian syndrome (E28.2) Active confirmed Problem Chronic salpingitis (49945711) Chronic salpingitis (N70.11) Active confirmed Problem Abnormal uterine bleeding (30021747431328 ) Abnormal uterine and vaginal bleeding, unspecified (N93.9) Active confirmed Problem Endometriosis of other pelvic peritoneum unsp (N80.399) Active confirmed Vital Signs Height-cm 165.1 cm 03/13/2025 303 Blood pressure diastolic 82 mm Hg 03/13/2025 303 Weight-kg 137.44 kg 03/13/2025 303 Height 65 in 03/13/2025 303 Blood pressure systolic 120 mm Hg 03/13/2025 303 Weight 303 lbs 03/13/2025 303 BMI 50.42 kg/m2 03/13/2025 303 Encounters Encounter Location Date Provider Diagnosis [facility] [address] [place] [address] 06/04/2024 PRISCILLA ARREDONDO [facility] [address] [place] [address] 03/13/2025 PRISCILLA ARREDONDO Endometriosis of Pelvic Pertineum unsp N80.30 and Pelvic and perineal pain R10.2 [facility] [address] [address] 05/25/2024 PRISCILLA ARREDONDO Pelvic and perineal pain R10.2 ; Intra-abdominal and pelvic swelling, mass and lump, unspecified site R19.00 and Nausea with vomiting, unspecified R11.2 [facility] [address] [place] [address] 06/26/2024 PRISCILLA ARREDONDO Endometriosis of Pelvic Pertineum unsp N80.30 ; Polycystic ovarian syndrome E28.2 and Encntr for f/u exam aft trtmt for cond oth th Z09 [facility][note 3][address] [place], [place] [address] [address] 11/30/2024 PRISCILLA ARREDONDO Encounter for surveillance of contraceptive pills Z30.41 ; Pelvic and perineal pain R10.2 ; Polycystic ovarian syndrome E28.2 and Obesity, unspecified E66.9 [facility][note 3][address] [place], [place] [address] [address] [address] 12/31/2024 PRISCILLA ARREDONDO Nausea with vomiting , unspecified R11.2 ; Endometriosis of other pelvic peritoneum unsp N80.399 and Pelvic and perineal pain R10.2 [facility][note 3][address] [place], [place] [address] [address] 05/23/2024 PRISCILLA ARREDONDO [facility] [address] [address] 05/24/2024 PRISCILLA ARREDONDO [facility] [address] [address] 05/28/2024 PRISCILLA ARREDONDO [facility] [address] [address] 05/31/2024 PRISCILLA ARREDONDO [facility][note 3][address] [facility] [address] [address] 06/06/2024 PRISCILLA ARREDONDO [facility][note 3][address] [place] [address] 06/19/2024 PRISCILLA ARREDONDO [facility] [address] [place] [address] 06/26/2024 PRISCILLA ARREDONDO [facility] [address] [place] [address] 12/31/2024 PRISCILLA ARREDONDO [facility] [address] [place] [address] 01/01/2025 PRISCILLA ARREDONDO Assessments Encounter Date Diagnosis (ICD Code) Assessment Notes Treatment Notes Treatment Clinical Notes Section Notes 05/25/2024 Pelvic and perineal pain (ICD-10 - R10.2) 05/25/2024 Intra-abdominal and pelvic swelling, mass and lump, unspecified site (ICD-10 - R19.00) Painful hydrosalpinx with continued ED visits, history of complex appendix surgery as child. Robot excision of hydrosalpinx. Will ask henri about timing and schedule in upcoming days, [...] excellent bladder stimulator response, continue with Leonila Florian for this and will monitor response to [...] mood FU and monitoring, reviewed shor and snf risks, reviewed this medication is not a proven contraceptive, NSA. 03/13/2025 Endometriosis of Pelvic Pertineum unsp (ICD-10 - N80.30) Improvin well with myfembree, reviewed r/b improvement and positive impact on mood. She is doing well, no current complaints, continue close mood FU and monitoring, reviewed shor and snf risks, reviewed this medication is not a [...] 09:15:00 AM, [address], [facility] [address], [place], [address], Insurance Providers Payer Name Payer Address Payer Phone Subscriber Number Group Number Insured Name Patient Relationship to Insured Coverage Start Date Coverage End Date [facility] [address] [place] [address] [id number] Rolo Silva Child - Insured does not have Financial Responsibility (includes legally adopted child) 4 (Medicaid) [facility] [address] [place] [phone] [id number] Abida oMntiel Self - patient is the insured 5 Medical (General) History Medical History History ICD Code TBI Depression Anxiety PCOS atypical anorexia POTS neurogenic bladder Surgical History Surgery Date(Month/Year) appendectomy (possibly encapsulated) 200 7 tonsillectomy 2013 wisdom teeth extraction 2019 bladder Interstim - Florian 2023 rorbotic WILBERT and exicision of right hydr oslapinx - Arnulfo 2023 Hospitalization History Reason Date(Month/Year) denies
--- OUTSIDE RECORDS SUMMARY | 2025-04-22 15:24 | XMS_ITS | Clinical Summary ---
Author Organization [address] [facility] Address [address] [place] [address] Phone Care Team Providers Care Aids Counselor Name Role Phone Jaerk Ratliff NP Primary Care Provider [phone] Encounters Date Type Department Care Team Description 04/19/2025 Lab Requisition [facility] Lab [address] [place] [address] Jarek Ratliff NP Other alf (current) drug therapy 04/19/2025 Lab Requisition [facility] Lab [address] [place] [address] Jarek Ratliff NP from Last 3 Months Social History Tobacco Use Types Packs/Day Years Used Date Smoking Tobacco: Never Assessed Comments Unknown Sex and Gender Information Value Date Recorded Sex Assigned at Not on file Legal Sex Female 9:13 AM EDT Gender Identity Not on file Sexual Orientation Not on file Plan of Treatment Health Maintenance Due Date Last Done Comments Gonorrhea/Chlamydia Screening 2002 HPV Vaccines (1 - 3-dose series) 2017 Meningococcal B Vaccine (1 o f 2 - Standard) 2018 DTaP,Tdap,and Td Vaccines (1 - Tdap) 2021 Hepatitis B Vaccines (1 of 3 - 19+ 3-dose series) 2021 Cervical Cancer Screening: P ap Smear 2023 COVID-19 Vaccine ( - 2023-2 5 season) 2024 Depression Screening 08/22/2024 HIV Screening 04/19/2025 Hepatitis C Screening 04/19/2025 Social Influencers of Health Screening 04/19/2025 Influenza Vaccine (#1) 2025 Cholesterol Screening (Lipid Panel) 04/19/2030 04/19/2025 HIB Vaccines Aged Out No longer eligi ble based on patient's age to complete this topic Hepatitis A Vaccines Aged Out No long er eligible based on patient's age to complete this topic IPV Vaccines Aged Out No longer eligi ble based on patient's age to complete this topic MMR Vaccines Aged Out No longer eligi ble based on patient's age to complete this topic Meningococcal ACWY Vaccine Aged Out N o longer eligible based on patient's age to complete this topic Pneumococcal Vaccine: Pediat rics (0 to 5 Years) and At-Risk Patients (6 to 49 Years) Aged Out No longer eligi ble based on patient's age to complete this topic RSV Immunization Patients Un jacky 20 months Aged Out No longer eligible b ased on patient's age to complete this topic Varicella Vaccines Aged Out No longer eligible based on patient's age to complete this topic Procedures Procedure Name Priority Date/Time Associated Diagnosis Comments LITHIUM LEVEL Routine 04/19/2025 7:00 AM EDT Other alf (current) drug therapy LIPID PANEL WITH REFLEX TO DIRECT LDL Routine 04/19/2025 7:00 AM EDT Other bed bug exterminator (current) drug therapy COMPREHENSIVE METABOLIC PANEL Routine 04/19/2025 7:00 AM EDT Other alf (current) drug therapy from Last 3 Months Results * (ABNORMAL) Lipid panel with reflex to direct LDL (04/19/2025 7:00 AM EDT) Cholesterol 180 0 - 200 mg/dL LAB CHEMISTRY METHOD 04/19/2025 10:53 AM EDT [facility] Triglycerides 133 0 - 150 mg/dL LAB CHEMISTRY METHOD 04/19/2025 10:53 AM EDT [facility] HDL 34(L) >=40 mg/dL LAB CHEMISTRY METHOD 04/19/2025 10:53 AM T [facility] LDL Calculated 119(H) 0 - 100 mg/dL LAB CHEMISTRY METHOD 04/19/2025 10:53 AM T [facility] Comment:Estimated LDL Calcul ated using equation: Total cholesterol - HDL cholesterol - (Triglycerides/5) VLDL Cholesterol Rodrigo 26.6 mg/dL LAB CHEMISTRY METHOD 04/19/2025 10:53 AM EDT [facility] Non HDL Chol. (LDL+VLDL) 146(H) <145 mg/dL LAB CHEMISTRY METHOD 04/19/2025 10:53 AM EDT [facility] Chol/HDL Ratio 5.3(H) 0.0 - 4.4 LAB CHEMISTRY METHOD 04/19/2025 10:53 AM EDT [facility] Blood Venous blood specimen / Unknown Venipuncture / Unknown 04/19/2025 7:00 AM EDT 04/19/2025 9:21 AM EDT Jarek Ratliff NP LAB BLOOD ORDERABLES Final Resu lt Performing Organization Address City/[facility]/ZIP Co de Phone Number [facility] [address] [place] [address], [place] [phone] * [place] level (04/19/2025 7:00 AM EDT) [place] Level 0.9 0.6 - 1.2 mEq/L LAB CHEMISTRY METHOD 04/19/2025 10:53 AM EDT [facility] Blood Venous blood specimen / Unknown Venipuncture / Unknown 04/19/2025 7:00 AM EDT 04/19/2025 9:21 AM EDT Jarek Ratliff NP LAB BLOOD ORDERABLES Final Resu lt [facility] [address] [place] [address], [place] [phone] * (ABNORMAL) Comprehensive metabolic panel (04/19/2025 7:00 AM EDT) Sodium 140 133 - 145 mmol/L LAB CHEMISTRY METHOD 04/19/2025 10:53 AM EDT [facility] Potassium 4.1 3.5 - 5.5 mmol/L LAB CHEMISTRY METHOD 04/19/2025 10:53 AM [facility] Chloride 108 96 - 110 mmol/L LAB CHEMISTRY METHOD 04/19/2025 10:53 AM [facility] CO2 30 21 - 32 mmol/L LAB CHEMISTRY METHOD 04/19/2025 10:53 AM [facility] Anion Gap 2(L) 3 - 11 LAB CHEMISTRY METHOD 04/19/2025 10:53 AM [facility] Glucose 69(L) 70 - 100 mg/dL LAB CHEMISTRY METHOD 04/19/2025 10:53 AM [facility] BUN 11 5 - 25 mg/dL LAB CHEMISTRY METHOD 04/19/2025 10:53 AM [facility] Creatinine 0.82 0.50 - 1.10 mg/dL LAB CHEMISTRY METHOD 04/19/2025 10:53 AM [facility] eGFR 103 >=60 mL/min/1. 73m2 LAB CHEMISTRY METHOD 04/19/2025 10:53 AM [facility] Comment:Calculation based on the Chronic Kidney Disease Epidemiology Collaboration (CKD-EPI) equation refit without adjustment for race. BUN/Creatinine Ratio 13.4 LAB CHEMISTRY METHOD 04/19/2025 10:53 AM [facility] Calcium 9.3 8.5 - 10.5 mg/dL LAB CHEMISTRY METHOD 04/19/2025 10:53 AM [facility] AST (SGOT) 15 10 - 42 unit/L LAB CHEMISTRY METHOD 04/19/2025 10:53 AM [facility] ALT (SGPT) 19 10 - 60 unit/L LAB CHEMISTRY METHOD 04/19/2025 10:53 AM [facility] Alkaline Phosphatase 78 42 - 121 unit/L LAB CHEMISTRY METHOD 04/19/2025 10:53 AM [facility] Total Protein 6.2 6.0 - 8.0 g/dL LAB CHEMISTRY METHOD 04/19/2025 10:53 AM EDT [facility] Albumin 3.7 3.2 - 5.0 g/dL LAB CHEMISTRY METHOD 04/19/2025 10:53 AM EDT [facility] Total Bilirubin 0.5 0.0 - 1.4 mg/dL LAB CHEMISTRY METHOD 04/19/2025 10:53 AM EDT [facility] Blood Venous blood specimen / Unknown Venipuncture / Unknown 04/19/2025 7:00 AM EDT 04/19/2025 9:21 AM EDT Jarek Ratliff NP LAB BLOOD ORDERABLES Final Resu lt [facility] [address] [place] [address], from Last 3 Months Care Teams Aids Counselor Relationship Specialty Start Date End Date Jarek Ratliff NP [facility] [place] [address] PCP - General 04/19/25
--- OUTSIDE RECORDS SUMMARY | 2025-04-22 15:24 | XMS_ITS | Patient Health Record ---
Author Organization [facility] Address [address] [address] Care Team Providers Care Learning Technologies Specialist Name Role Phone Migration, Provider Unavailable Unavailable Reason For Referral No Information Encounters Encounter Location Date Provider Diagnosis [facility] [address] [address] 07/28/2024 Provider Migration [facility] [address] [address] 07/29/2024 Provider Migration Plan Of Treatment No Information Insurance Providers Payer Name Payer Address Payer Phone Subscriber Number Group Number Insured Name Patient Relationship to Insured Coverage Start Date Coverage End Date [facility] [address] [place] [address] [phone] [id number] Abida Montiel Self - patient is the insured Indigent [address] [facility] [place] [phone] [id number] Abida Montiel Self - patient is the insured
--- OUTSIDE RECORDS SUMMARY | 2025-04-22 15:24 | XMS_ITS | Encounter Summary ---
Author Organization [facility] Address [address] [place] [address] Care Team Providers Care School Curriculum Developer Name Role Phone Jarek Ratliff NP Primary Care Provider [phone] Encounter Details Date Type Department Care Team (Late st Contact Info) Description 04/19/[address] 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 Social History Tobacco Use Types Packs/Day Years Used Date Smoking Tobacco: Never Assessed Comments Unknown Sex and Gender Information Value Date Recorded Sex Assigned at Not on file Legal Sex Female 9:13 AM EDT Gender Identity Not on file Sexual Orientation Not on file documented as of this encounter Plan of Treatment Not on file documented as of this encounter Procedures Procedure Name Priority Date/Time Associated Diagnosis Comments LIPID PANEL WITH REFLEX TO DIRECT LDL Routine 04/19/2025 7:00 AM EDT Other retirement (current) drug therapy LITHIUM LEVEL Routine 04/19/2025 7:00 AM EDT Other retirement (current) drug therapy COMPREHENSIVE METABOLIC PANEL Routine 04/19/2025 7:00 AM EDT Other retirement (current) drug therapy documented in this encounter Results * [place] level (04/19/2025 7:00 AM EDT) [place] Level 0.9 0.6 - 1.2 mEq/L LAB CHEMISTRY METHOD 04/19/2025 10:53 AM EDT [facility] Blood Venous blood specimen / Unknown Venipuncture / Unknown 04/19/2025 7:00 AM EDT 04/19/2025 9:21 AM EDT us Jarek Ratliff NP LAB BLOOD ORDERABLES Final Resu lt [facility] [address] [place] [address], [place] [phone] * (ABNORMAL) Lipid panel with reflex to direct LDL (04/19/2025 7:00 AM EDT) Cholesterol 180 0 - 200 mg/dL LAB CHEMISTRY METHOD 04/19/2025 10:53 AM EDT [facility] Triglycerides 133 0 - 150 mg/dL LAB CHEMISTRY METHOD 04/19/2025 10:53 AM [facility] HDL 34(L) >=40 mg/dL LAB CHEMISTRY METHOD 04/19/2025 10:53 AM T [facility] LDL Calculated 119(H) 0 - 100 mg/dL LAB CHEMISTRY METHOD 04/19/2025 10:53 AM EDT [facility] Comment:Estimated LDL Calcul ated using equation: Total cholesterol - HDL cholesterol - (Triglycerides/5) VLDL Cholesterol Rodrigo 26.6 mg/dL LAB CHEMISTRY METHOD 04/19/2025 10:53 AM [facility] Non HDL Chol. (LDL+VLDL) 146(H) <145 mg/dL LAB CHEMISTRY METHOD 04/19/2025 10:53 AM EDT [facility] Chol/HDL Ratio 5.3(H) 0.0 - 4.4 LAB CHEMISTRY METHOD 04/19/2025 10:53 AM T [facility] Blood Venous blood specimen / Unknown Venipuncture / Unknown 04/19/2025 7:00 AM EDT 04/19/2025 9:21 AM EDT us Jarek [employer] LAB BLOOD ORDERABLES Final Resu lt [facility] [address] [place] [address], * (ABNORMAL) Comprehensive metabolic panel (04/19/2025 7:00 AM EDT) Sodium 140 133 - 145 mmol/L LAB CHEMISTRY METHOD 04/19/2025 10:53 AM [facility] Potassium 4.1 3.5 - 5.5 mmol/L LAB CHEMISTRY METHOD 04/19/2025 10:53 AM [facility] Chloride 108 96 - 110 mmol/L LAB CHEMISTRY METHOD 04/19/2025 10:53 AM [facility] CO2 30 21 - 32 mmol/L LAB CHEMISTRY METHOD 04/19/2025 10:53 AM [facility] Anion Gap 2(L) 3 - 11 LAB CHEMISTRY METHOD 04/19/2025 10:53 AM [facility] Glucose 69(L) 70 - 100 mg/dL LAB CHEMISTRY METHOD 04/19/2025 10:53 AM [facility] BUN 11 5 - 25 mg/dL LAB CHEMISTRY METHOD 04/19/2025 10:53 AM [facility] Creatinine 0.82 0.50 - 1.10 mg/dL LAB CHEMISTRY METHOD 04/19/2025 10:53 AM [facility] eGFR 103 >=60 mL/min/1. 73m2 LAB CHEMISTRY METHOD 04/19/2025 10:53 AM [facility] Comment:Calculation based on the Chronic Kidney Disease Epidemiology Collaboration (CKD-EPI) equation refit without adjustment for race. BUN/Creatinine Ratio 13.4 LAB CHEMISTRY METHOD 04/19/2025 10:53 AM [facility] Calcium 9.3 8.5 - 10.5 mg/dL LAB CHEMISTRY METHOD 04/19/2025 10:53 AM EDT [facility] AST (SGOT) 15 10 - 42 unit/L LAB CHEMISTRY METHOD 04/19/2025 10:53 AM T [facility] ALT (SGPT) 19 10 - 60 unit/L LAB CHEMISTRY METHOD 04/19/2025 10:53 AM [facility] Alkaline Phosphatase 78 42 - 121 unit/L LAB CHEMISTRY METHOD 04/19/2025 10:53 AM EDT [facility] Total Protein 6.2 6.0 - 8.0 g/dL LAB CHEMISTRY METHOD 04/19/2025 10:53 AM [facility] Albumin 3.7 3.2 - 5.0 g/dL LAB CHEMISTRY METHOD 04/19/2025 10:53 AM [facility] Total Bilirubin 0.5 0.0 - 1.4 mg/dL LAB CHEMISTRY METHOD 04/19/2025 10:53 AM T [facility] Blood Venous blood specimen / Unknown Venipuncture / Unknown 04/19/2025 7:00 AM EDT 04/19/2025 9:21 AM EDT Jarek Ratliff NP LAB BLOOD ORDERABLES Final Resu lt [facility] [address] [place] [address], documented in this encounter Visit Diagnoses Diagnosis Other retirement (current) drug therapy documented in this encounter Care Teams School Curriculum Developer Relationship Specialty Start Date End Date Jarek Ratliff NP [address] [place] [address] PCP - General 04/19/25 documented as of this encounter
--- OUTSIDE RECORDS SUMMARY | 2025-04-22 15:24 | XMS_ITS | Encounter Summary ---
Author Organization [facility] Address [address] [place] [address] Care Team Providers Care Kick Plate Installer Name Role Phone Jarek Ratliff NP Primary Care Provider [phone] Encounter Details Date Type Department Care Team (Late st Contact Info) Description 04/19/2025 Lab Requisition [facility] Lab [address] [facility] [place] [address] Jarek Ratliff NP [facility] [place] [address] Social History Tobacco Use Types Packs/Day Years [...] Diagnoses Not on filedocumented in this encounter Care Teams Kick Plate Installer Relationship Specialty Start Date End Date Jarek Ratliff NP [facility] [place] [address] PCP - General 04/19/25 documented as of this encounter
--- OUTSIDE RECORDS SUMMARY | 2025-04-22 15:24 | XMS_ITS | Clinical Summary ---
Author Organization [employer] Address [address] [place] [address] Care Team Providers Care Curb Hop Name Role Phone Provider, No Pcp Unavailable Unavailable Prabhjot Evangelista Primary Care Provider [phone] Allergies Active Allergy Reactions Criticality Noted Date [...] 01/30/2025 2:11 AM CDT Emergency [facility] - Emergency Department [address] [place] [address] Prashant Santo MD Allergic reaction (Primary Dx) Discharge Disposition: Home or Self-Care 01/30/2025 Travel 01/28/2025 6:05 PM CDT - 01/28/2025 6:32 PM CDT Emergency [facility] [address] [place] [address] Abdullahi Alvarado DO Urticaria (Primary Dx); Pruritus Discharge Disposition: Home or Self-Care 01/28/2025 5:52 AM CDT - 01/28/2025 6:35 AM CDT Emergency [facility] - Emergency Department [address] [place] [address] Jarek Ramirez DO Urticaria (Primary Dx); Pruritus Discharge Disposition: Home or Self-Care 01/28/2025 Travel 01/22/2025 6:59 PM CDT - 01/22/2025 11:[address] [facility] - Emergency Department [address] [place] [address] Elian Waller DO Closed head injury, initial [...] on file Legal Sex Female 6:43 PM [employer] Gender Identity Not on file Sexual Orientation [...] 01/22/2025 8:25 PM CDT [facility] Urine Clarity Clear Clear 01/22/2025 8:25 PM CDT [facility] Urine pH 7.0 5.0, 5.5, 6.0, 6.5, 7.0, 7.5, 8.0 01/22/2025 8:25 PM CDT [facility] U Specific [place] 1.020 <=1.005 - 1.030 01/22/2025 8:25 PM CDT [facility] U Glucose Negative Negative 01/22/2025 8:25 PM CDT [facility] U Protein Negative Negative 01/22/2025 8:25 PM CDT [facility] U Bilirubin Negative Negative 01/22/2025 8:25 PM CDT [facility] U Leukocyte Esterase Negative Negative 01/22/2025 8:25 PM CDT [facility] U Ketone Negative Negative 01/22/2025 8:25 PM CDT [facility] U Blood Negative Negative 01/22/2025 8:25 PM CDT [facility] U Nitrite Negative Negative 01/22/2025 8:25 PM CDT [facility] Urine Urobilinogen 01/22/2025 8:25 PM CDT [facility] Urine Comment 01/22/2025 8:25 PM CDT [facility] Urine Entire urinary tract proper / Unknown Collection / Unknown 01/22/2025 8:19 PM CDT 01/22/2025 8:22 PM CDT [facility] - 01/22/2025 8:25 PM CDT Consider positive bilirubin results as presumptive positive. Consider confirmation by serum bilirubin if clinically indicated. Elian Waller DO LAB URINE ORDERABLES Fin al Result [facility] [address] [place] [address] * Urine (01/22/2025 8:19 PM CDT) hCG, Qual Urine Negative Negative 01/22/2025 8:27 PM CDT [facility] Urine Entire urinary tract proper / Unknown Collection / Unknown 01/22/2025 8:19 PM CDT 01/22/2025 8:22 PM CDT [facility] - 01/22/2025 8:27 PM CDT hCG is not usually detected in healthy men and healthy non- women. However, hCG levels in will usually exceed 25 mIU/mL two to three days prior to the first missed menstrual period. us Elian J Mueggenborg DO LAB URINE ORDERABLES Fin al Result [facility] [address] [place] [address] * (ABNORMAL) POC iSTAT (01/22/2025 8:13 PM CDT) iSTAT Cartridge CHEM 8 PEGGY 8:17 PM T [facility] Location [facility] 01/22/2025 8:17 PM T [facility] POC Employee ID [id number] 8:17 PM [facility] Specimen Type PEGGY 01/22/2025 8:17 PM [facility] Anion Gap 20(H) 4 - 16 mmol/L 01/22/2025 8:17 PM [facility] Blood Urea Nitrogen 15 7 - 25 mg/dL 01/22/2025 8:17 PM [facility] Calcium, Ionized 1.22 1.00 - 1.30 mmol/L 01/22/2025 8:17 PM [facility] Carbon Dioxide Level 27 18 - 30 mmol/L 01/22/2025 8:17 PM [facility] Chloride 102 98 - 110 mmol/L 01/22/2025 8:17 PM [facility] Creatinine 0.90 0.50 - 1.10 mg/dL 01/22/2025 8:17 PM [facility] Glucose Level 92 65 - 99 mg/dL 01/22/2025 8:17 PM [facility] Potassium 3.7 3.5 - 5.3 mmol/L 01/22/2025 8:17 PM [facility] Sodium 144 135 - 146 mmol/L 01/22/2025 8:17 PM [facility] Hematocrit 35.0 35.0 - 45.0 % 01/22/2025 8:17 PM [facility] Hemoglobin 11.9 11.7 - 15.5 g/dL 01/22/2025 8:17 PM CDT [facility] Blood 01/22/2025 8:13 PM CDT 01/22/2025 8:18 PM CDT Narrative [facility] - 01/22/2025 8:17 PM CDT INR INTERPRETATION: Suggested INR Therapeutic Range for oral anticoagulant therapy (stably anticoagulated patients) Routine therapy: 2.0 - 3.0 Infarction or mechanical prosthetic valves: 2.5 - 3.5 us Elian Waller DO LAB POINT OF CARE TEST O RDERABLES Final Result [facility] [address] [place] [address] * ECG 12 lead (01/22/2025 8:07 PM CDT) Heart Rate ECG 117 bpm TRACEMASTER RR Interval ECG 512 ms TRACEMASTER Atrial Rate ECG 118 ms TRACEMASTER NV Interval 149 ms TRACEMASTER P Duration 108 ms TRACEMASTER P Horizontal Ecru ECG 5 deg TRACEMASTER P Front Ecru ECG 44 deg TRACEMASTER Q Onset ECG 508 ms TRACEMASTER QRSD Interval 80 ms TRACEMASTER QT Interval 340 ms TRACEMASTER QTcB ECG 475 ms TRACEMASTER QTcF ECG 425 ms TRACEMASTER QRS Horizontal Ecru ECG -40 deg TRACEMASTER QRS Ecru ECG 5 deg TRACEMASTER I-40 Horizontal Ecru ECG 61 deg TRACEMASTER I-40 Front Ecru ECG 85 deg TRACEMASTER T-40 Horizontal Ecru ECG -77 deg TRACEMASTER T-40 Front Ecru ECG -10 deg TRACEMASTER T Horizontal Ecru ECG -15 deg TRACEMASTER T Wave Ecru [address] Horizontal Ecru ECG [address] Front Ecru ECG 49 deg TRACEMASTER 01/22/2025 8:07 PM CDT Impressions TRACEMASTER - 01/25/2025 8:39 PM CDT - OTHERWISE NORMAL ECG - Sinus tachycardia Narrative Procedure Note Deonte Resendez MD - 01/25/2025 IMPRESSION: - OTHERWISE NORMAL ECG - Sinus tachycardia us Elian Wallre DO ECG ORDERABLES Final Re sult TRACEMASTER [...] :1898 (Home) Address: [address] [place] [address] Payer ID:[id number] Type:Not on file Address: [address] [facility] Care Teams Curb Hop Relationship Specialty Start Date End Date Prabhjot Evangelista [address] [place] [address] PCP - General 01/30/25 Provider, No Pcp 01/22/25
--- OUTSIDE RECORDS SUMMARY | 2025-04-22 15:24 | XMS_ITS | Patient Health Record ---
Author Organization [facility] Address [address] [place] [address] Care Team Providers Care Seat Trimmer Name Role Phone LeoneldivyaPrabhjot Primary Care Provider Katiuska Bustamante Unavailable [phone] Rosa Dotson Unavailable [phone] Talisha Cohen Unavailable [phone] Ivana Cotto Unavailable [phone] Isidra Guerra Unavailable [phone] Allergies Allergen (clinical drug ingredient) Drug/Non Drug Allergy documented on EMR Reaction Allergy Type Onset Date Status Anaheim Hives Drug Allergy Active Wellbutrin Hives Drug Allergy Active paliperidone Invega Anaphylaxis Drug Allergy Ac tive buspirone busPIRone HCl hives, swelling Drug Allergy Active sulfamethoxazole / trimethoprim Bactrim DS Hives Drug Allergy Active metformin Metformin Hives Drug Allergy Active Results Component Value Reference Range Notes *Urine Culture, Routine (008 847) Reviewed date:05/25/2024 03:54:12 PM Interpretation: Performing Lab:[facility] [address] [place] [address] [address], [place], [place] [id number], Phone - [phone], Director - Julee Notes/Report: Urine Culture, Routine Final report Result 1 Mixed urogenital qamar Greater than 100,000 colony forming units per mL DHEA-Sulfate (712705) Reviewed date:10/22/2024 05:12:34 PM Interpretation: Performing Lab:[facility] [address] [place] [address] [address], [place] [id number], Phone - [phone], Director - Keli Notes/Report: Test(s) 729198-Gbjoozchcuccgmo LCMS was developed and its performance characteristics determined by [facility]. It has not been cleared or approved by the Food and Drug Administration. DHEA-Sulfate 250.0 110.0-431.7 ug/dL *Progesterone (338737) Reviewed date:10/22/2024 05:12:34 PM Interpretation: Performing Lab:[facility] [address] [place], [place] [address], [place], [place] [id number], Phone - [phone], Director - Keli Notes/Report: Test(s) 335376-Xntexekrknunjaq LCMS was developed and its performance characteristics determined by [facility]. It has not been cleared or approved by the Food and Drug Administration. Progesterone 0.1 Follicular phase 0.1 - 0.9 Luteal phase 1.8 - 23.9 Ovulation phase 0.1 - 12.0 First trimester 11.0 - 44.3 Second trimester 25.4 - 83.3 Third trimester 58.7 - 214.0 Postmenopausal 0.0 - 0.1 Androstenedione LCMS (535322 ) Reviewed date:10/22/2024 05:12:34 PM Interpretation: Performing Lab:[facility] [address] [place] [address] [address], [place], [place] [id number], Phone - [phone], Director - Keli Notes/Report: Test(s) 731118-Lwacqdiuzhjpssp LCMS was developed and its performance characteristics determined by [facility]. It has not been cleared or approved by the Food and Drug Administration. Androstenedione LCMS 95 41-262 ng/dL *FSH and LH (237919) Reviewed date:10/22/2024 05:12:34 PM Interpretation: Performing Lab:[facility] [address] [place] [address] [address], [place], [place] [id number], Phone - [phone], Director - Keli Notes/Report: Test(s) 907092-Eexmxynkbjjpsir LCMS was developed and its performance characteristics [...] date:10/22/2024 05:12:34 PM Interpretation: Performing Lab:[facility] [address], [place], [place] [id number], Phone - [phone], Director - Keli Notes/Report: Test(s) 319145-Whysnwwuiugfupc LCMS was developed and its performance characteristics determined by [facility]. It has not been cleared or approved by the Food and Drug Administration. Vitamin D, 25-Hydroxy 20.6 30.0-100.0 ng/mL Vitamin D deficiency has been defined by the [place] of [employer] and an Endocrine Society practice guideline as a level of serum 25-OH vitamin D less than 20 ng/mL (1,2). The Endocrine Society went on to further define vitamin D insufficiency as a level between 21 and 29 ng/mL (2). 1. IOM ([place] of [employer]). 2010. Dietary reference intakes for calcium and D. [place]: The National Academies Press. 2. Delfino MF, Moise NC, Mindi MANCILLA, et al. Evaluation, treatment, and prevention of vitamin D deficiency: an Endocrine Society clinical practice guideline. JCEM. 2010; 96(7):1911-30. *Testosterone,Free and Total (473723) Reviewed date:10/22/2024 05:12:34 PM Interpretation: Performing Lab:[facility] [address], [place], [place] [address], Phone - [phone], Director - Keli Notes/Report: Test(s) 413147-Hyxxsjftnjsuuii LCMS was developed and its performance characteristics determined by [facility]. It has not been cleared or approved by the Food and Drug Administration. Testosterone 38 13-71 ng/dL Free Testosterone(Direct) 2.7 0.0-4.2 pg/mL *Estradiol (363980) Reviewed date:10/22/2024 05:12:34 PM Interpretation: Performing Lab:[facility] [address], [place], [place] [address], Phone - [phone], Director - Keli Notes/Report: Test(s) 074990-Jfyywpuxgulglxp LCMS was developed and its performance characteristics determined by [facility]. It has not been cleared or approved by the Food and Drug Administration. Estradiol 36.2 Adult Female Range Follicular phase 12.5 - 166.0 Ovulation phase 85.8 - 498.0 Luteal phase 43.8 - 211.0 Postmenopausal <6.0 - 54.7 1st trimester 215.0 - >4300.0 Brittany ECLIA methodology H. pylori Stool Ag, EIA (180 764) Reviewed date:12/26/2024 03:27:09 PM Interpretation: Performing [facility] [address] [place], [place] [id number], Phone - [phone], Director - Keli Notes/Report: Clinical Information:SRC: H. pylori Stool Ag, EIA Negative Negative *Vitamin D, 25-Hydroxy (0819 50) Reviewed date:03/06/2025 11:53:11 AM Interpretation: Performing Lab:[facility] [address] [place], [place] [id number], Phone - [phone], Director - Keli Notes/Report: Vitamin D, 25-Hydroxy 19.2 30.0-100.0 ng/mL Vitamin D deficiency has been defined by the [place] of [employer] and an Endocrine Society practice guideline as a level of serum 25-OH vitamin D less than 20 ng/mL (1,2). The Endocrine Society went on to further define vitamin D insufficiency as a level between 21 and 29 ng/mL (2). 1. IOM ([place] of [place]). 2010. Dietary reference intakes for calcium and D. [place]: The National Academies Press. 2. Delfino MF, Moise [place], Mindi MANCILLA, et al. Evaluation, treatment, and prevention of vitamin D deficiency: an Endocrine Society clinical practice guideline. JCEM. 2010; 96(7):1911-30. Nicotine and Metabolite, Peterson nt (807395) Reviewed date:10/11/2024 09:34:30 AM Interpretation:Negative Performing Lab: Notes/Report: Nicotine <1.0 Cotinine <1.0 [facility] (887267) Reviewed date:10/11/2024 09:35:27 AM Interpretation: Performing Lab: [...] 1 Epigastric pain (R10 .13) Referral Organization [facility] Referring Provider First Name Prabhjot Referring Provider Last Name Tonja Referring Provider [facility] Referred Organization [facility] Referred Provider [facility], Imaging Referred Address [facility] [address] [facility] [address] [facility] ,[place], [place],[address] Referred Provider Specialty Radiology Procedure 1 Abdominal Ultrasound (20533) General Notes Jack Parada 03:43:12 PM >referral faxed to [facility] Referral Priority Routine Referral Appointment Date 08/17/2024 Reason Left shoulder tendin itis, suspected adhesive capsulitis; Ortho referral Diagnosis 1 Shoulder tendinitis, unspecified laterality (M75.80) Referral Organization [facility] Referring Provider First Name Isidra Referring Provider Last Name Mari Referring Provider [facility] Referred Provider [facility], [facility] Referred Provider Specialty Orthopedic S urgery General Notes Rosa Castro 01:31:26 PM >DL and IC attachedAlayna Tresa 12/11/2024 12:25:29 PM >ring to pt__ faxed to [facility]: phone [phone] in [place]. If you have not heard from them [...] LUQ abdominal pain ( R10.12) Referral Organization [facility] Referring Provider First Name Prabhjot Referring Provider Last Name Tonja Referring Provider [facility] Referred Organization [facility] Referred Provider MATIAS SAPP Referred Address [address],[place],[address], Referred Provider Specialty Gastroentero logy General Notes [...] Parada 12/21/2024 04:18:01 PM [facility]/26/2024 07:43:12 AM >referral faxed to [facility], Jack Parada 12/28/2024 03:38:47 PM >Faxed to Dr Matias Sapp at [facility] (in network and Dad [facility] said they could get her in quickly)Karma Rheannon 12/28/2024 04:25:51 PM >Spoke with [facility] to confirm they received referral. She was sending it directly to the patient service coordinator so that they could get her [...] 1 tablet Orally Once a day Not-Taking Chapman 8 MEQ/5ML 300mg tablet 3 times a [...] W/U Status Risk Notes Problem Affective psychosis (921234616) Unspecified mood [affective] disorder (F39) Active confirmed Problem 615549199 Thyroid nodule (E04.1) Active confirmed Problem 582272729 Morbid obesity (E66.01) Active confirmed Problem PCOS (polycystic ovarian syndrome) (E28.2) Active confirmed Problem Mood disorder (41701869) Mood disorder (F39) Active confirmed Problem Neurogenic bladder (617384170) Neurogenic bladder (N31.9) Active confirmed Problem 444174812 Endometriosis (N80.9) Active confirmed Problem Postconcussion syndrome (93846727) Post concussion syndrome (F07.81) Active confirmed Problem 085516943 Hepatic steatosis (K76.0) Active confirmed Problem 81777096 Recurrent major depressive disorder, in partial remission (F33.41) Active confirmed Problem 620832618 Obsessive-compul sive disorder, unspecified type (F42.9) Active confirmed Problem 068578829 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) Active confirmed Problem 722496141 POTS (postural orthostatic tachycardia syndrome) (G90.A) Active [...] 04/01/2025 Encounters Encounter Location Date Provider Diagnosis [facility] [address] [place] [address] 05/01/2024 Katiuska Ray Tuberculosis screeni ng Z11.1 [facility] [address] [place] [address] 05/03/2024 [facility] physical exam Z02.0 [facility] [address] [place] [address] 05/22/2024 Katiuska Ray Dysuria R30.0 [facility] [address] [place] [address] 06/27/2024 Katiuska Ray Recurrent major depressive disorder, in partial remission F33.41 and Neurogenic bladder N31.9 [facility] [address] [place] [address] 08/01/2024 Rosa Dotson Recurrent major depressive disorder, in partial remission F33.41 [facility] [address] [place] [address] 08/14/2024 Prabhjot Evangelista Mood disorder F39 ; Obsessive-compulsive disorder, unspecified type F42.9 ; PCOS (polycystic ovarian syndrome) E28.2 ; Morbid obesity E66.01 and Epigastric pain R10.13 [facility] [address] [place] [address] 10/01/2024 Prabhjot Evangelista Inappropriate lactat ion N64.3 ; Low vitamin D level R79.89 ; Morbid obesity E66.01 ; Recurrent major depressive disorder, in partial remission F33.41 ; Hepatic steatosis K76.0 and POTS (postural orthostatic tachycardia syndrome) G90.A [facility] [address] [place] [address] 10/18/2024 Prabhjot Evangelista Strep pharyngitis J0 2.0 [facility] [address] [place] [address] 11/15/2024 Prabhjot Evangelista PHA Review PHA ; Moo d disorder F39 ; Low vitamin D level R79.89 ; PCOS (polycystic ovarian syndrome) E28.2 ; Morbid obesity E66.01 and POTS (postural orthostatic tachycardia syndrome) G90.A [facility] [address] [place] [address] 12/04/2024 Isidra Guerra Shoulder tendonitis M75.80 [facility] [address] [place] [address] 12/07/2024 Prabhjot Evangelista Nausea and vomiting, unspecified vomiting type R11.2 [facility] [address] [place] [address] 12/10/2024 Isidra Guerra Shoulder tendinitis, unspecified laterality M75.80 [facility] [address] [place] [address] 12/14/2024 Prabhjot Evangelista Mood disorder F39 ; Nausea R11.0 and Nausea and vomiting, unspecified vomiting type R11.2 [facility] [address] [place] [address] 12/19/2024 Prabhjot Evangelista Nausea R11.0 ; LUQ abdominal pain R10.12 ; Morbid obesity E66.01 and Recurrent major depressive disorder, in partial remission F33.41 [facility] [address] [place] [address] 12/26/2024 Prabhjot Evangelista Lower abdominal pain R10.30 ; Epigastric pain R10.13 ; PCOS (polycystic ovarian syndrome) E28.2 ; History of endometriosis Z87.42 and Nausea and vomiting, unspecified vomiting type R11.2 [facility] [address] [place] [address] 01/09/2025 Prabhjot Evangelista PCOS (polycystic ovarian syndrome) E28.2 ; Morbid obesity E66.01 ; Recurrent major depressive disorder, in partial remission F33.41 ; Lower abdominal pain R10.30 ; Endometriosis N80.9 ; Nausea and vomiting, unspecified vomiting type R11.2 and Chronic constipation K59.09 [facility] [address] [place] [address] 02/28/2025 Prabhjot Evangelista Inappropriate lactat ion N64.3 ; Low vitamin D level R79.89 ; Obsessive-compulsive disorder, unspecified type F42.9 ; PCOS (polycystic ovarian syndrome) E28.2 ; Morbid obesity E66.01 ; Recurrent major depressive disorder, in partial remission F33.41 and History of traumatic brain injury Z87.820 [facility] [address] [place] [address] 04/01/2025 Prabhjot Evangelista Mood disorder F39 ; Low vitamin D level R79.89 ; Morbid obesity E66.01 ; Recurrent major depressive disorder, in partial remission F33.41 ; Obsessive-compulsive disorder, unspecified type F42.9 ; History of traumatic brain injury Z87.820 ; Chronic constipation K59.09 and History of endometriosis Z87.42 [facility] [address] [place] [address] 05/04/2024 Prabhjot Evangelista [facility] [address] [place] [address] 07/05/2024 Prabhjot Evangelista Recurrent major depressive disorder, in partial remission F33.41 [facility] [address] [place] [address] 10/18/2024 Prabhjot Evangelista [facility] [address] [place] [address] 10/18/2024 Prabhjot Evangelista [facility] [address] [place] [address] 12/17/2024 Prabhjot Evangelista [facility] [address] [place] [address] 12/31/2024 Katiuska Bustamante [facility] [address] [place] [address] 03/01/2025 Prabhjot Evangelista Assessments Encounter Date Diagnosis (ICD Code) Assessment [...] completed two weeks of [facility]pt care at [facility]. She will f[facility]u w/psych [facility]. No SI at this time 12/04/2024 Shoulder tendonitis (ICD-10 - M75.80) At this time, patient seems to have left shoulder tendinitis and possibly the beginnings of adhesive capsulitis. We discussed that bsapx-ac-ztofku exercises are paramount with either possibility. She may use ibuprofen, plkyg-lu-qejvgm exercises, heat, and ice. If she is [...] continue to do anti-inflammatories , ice, and vxryu-rk-okjkkl exercises. 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 12/14/2024 Nausea and vomiting, [...] - Insured has Financial Responsibility 4 TFOP [id number] Rolo Montiel Child - Insured has Financial Responsibility 7 7 TFOP [id number] Rolo Montiel Child - Insured has Financial [...] brain scan 01/12/24 Suicidal ideation Neurogenic Bladder 09/23 TBI-Dr. Rashmi Florian Psych-Dr. Luisa Bourgeois at [facility] Endometriosis Major recurrent Depression w/Anxiety OCD Atypical Anorexia Nervosa Surgical History Surgery Date(Month/Year) Right fillopian tube removal and endomet riosis clean out 06/01/2024 [employer] Sacral Neuromodulator device 05/29/2024 [employer] Sacral Neuromodulator test devic e 05/15/2024 cleared airway January 2024 Nebo teeth removal 2018 Tonsillectomy 2014 Appendectomy 2006 Hospitalization History Reason Date(Month/Year) Suicidal Ideation, Inpt at [facility] x2wks 06/10/2024 Suicide attempt, overdose on propanolol, ICU, [place] 10/2023 Stomach pain 2020 infection from appendectomy 2006
--- NOTE | 2025-04-22 15:52 | PC.NURSE ---
pt was changed over in green attire and belongings secured in the [facility] shelf [facility], sitter in place
--- NOTE | 2025-04-22 16:46 | ED_ITS ---
HPI - General Adult General Chief complaint: Wound/Laceration Stated complaint: FROM [place] LAC TO FOREHEAD Time Seen by Provider: 04/22/25 16:08 Source: patient, EMS, RN notes reviewed and old records reviewed Mode of arrival: EMS Limitations: no limitations History of Present Illness ED Provider: Pete HPI narrative: Patient is a 25-year-old female presenting to the emergency department from [facility] for laceration to her forehead. Patient stated that she heard voices telling her to bang her head so hit it on the metal corner of a window. She denies any headache, blurred vision, double vision or other visual changes. Denies any nausea or vomiting. Denies any dizziness or lightheadedness. Denies loss of consciousness. Unsure last Tdap. MD complaint: laceration Related Data Allergies Allergy/AdvReac Type Severity Reaction Status Date / Time buspirone (From BuSpar) Allergy Unknown Verified 04/22/25 15:04 fish derived (fish) Allergy Unknown Verified 04/22/25 15:04 sulfamethoxazole (From Allergy Unknown Verified 04/22/25 15:04 Bactrim) trimethoprim (From Bactrim) Allergy Unknown Verified 04/22/25 15:04 Review of Systems 2 Review of Systems: as per hpi Yes all other systems are reviewed and are negative Constitutional: Constitutional: Reports as per HPI [facility] Past Medical History Medical History Neurogenic bladder TBI (traumatic brain injury) Bipolar 1 disorder Social History Social History Patient Tobacco Use Status: Never used Tobacco Smoked in Last 30 Days: No Use of substances other than those prescribed or required for medical reasons: No Advance Directives: Yes Advance Directives Information Provided: Yes Advance Directives on File: No Do you have a plan to hurt others: No Plan Physical Exam ED Vital Signs: Vital Signs - 24 hr 04/22/25 15:01 Temperature 97.9 F Pulse Rate 97 Respiratory Rate 20 Blood Pressure 119/71 Pulse Oximetry 98 Oxygen Delivery Method Room Air BMI result Body Mass Index 49.4 Vital signs have been reviewed and appear to be correct. Blood pressure normal. Heart rate normal. Respiratory rate normal. Temperature normal. Oxygen saturation normal. Const General: cooperative, healthy appearing and no acute distress Orientation/consciousness: oriented to person, oriented to place, oriented to time and patient oriented x3 Limitations: no limitations HENMT Head: Yes normocephalic Head images: 2 1. 1.5cm superficial linear laceration just inferior to hairline without active bleeding Ears: external ears normal General nose exam: Normal external nose present Face and sinus: Yes face symmetric Mouth: oropharynx normal and moist mucous membranes Throat: Yes uvula midline Eyes Pupils: Equal, round and reactive pupils present Neck Neck: Yes normal visual inspection and Yes supple Resp Effort & Inspection: normal respiratory effort and able to speak in complete sentences Auscultation: clear to auscultation bilaterally Cardio Rate: regular rate Rhythm: regular rhythm Heart sounds: S1 normal heart sound present and S2 normal heart sound present GI Palpation (GI): Soft to palpation and nontender Auscultation: normoactive bowel sounds General: Yes no CVA tenderness Back/Spine/Pelvis Back: no CVA tenderness Skin General skin exam: elasticity normal and turgor normal Neuro General: oriented to person, oriented to place, oriented to time, patient oriented x3, tone normal, moves all extremities, Normal light touch and pain sensation, no focal motor deficits, CN's II-XI intact bilaterally and deep tendon reflexes 2+ bilaterally Cranial nerves: Yes Equal, round and reactive pupils present Cognition (Neuro): normal cognition Motor exam (neuro): 5/5 motor strength present throughout, Normal motor muscle tone present throughout and Motor abnormalities not present Extrem General: Yes full ROM, Yes no pedal edema and Yes no calf tenderness Psych Mental Status: mental status grossly normal Affect: normal affect Medications Administered Discontinued Medications Generic Name Dose Route Start Last Admin Trade Name Freq PRN Reason Stop Dose Admin Diphtheria/Tetanus/Acell Pertussis 0.5 ml 04/22/25 16:48 04/22/25 17:20 Diphth,Pertus(Acell),Tet Adult 0.5 Ml Syringe IM 04/22/25 16:49 0.5 ml .ONCE ONE Administration Lidocaine HCl 5 ml 04/22/25 16:47 04/22/25 17:21 Lidocaine Hcl 1 % Mpf 5 Ml Vial INFILTRATI 04/22/25 16:48 5 ml ONCE ONE Administration Procedures Laceration Laceration 1: Site: face Size (cm): 1.5 Description: linear Depth: simple, single layer Local Anesthetic: lidocaine 1% Amount of anesthesia used (mL): 1 Pre-repair: wound explored, irrigated extensively and deep structures intact Skin layer closed with: other (prolene) Size (cm): 6-0 Number of sutures: 6 Technique: simple, interrupted Medical Decision Making Medical Decision Making [facility] Narrative: Patient is a 25-year-old female presenting to the emergency department from [facility] for laceration to her forehead. On exam patient is awake, A+Ox3, VS WNL, afebrile, normal neurological exam without focal deficits, physical exam findings as above. Given reported symptoms and physical exam findings, initial differential includes but is not limited to forehead laceration. CT imaging not indicated based on NEXUS CT head instrument. Laceration repaired as per procedure note. Wound care instructions and return precautions discussed at bedside. Tdap updated. Patient cleared for return to [facility]. Differential Diagnosis Differential Diagnoses: The differential diagnosis associated with the presentation includes As per [facility] Admission/Observation Consideration of admission/observation: Escalation of care including admission/observation considered Patient would have been admitted to the hospital had their clinical presentation warranted hospital admission. External Record Review External record reviewed: Inpatient record, Office record and Outpatient record Discharge Plan Discharge Clinical Impression: Forehead laceration Qualifiers: Encounter type: initial encounter Qualified Code(s): S01.81XA - Laceration without foreign body of other part of head, initial encounter Patient Disposition: Xfer Psychiatric Hosp Transfer Details: return to [facility] Instructions: Care For Your Stitches (DC), Laceration (DC), Stitches Removal (ED) Additional Instructions: You have been evaluated in the emergency department today for a laceration to your forehead. Your laceration was repaired in the emergency department with 6 sutures. Please keep the area surrounding the laceration clean and dry and keep dressing in place for the next 24 hours. After that please change the dressing and assess the wound daily. Do not submerge the wound in water until the stitches has been removed and the wound has fully healed (no washing dishes, swimming, hot tubs, etc. and ESPECIALLY no outdoor water). After the first 24 hours you can shower, and gently pat the stitches dry immediately after. Keep the area out of direct sunlight for the next 6 months to help prevent scarring. You should have the sutures removed in 5-7 days. If you develop fever, redness, swelling at the site of your laceration, or thick yellow drainage please come back to the ER for a wound check. Print Language: Portuguese
[2025-04-22] MEDS: Diphth,Pertus(ACell),Tet Adult 0.5 ML SYRINGE IM (17:20)
[2025-04-22] MEDS: Lidocaine HCl 1 % MPF 5 ML VIAL INFILTRATI (17:21)
--- NOTE | 2025-04-22 18:02 | PC.NURSE ---
report given to Niles snowden at [facility]
--- NOTE | 2025-04-22 19:17 | PC.NURSE ---
belongings bag jimmy to patient while being loaded up by EMS, placed on back of [facility]
[2025-04-22 19:18] VITALS: BP 116/75; PULSE 92; RESP 16; TEMP 36.6; O2SAT 99
== END 2025-04-22 19:20 ==
PROVIDERS: Emergency Provider Emergency Medicine
DX: S01.81XA Laceration without foreign body of other part of head, initial encounter (principal); W22.8XXA Striking against or struck by other objects, initial encounter; Y93.89 Activity, other specified; Y92.9 Unspecified place or not applicable; Y99.9 Unspecified external cause status; Z23 Encounter for immunization
CPT/HCPCS: 12011; 90471; 90715; 99284; 99285; J2003

== ENCOUNTER 2025-05-04 14:54 | Emergency (ER) | payer SELFPAY ==
[2025-05-04 15:01] VITALS: BP 125/71; PULSE 97; RESP 18; TEMP 36.6; O2SAT 98
[2025-05-04 15:03] VITALS: BP 132/78; PULSE 80; BMI 49.7
--- OUTSIDE RECORDS SUMMARY | 2025-05-04 15:27 | XMS_ITS | Clinical Summary ---
Author Organization [address] 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 04/19/2025 Lab Requisition [facility] [address] [place] [address] Jarek Ratliff NP from Last 3 Months [...] Cervical Cancer Screening: P ap Smear 2023 Depression Screening 08/22/2024 HIV Screening 04/19/2025 Hepatitis C Screening 04/19/2025 Social Influencers of Health Screening 04/19/2025 COVID-19 Vaccine (1 - 2023-2 5 season) 2025 Influenza Vaccine (#1) 2025 Cholesterol Screening (Lipid [...] Procedure Name Priority Date/Time Associated Diagnosis Comments THYROID STIMULATING HORMONE Routine 04/29/2025 7:00 AM EDT Other penitentiary (current) drug therapy LITHIUM LEVEL Routine 04/19/2025 7:00 AM EDT 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 LIPID PANEL WITH REFLEX TO DIRECT LDL Routine 04/19/2025 7:00 AM EDT 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 COMPREHENSIVE METABOLIC PANEL Routine 04/19/2025 7:00 AM EDT Other penitentiary (current) drug therapy from Last 3 Months Results * Thyroid stimulating hormone (04/29/2025 7:00 AM EDT) TSH 1.84 0.40 - 4.00 mcIU/mL LAB CHEMISTRY METHOD 04/29/2025 12:37 PM EDT [facility] Blood Venous blood specimen / Unknown Venipuncture / Unknown 04/29/2025 7:00 AM EDT 04/29/2025 10:46 AM EDT us Lidia Azul RIP MACHINE OPERATOR LAB BLOOD ORDERABLES Final Result [facility] [address] [place] [address], [place] [phone] * (ABNORMAL) Lipid panel with reflex to direct LDL (04/19/2025 7:00 AM EDT) Cholesterol 180 0 - 200 mg/dL LAB CHEMISTRY METHOD 04/19/2025 10:53 AM [facility] Triglycerides 133 0 - 150 mg/dL LAB CHEMISTRY METHOD 04/19/2025 10:53 AM [facility] HDL 34(L) >=40 mg/dL LAB CHEMISTRY METHOD 04/19/2025 10:53 AM [facility] LDL Calculated 119(H) 0 - 100 mg/dL LAB CHEMISTRY METHOD 04/19/2025 10:53 AM [facility] Comment:Estimated LDL Calcul ated using equation: Total cholesterol - HDL cholesterol - (Triglycerides/5) VLDL Cholesterol Rodrigo 26.6 mg/dL LAB CHEMISTRY METHOD 04/19/2025 10:53 AM [facility] Non HDL Chol. (LDL+VLDL) 146(H) <145 mg/dL LAB CHEMISTRY METHOD 04/19/2025 10:53 AM [facility] Chol/HDL Ratio 5.3(H) 0.0 - 4.4 LAB CHEMISTRY METHOD 04/19/2025 10:53 AM [facility] Blood Venous blood specimen / Unknown Venipuncture / Unknown 04/19/2025 7:00 AM EDT 04/19/2025 9:21 AM EDT Jarek Ratliff NP LAB BLOOD ORDERABLES Final Resu lt Performing Organization Address City/[facility]/ZIP Co de Phone Number [facility] [address] [place] [address], [place] [phone] * [place] level (04/19/2025 7:00 AM EDT) [place] Level 0.9 0.6 - 1.2 mEq/L LAB CHEMISTRY METHOD 04/19/2025 10:53 AM EDT [facility] Blood Venous blood specimen / Unknown Venipuncture / Unknown 04/19/2025 7:00 AM EDT 04/19/2025 9:21 AM EDT Jarek Ratliff NP LAB BLOOD ORDERABLES Final Resu lt Performing Organization Address [facility]/ZIP Co de Phone Number [facility] [address] [place] [address], [place] [phone] * (ABNORMAL) Comprehensive metabolic panel (04/19/2025 7:00 AM EDT) Pathologist [facility] [place] Sodium 140 133 - 145 mmol/L LAB CHEMISTRY METHOD 04/19/2025 10:53 AM [facility] Potassium 4.1 3.5 - 5.5 mmol/L LAB CHEMISTRY METHOD 04/19/2025 10:53 AM EDT [facility] Chloride 108 96 - 110 mmol/L LAB CHEMISTRY METHOD 04/19/2025 10:53 AM EDT [facility] CO2 30 21 - 32 mmol/L LAB CHEMISTRY METHOD 04/19/2025 10:53 AM EDT [facility] Anion Gap 2(L) 3 - 11 LAB CHE[facility]STRY METHOD [facility]/19[facility]25 [facility] Glucose 69(L) 70 - 100 mg/dL LAB CHEMISTRY METHOD 04/19/2025 10:53 AM [facility] BUN 11 5 - 25 mg/dL LAB CHEMISTRY METHOD 04/19/2025 10:53 AM [facility] Creatinine 0.82 0.50 - 1.10 mg/dL LAB CHEMISTRY METHOD 04/19/2025 10:53 AM [facility] eGFR 103 >=60 mL/min/1. 73m2 LAB CHEMISTRY METHOD 04/19/2025 10:53 AM [facility] Comment:Calculation based on the Chronic Kidney Disease Epidemiology Collaboration (CKD-EPI) equation refit without adjustment for race. BUN/Creatinine Ratio 13.4 LAB CHEMISTRY METHOD 04/19/2025 10:53 AM [facility] Calcium 9.3 8.5 - 10.5 mg/dL LAB CHEMISTRY METHOD 04/19/2025 10:53 AM [facility] AST (SGOT) 15 10 - 42 unit/L LAB CHEMISTRY METHOD 04/19/2025 10:53 AM [facility] ALT (SGPT) 19 10 - 60 unit/L LAB CHEMISTRY METHOD 04/19/2025 10:53 AM [facility] Alkaline Phosphatase 78 42 - 121 unit/L LAB CHEMISTRY METHOD 04/19/2025 10:53 AM [facility] Total Protein 6.2 6.0 - 8.0 g/dL LAB CHEMISTRY METHOD 04/19/2025 10:53 AM [facility] Albumin 3.7 3.2 - 5.0 g/dL LAB CHEMISTRY METHOD 04/19/2025 10:53 AM [facility] Total Bilirubin 0.5 0.0 - 1.4 mg/dL LAB CHEMISTRY METHOD 04/19/2025 10:53 AM [facility] Blood Venous blood specimen / Unknown Venipuncture / Unknown 04/19/2025 7:00 AM EDT 04/19/2025 9:21 AM EDT us Jarek Ratliff CNC MANAGER LAB BLOOD ORDERABLES Final Resu lt [facility] [address] [place] [address], from Last 3 Months Care Teams Dock Supervisor Relationship Specialty Start Date End Date Jarek Ratliff NP [facility] [place] [address] PCP - General 04/19/25
--- OUTSIDE RECORDS SUMMARY | 2025-05-04 15:27 | XMS_ITS | Encounter Summary ---
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 documented in this encounter Results * Thyroid stimulating hormone (04/29/2025 7:00 AM EDT) TSH 1.84 0.40 - 4.00 mcIU/mL LAB CHEMISTRY METHOD 04/29/2025 12:37 PM EDT [facility] Blood Venous blood specimen / Unknown Venipuncture / Unknown 04/29/2025 7:00 AM EDT 04/29/2025 10:46 AM EDT us Lidia CARBAJAL LAB BLOOD ORDERABLES Final Result [facility] [place] [facility] [address] [place] [address], documented in this encounter Visit Diagnoses Diagnosis Other longterm (current) drug therapy documented in this encounter Care Teams Steel Fixer Relationship Specialty Start Date End Date Jarek Ratliff NP [facility] [place] [address] PCP - General 04/19/25 documented as of this encounter
--- OUTSIDE RECORDS SUMMARY | 2025-05-04 15:27 | XMS_ITS | Encounter Summary ---
Author Organization [email or web address] [facility] Address [address] [place] [address] Care Team Providers Care Specialty Transformer Assembler Name Role Phone Jarek Ratliff NP Primary Care Provider [phone] Encounter Details Date Type Department Care Team (Late st Contact Info) Description 04/19/2025 Lab Requisition [facility] - Main Lab [address] [facility] [address] [place] [address] Jarek Ratliff NP [facility] [place] [address] Social History Tobacco Use Types Packs/Day Years [...] on filedocumented in this encounter Care Teams Specialty Transformer Assembler Relationship Specialty Start Date End Date Jarek Ratliff NP [address] [place] [id number] PCP - General 04/19/25 documented as of this encounter
--- OUTSIDE RECORDS SUMMARY | 2025-05-04 15:27 | XMS_ITS | Encounter Summary ---
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 (current) drug therapy Social History Tobacco Use [...] LDL Routine 04/19/2025 7:00 AM EDT Other [facility] (current) drug therapy LITHIUM LEVEL Routine 04/19/2025 7:00 AM EDT Other [facility] (current) drug therapy COMPREHENSIVE METABOLIC PANEL Routine 04/19/2025 7:00 AM EDT Other long term care phlebotomist (current) drug therapy documented in this encounter Results * [place] level (04/19/2025 7:00 AM EDT) Freder[place] Level 0.9 0.6 - 1.2 mEq/L LAB CHEMISTRY METHOD 04/19/2025 10:53 AM EDT [facility] Blood Venous blood specimen / Unknown Venipuncture / Unknown 04/19/2025 7:00 AM EDT 04/19/2025 9:21 AM EDT us Jarek Ratliff NP LAB BLOOD ORDERABLES Final Resu lt [facility] [address] [place] [address], [place] [phone] * (ABNORMAL) Lipid panel with reflex to direct LDL (04/19/2025 7:00 AM EDT) Cholesterol 180 0 - 200 mg/dL LAB CHEMISTRY METHOD 04/19/2025 10:53 AM EDT [facility] Triglycerides 133 0 - 150 mg/dL LAB CHEMISTRY METHOD 04/19/2025 10:53 AM [facility] HDL 34(L) >=40 mg/dL LAB CHEMISTRY METHOD 04/19/2025 10:53 AM EDT [facility] LDL Calculated 119(H) 0 - 100 mg/dL LAB CHEMISTRY METHOD 04/19/2025 10:53 AM EDT [facility] Comment:Estimated LDL Calcul ated using equation: Total cholesterol - HDL cholesterol - (Triglycerides/5) VLDL Cholesterol Rodrigo 26.6 mg/dL LAB CHEMISTRY METHOD 04/19/2025 10:53 AM [facility] Non HDL Chol. (LDL+VLDL) 146(H) <145 mg/dL LAB CHEMISTRY METHOD 04/19/2025 10:53 AM T [facility] Chol/HDL Ratio 5.3(H) 0.0 - 4.4 LAB CHEMISTRY METHOD 04/19/2025 10:53 AM [facility] Blood Venous blood specimen / Unknown Venipuncture / Unknown 04/19/2025 7:00 AM EDT 04/19/2025 9:21 AM EDT us Jarek Gaudencio NETWORK ENGINEER ADMINISTRATOR LAB BLOOD ORDERABLES Final Resu lt [facility] [address] [place] [address], * (ABNORMAL) Comprehensive metabolic panel (04/19/2025 7:00 AM EDT) Sodium 140 133 - 145 mmol/L LAB CHEMISTRY METHOD 04/19/2025 10:53 AM [facility] Potassium 4.1 3.5 - 5.5 mmol/L LAB CHEMISTRY METHOD 04/19/2025 10:53 AM [facility] Chloride 108 96 - 110 mmol/L LAB CHEMISTRY METHOD 04/19/2025 10:53 AM [facility] CO2 30 21 - 32 mmol/L LAB CHEMISTRY METHOD 04/19/2025 10:53 AM [facility] Anion Gap 2(L) 3 - 11 LAB CHEMISTRY METHOD 04/19/2025 10:53 AM [facility] Glucose 69(L) 70 - 100 mg/dL LAB CHEMISTRY METHOD 04/19/2025 10:53 AM [facility] BUN 11 5 - 25 mg/dL LAB CHEMISTRY METHOD 04/19/2025 10:53 AM [facility] Creatinine 0.82 0.50 - 1.10 mg/dL LAB CHEMISTRY METHOD 04/19/2025 10:53 AM [facility] eGFR 103 >=60 mL/min/1. 73m2 LAB CHEMISTRY METHOD 04/19/2025 10:53 AM [facility] Comment:Calculation based on the Chronic Kidney Disease Epidemiology Collaboration (CKD-EPI) equation refit without adjustment for race. BUN/Creatinine Ratio 13.4 LAB CHEMISTRY METHOD 04/19/2025 10:53 AM [facility] Calcium 9.3 8.5 - 10.5 mg/dL LAB CHEMISTRY METHOD 04/19/2025 10:53 AM EDT [facility] AST (SGOT) 15 10 - 42 unit/L LAB CHEMISTRY METHOD 04/19/2025 10:53 AM T [facility] ALT (SGPT) 19 10 - 60 unit/L LAB CHEMISTRY METHOD 04/19/2025 10:53 AM [facility] Alkaline Phosphatase 78 42 - 121 unit/L LAB CHEMISTRY METHOD 04/19/2025 10:53 AM EDT [facility] Total Protein 6.2 6.0 - 8.0 g/dL LAB CHEMISTRY METHOD 04/19/2025 10:53 AM [facility] Albumin 3.7 3.2 - 5.0 g/dL LAB CHEMISTRY METHOD 04/19/2025 10:53 AM [facility] Total Bilirubin 0.5 0.0 - 1.4 mg/dL LAB CHEMISTRY METHOD 04/19/2025 10:53 AM [facility] Blood Venous blood specimen / Unknown Venipuncture / Unknown 04/19/2025 7:00 AM EDT 04/19/2025 9:21 AM EDT us Jarek Ratliff NP LAB BLOOD ORDERABLES Final Resu lt [facility] [address] [place] [address], documented in this encounter Visit Diagnoses Diagnosis Other [facility] (current) drug therapy documented in this encounter Care Teams Electronic Field Service Engineer Relationship Specialty Start Date End Date Jarek Ratliff NP [address] [place] [phone] PCP - General 04/19/25 documented as of this encounter
--- OUTSIDE RECORDS SUMMARY | 2025-05-04 15:27 | XMS_ITS | Encounter Summary ---
Author Organization [employer] Address [address] [place] [address] Care Team Providers Care Traffic Sign Supervisor Name Role Phone Jarek Ratliff NP Primary Care Provider [phone] Encounter Details Date Type Department Care Team (Late st Contact Info) Description 04/29/2025 Lab Requisition [facility] - Main Lab [address] [facility] [place] [address] Lidia Azul, [address] [phone] Social History Tobacco Use Types Packs/Day Years [...] on filedocumented in this encounter Care Teams Traffic Sign Supervisor Relationship Specialty Start Date End Date Jarek Ratliff NP [facility] [place] [address] PCP - General 04/19/25 documented as of this encounter
--- NOTE | 2025-05-04 16:38 | ED.HEATRA ---
HPI - Head Injury General Chief complaint: Head Injury Stated complaint: LAC ON FOREHEAD Time Seen by Provider: 05/04/25 16:04 History of Present Illness HPI Narrative: Patient is a 25-year-old female from [facility]. Patient claims she had an autistic outburst last night hit her head against the wall suffer reopening of a laceration that was closed. No focal weakness patient had sutures in place in the same wound prior. Just had the stitches removed last Tuesday. The wound reopened upon hitting her head last night. Patient came in for further evaluation. Denies any nausea vomiting no focal weakness. No fever no chills. No chest pain or shortness of breath no diaphoresis. Patient is from home. Related Data Allergies Allergy/AdvReac Type Severity Reaction Status Date / Time buspirone (From BuSpar) Allergy Unknown Verified 05/04/25 15:12 fish derived (fish) Allergy Unknown Verified 05/04/25 15:12 sulfamethoxazole (From Allergy Unknown Verified 05/04/25 15:12 Bactrim) trimethoprim (From Bactrim) Allergy Unknown Verified 05/04/25 15:12 Review of Systems Review of Systems: No fever no chills no chest pain or shortness of breath no focal weakness. Patient claims her tetanus is up-to-date [facility] Past Medical History Attestation statement: The following information was validated with the patient. Medical History Neurogenic bladder TBI (traumatic brain injury) Bipolar 1 disorder Social History Social History Patient Tobacco Use Status: Never used Tobacco Smoked in Last 30 Days: No Use of substances other than those prescribed or required for medical reasons: No Advance Directives: No Advance Directives Information Provided: No Do you have a plan to hurt others: No Plan Patient : No Physical Exam Exam: Exam: Appearance: Alert. Oriented X3. No acute distress. Eyes: Pupils equal, round and reactive to light. ENT: Pharynx normal. Neck: Normal inspection. Neck supple. No lymph nodes noted. No crepitus CVS: Normal heart rate and rhythm. Pulses normal. Normal S1 and S2 Respiratory: No respiratory distress. Breath sounds normal. No Wheezing. No rales Abdomen: Soft and nontender. No rigidity. No distention. good BS x4 Skin: A small 3 cm laceration over the forehead in an area that had a previous suture reopened. Bleeding is controlled. Extremities: No lower extremity edema. Neurovascular intact to all extremities. No Lacerations. No Rash Neuro: Oriented X 3. No motor deficit. No sensory deficit. Moving all extermities. No slurred speech Vital Signs: Vital Signs: Last Vital Signs Temp 97.9 F 05/04/25 15:01 Pulse 97 05/04/25 15:01 Resp 18 05/04/25 15:01 BP 125/71 05/04/25 15:01 Pulse Ox 98 05/04/25 15:01 O2 Del Method Room Air 05/04/25 15:01 BMI result Body Mass Index 49.7 Medical Decision Making Medical Decision Making [facility] Narrative: Patient patient had a wound that we opened. It is over the forehead on a 25-year-old lady. We cleaned the wound copiously. Will elect to try to close it for better cosmetic results as much as possible. There is no nausea no vomiting no focal weakness patient is not on blood thinners. [place] at this time patient does not warrant a CT scan of the head. Her tetanus status is up-to-date per her. She is in stable condition. She is now calm Differential Diagnosis Differential Diagnoses: The differential diagnosis associated with the presentation includes Head injury, intracranial bleed, fracture Admission/Observation Consideration of admission/observation: Escalation of care including admission/observation considered No evidence for bleed. Not on blood thinners. No need for CT scan at this time. No need to admit. Chronic Conditions Autism Social Determinants Patient?s care significantly limited by Social Determinants of Health including: Problems related to primary support group Procedures Laceration forehead: Size (cm): 3 Description: linear Skin layer closed with: skin adhesive Discharge Plan Discharge Clinical Impression: Closed head injury, Laceration of scalp Patient Disposition: Home, Self-Care Instructions: Head Injury (DC), Skin Adhesive Care (ED) Referrals: Physician,Usama Yuan [Primary Care Provider, Medical] - 05/09/25 Print Language: Lithuanian
--- NOTE | 2025-05-04 17:15 | PC.NURSE ---
Pt's head wound cleaned and Dermabond applied by MD; pt tolerated well; pt to be DC'd back to [facility] via S
--- NOTE | 2025-05-04 17:20 | PC.NURSE ---
Report called to [facility] for return
--- NOTE | 2025-05-04 17:35 | PC.NURSE ---
Bedside report gv to BLS
[2025-05-04 17:38] VITALS: BP 125/71; PULSE 97; RESP 18; TEMP 36.6; O2SAT 98
== END 2025-05-04 17:39 | disposition home or self-care (01) ==
PROVIDERS: Emergency Provider Emergency Medicine Emergency Medical Services
DX: S01.81XA Laceration without foreign body of other part of head, initial encounter (principal); X58.XXXA Exposure to other specified factors, initial encounter; Y93.9 Activity, unspecified; Y92.9 Unspecified place or not applicable; Y99.9 Unspecified external cause status
CPT/HCPCS: 12002; 99284

== ENCOUNTER 2025-05-06 12:49 | Emergency (ER) | payer MEDICAID, SELFPAY ==
--- OUTSIDE RECORDS SUMMARY | 2024-07-28 05:00 | XMS_ITS ---
Author Organization [facility] Address [address] [place] [phone] Care Team Providers Care Pharmacy Informatics Specialist Name Role Phone Migration, Provider Unavailable Unavailable REASON FOR VISIT EMR-Erich Encounters Encounter Location Date Provider Diagnosis [facility] [address] [place] [phone] 07/28/2024 Provider Migration Plan Of Treatment No Information Progress Notes * SOLA AmilcarAngelinaOB:2000 (25 yo F)Acc No.[id number]:07/28/2024 Patient: Fausto VALEROelyn :2000 A ge:24 Y S ex:Female Phone: Address:[address] [place] [address], [place], [address] Subjective: * Chief Complaints: * E MR-Erich * Medical History: * Surgical History: * Hospitalization/Major Diagno stic Procedure: * Medications: Objective: * Vitals: * Physical Examination: Assessment: Plan: * Treatment: * Procedure Codes: * * Date:
--- OUTSIDE RECORDS SUMMARY | 2024-07-29 05:00 | XMS_ITS ---
Author Organization [facility] Address [address] [place] [phone] Care Team Providers Care Liquid Chlorine Operator Name Role Phone Migration, Provider Unavailable Unavailable REASON FOR VISIT EMR-Erich Encounters Encounter Location Date Provider Diagnosis [facility] [address] [place] [phone] 07/29/2024 Provider Migration Plan Of Treatment No Information Progress Notes * SOLA AmilcarAngelinaOB:2000 (25 yo F)Acc No.[id number]:07/29/2024 Patient: Fausto VALEROelyn :2000 A ge:24 Y S ex:Female Phone: Address:[address] [place] [address], [place], [address] Subjective: * Chief Complaints: * E MR-Erich * Medical History: * Surgical History: * Hospitalization/Major Diagno stic Procedure: * Medications: Objective: * Vitals: * Physical Examination: Assessment: Plan: * Treatment: * Procedure Codes: * * Date:
--- OUTSIDE RECORDS SUMMARY | 2024-12-31 11:30 | XMS_ITS ---
Author Organization [facility] Address [address] [place] [address] Care Team Providers Care Lay Out Inspector Name Role Phone Prabhjot Evangelista MD Primary Care Provider Unavail able ARNULFOPRISCILLA Unavailable [phone] Allergies Allergen (clinical drug ingredient) Drug/Non Drug Allergy documented on EMR Reaction Allergy Type Onset Date Status sulfamethoxazole / trimethoprim Bactrim Unknown Drug Allergy Active Fish derivative (substance) Fish-derived Products Unknown Drug Allergy Active metformin Metformin Unknown Drug Allergy Active REASON FOR VISIT [facility] ER FU pelvic pain - endometriosis Medications Medication SIG (Take, Route, Frequency, Duration) Notes Start Date End Date Status QUEtiapine Fumarate ER 150 MG Oral for 14 Days Not-Taking lamoTRIgine 25 MG Oral for 14 Days Not-Taking Keflex Not-Taking traZODone HCl 50 MG Oral for 14 Days Not-Taking Naltrexone Not-Takin g Nextstellis 3-14.2 MG 1 tablet Orally On ce a day for 84 days 06/26/2024 Not-Taking SEROquel 25 MG 1 tablet at bedtime Orally Once a day Not-Taking Prazosin HCl 1 MG 1 capsule at bedtime Orally Once a day Not-Taking Nortriptyline HCl 25 MG 1 capsule at bed time Orally Once a day for 30 days 12/31/2024 Active Abilify 10 MG 1 tablet Orally Once a day Not-Taking Sertraline HCl 100 MG Oral for 14 Days Not-Taking Vistaril Not-Taking Metoprolol-HCTZ ER N ot-Taking Benztropine Mesylate 1 MG 1 tablet Orall y Once a day Not-Taking ChlorproMAZINE Not-T aking Myfembree 40-1-0.5 MG 1 tablet Orally On ce a day for 30 days 12/31/2024 Active hydrOXYzine HCl 10 MG 1 tablet as needed Orally Once a day Not-Taking diazePAM 10 MG 1 tablet as needed Orally Once a day Not-Taking guanFACINE HCl 1 MG 1 tablet at bedtime Orally Once a day Not-Taking clomiPRAMINE HCl 25 MG 1 capsule Orally Twice a day Not-Taking Semaglutide Not-Taki ng Polyethylene Glycol 3350 17 GM Oral for 30 Days Active Omer Carbonate 300 MG 1 capsule at be dtime Orally Once a day Not-Taking Senna 8.6 MG Oral for 60 Days Active Pantoprazole Sodium 40 MG Oral for 30 Days Active Dicyclomine HCl 20 MG Oral for 10 Days Active Drospirenone-Ethinyl Estradiol 3-0.02 MG 1 tablet Orally Once a day for 90 days 11/30/2024 Active Cyclobenzaprine HCl 5 MG Oral for 15 Days Active Celecoxib 100 MG Oral for 15 Days Active Problems Problem Type SNOMED Code ICD Code Onset Dates Problem Status W/U Status Risk Notes Problem Endometriosis of other pelvic peritoneum unsp (N80.399) Active confirmed Vital Signs Blood pressure systolic 110 mm Hg 01/01/20 25 Blood pressure diastolic 82 mm Hg 025 Height 65 in 12/31/2024 Weight 284 lbs 12/31/2024 BMI 47.25 kg/m2 12/31/2024 Height-cm 165.1 cm 12/31/2024 Weight-kg 128.82 kg 12/31/2024 Encounters Encounter Location Date Provider Diagnosis [facility] [address] [place] [address] 12/31/2024 PRISCILLA ARREDONDO Nausea with vomiting , unspecified R11.2 ; Endometriosis of other pelvic peritoneum unsp N80.399 and Pelvic and perineal pain R10.2 Assessments Encounter Date Diagnosis (ICD Code) Assessment Notes Treatment Notes Treatment Clinical Notes Section Notes 12/31/2024 Nausea with vomiting, unspecified (ICD-10 - R11.2) 12/31/2024 Endometriosis of other pelvic peritoneum unsp (ICD-10 - N80.399) Increased pain on OCPs, CT normal, close GI follow up. OCPs still with pain. Reviewed endo and other diagnoses, reviewed options for hormones, GNRH or IUD. Reviewed r/b/a and possibility of failure or inadequate improvement. s/p surgical management. After discussion, she desires to trial GNRH and sent today, will also trial amitriptyline. All questions answered. Close Outpatient FU. Outside notes, labs and CT reports reviewed today. 12/31/2024 Pelvic and perineal pain (ICD-10 - R10.2) Plan Of Treatment Medication Medication Name Sig Start Date Stop Date Notes Nortriptyline HCl 25 MG 1 capsule at bed time Orally Once a day for 30 days 12/31/2024 Myfembree 40-1-0.5 MG 1 tablet Orally On ce a day for 30 days 12/31/2024 Treatment Notes Assessment Notes Endometriosis of other pelvi c peritoneum unsp Increased pain on OCPs, CT normal, close GI follow up. OCPs still with pain. Reviewed endo and other diagnoses, reviewed options for hormones, GNRH or IUD. Reviewed r/b/a and possibility of failure or inadequate improvement. s/p surgical management. After discussion, she desires to trial GNRH and sent today, will also trial amitriptyline. All questions answered. Close Outpatient FU. Outside notes, labs and CT reports reviewed today. Next Appt Details Follow Up: 3 wks fu sympsoms , Reason: Provider Name:PRISCILLA Desai, 09/11/2025 09:15:00 AM, [address] [facility] [address], [place], [address], Progress Notes * Abida SELBY EDOB: 2 (24 yo F)Acc No.[id number]:12/31/2024 Patient: Tab Abida JOLLY Provider: Jessy Arredondo M.D. :2000 A ge:24 Y S ex:Female Date:12/31/2024 Address:[address] [facility] [phone] Pcp:Prabhjot Evangelista MD Subjective: * Chief Complaints: * H HS ER FU pelvic pain - endometriosis * HPI: G ynecologic conditions: 24 yo with endometriosis and complex medical history presents for ER follow up after intense mid abdominal pain last week. Discharged without pathology. LMP 5/5, abdominal pain daily, not worsened by periods. Hx of morbid obesity, CPP, TBI, neurogenic bladder (with stimulator), PCOS, anxiety presents for menses FU. Pt states OCP started 4 months ago is still allowing for a lot of light bleeding. having period for 3 weeks at time with one two two weeks in between. Having lots of cramping and endo flare ups she thinks. She had 2-3 weeks of bleeding in October followed by two weeks of spotting. Ready to try a different medication. She is diagnosed with POTS and has a very high resting heart rate - She was in the hospital for severely high BP in July - High pulse rate, states they told it was due to POTS. She has started semaglutide for weight loss. She is not sexually active. Bladder stim working great, no LIZETTE now. At ER she told she had a lot of stool on CT scan so had an enema, didn't really help and also no on daily miralax and senna. Wakes up in the night with pain. Pain is usually worst in the morning. * Medical History: * Brick Pitcher History: D enies H/O Gardasil series. D enies H/O Hx of Recurrent UTIs. D enies H/O Chronic pelvic pain. M enstrual history A ge of Menarche: 1 5 F requency of menstruation per month: o ligomenorrhea q 200 days H /O PCOS. H /O Abnormal menstruations. B irth control N one. D enies H/O Sexually Transmitted Diseases (STDs). D enies H/O Abnormal pap smear. D enies H/O Dysmenorrhea. * Surgical History: a ppendectomy (possibly encapsulated) 2007tonsillectomy 2012wisdom teeth extraction 2019bladder Interstim - Florian orbotic WILBERT and exicision of right hydroslapinx - Arnulfo 2023 * Hospitalization/Major Diagno stic Procedure: d enies * Family History: F ather: alive, diagnosed with Mental Illness. M other: alive, diagnosed with Mental Illness. B rother: alive, diagnosed with Mental Illness. grandfather - colon cancer. * Social History: n o TAD use, single, unemployed. * Medications: T akingDrospirenone-Ethinyl Estradiol 3-0.02 MG Tablet 1 tablet Orally Once a day Celecoxib 100 MG Capsule Oral Cyclobenzaprine HCl 5 MG Tablet Oral Dicyclomine HCl 20 MG Tablet Oral Pantoprazole Sodium 40 MG Tablet Delayed Release Oral Senna 8.6 MG Tablet Oral Polyethylene Glycol 3350 17 GM Packet Oral Taking Drospirenone- Ethinyl Estradiol 3-0.02 MG Tablet 1 tablet Orally Once a day Taking Celecoxib 100 MG Capsule Oral Taking Cyclobenzaprine HCl 5 MG Tablet Oral Taking Dicyclomine HCl 20 MG Tablet Oral Taking Pantoprazole Sodium 40 MG Tablet Delayed Release Oral Taking Senna 8.6 MG Tablet Oral Taking Polyethylene Glycol 3350 17 GM Packet Oral Not- TakingSemaglutide Omer Carbonate 300 MG Capsule 1 capsule at bedtime Orally Once a day hydrOXYzine HCl 10 MG Tablet 1 tablet as needed Orally Once a day guanFACINE HCl 1 MG Tablet 1 tablet at bedtime Orally Once a day diazePAM 10 MG Tablet 1 tablet as needed Orally Once a day clomiPRAMINE HCl 25 MG Capsule 1 capsule Orally Twice a day ChlorproMAZINE Benztropine Mesylate 1 MG Tablet 1 tablet Orally Once a day Metoprolol-HCTZ ER Vistaril Sertraline HCl 100 MG Tablet Oral Nextstellis 3-14.2 MG Tablet 1 tablet Orally Once a day Prazosin HCl 1 MG Capsule 1 capsule at bedtime Orally Once a day SEROquel 25 MG Tablet 1 tablet at bedtime Orally Once a day Abilify 10 MG Tablet 1 tablet Orally Once a day Keflex Naltrexone traZODone HCl 50 MG Tablet Oral lamoTRIgine 25 MG Tablet Oral QUEtiapine Fumarate ER 150 MG Tablet Extended Release 24 Hour Oral Not-Taking Semaglutide Not-Taking Omer Carbonate 300 MG Capsule 1 capsule at bedtime Orally Once a day Not-Taking hydrOXYzine HCl 10 MG Tablet 1 tablet as needed Orally Once a day Not-Taking guanFACINE HCl 1 MG Tablet 1 tablet at bedtime Orally Once a day Not-Taking diazePAM 10 MG Tablet 1 tablet as needed Orally Once a day Not-Taking clomiPRAMINE HCl 25 MG Capsule 1 capsule Orally Twice a day Not- Taking ChlorproMAZINE Not-Taking Benztropine Mesylate 1 MG Tablet 1 tablet Orally Once a day Not-Taking Metoprolol-HCTZ ER Not-Taking Vistaril Not-Taking Sertraline HCl 100 MG Tablet Oral Not-Taking Nextstellis 3-14.2 MG Tablet 1 tablet Orally Once a day Not-Taking Prazosin HCl 1 MG Capsule 1 capsule at bedtime Orally Once a day Not-Taking SEROquel 25 MG Tablet 1 tablet at bedtime Orally Once a day Not- Taking Abilify 10 MG Tablet 1 tablet Orally Once a day Not-Taking Keflex Not-Taking Naltrexone Not-Taking traZODone HCl 50 MG Tablet Oral Not-Taking lamoTRIgine 25 MG Tablet Oral Not-Taking QUEtiapine Fumarate ER 150 MG Tablet Extended Release 24 Hour Oral * Allergies: B actrim: Allergy - Criticality HighMetformin: Allergy - Criticality HighFish- derived Products: Allergy - Criticality Highno[Allergies Verified] Objective: * Vitals: G ravida: 0, Para: 0, Ht: 65 in, Wt:284lbs, Weight Change: 3 lbs, BP:110/82mm Hg, LMP: 5//25, MOC: OCP, Mammo: none, BMI:47.25Index, Wt-k.82 kg, Ht-cm: 165.1 cm. * Examination: G eneral Examination: General appearance: a lert, pleasant, well-nourished and in no acute distress . Head: n ormocephalic, atraumatic . Skin: s kin warm and dry. Heart: n ormal peripheral perfusion. Lungs: n ormal respiratory effort. Abdomen: s oft, nontender, no signs of ascites. Musculoskeletal: n o swelling of extremities. Neurologic: a lert and oriented, cooperative, no gross deficits. Psych: w ith good judgement and insight normal affect / mood . Assessment: * Assessment: 1. E ndometriosis of other pelvic peritoneum unsp - N80.399 (Primary) 2 . N ausea with vomiting, unspecified - R11.2 3 . P elvic and perineal pain - R10.2? Plan: * Treatment: * Procedure Codes: * Follow Up: 3 wks fu sympsoms * Billing Information: * Visit Code: 66948 Office Visit, Est Pt., Level 4. * Procedure Codes: * Sign off status: Completed true * Provider: Jessy Arredondo M.D. Date: 0 12/31/2024 Generated for Karani curtis/Rob/eTransmitting on: 0 05/06/2025 06:14 PM CDT History and Physical Notes * Examination Category Sub-Category Detail Notes Category Not es General Examination General appearance: alert, p leasant, well-nourished and in no acute distress Head: normocephalic, atrau matic Heart: normal peripheral pe rfusion Lungs: normal respiratory e ffort Abdomen: soft, nontender, no signs of ascites Neurologic: alert and oriented, cooperative, no gross deficits Skin: skin warm and dry Musculoskeletal: no swelling of extre mities Psych: with good judgement and insight normal affect / mood
--- OUTSIDE RECORDS SUMMARY | 2025-01-01 05:38 | XMS_ITS ---
Author Organization [facility] Address [address] [place] [address] Care Team Providers Care Front End Assistant Name Role Phone Tonja COLON, Prabhjot Primary Care Provider Unavail PRISCILLA Wyatt Unavailable [phone] Encounters Encounter Location Date Provider Diagnosis [facility] [address] [place] [address] 01/01/2025 PRISCILLA ARREDONDO Plan Of Treatment Next Appt Details Provider Name:PRISCILLA Desai, 09/11/2025 09:15:00 AM, [address], [place], [address], Progress Notes * Abida SELBY EDOB: 2 (24 yo F)Acc No.[id number]:01/01/2025 Patient: Abida VALERO :2000 A ge:24 Y S ex:Female Address:[address] [place] [address], [place] [address] * true * Date: Generated for Colton acevedo/Rob/eTransmitting on: 0 05/06/2025 06:13 PM CDT
--- OUTSIDE RECORDS SUMMARY | 2025-01-21 07:15 | XMS_ITS ---
Author Organization [facility] Address [address] [place] [address] Care Team Providers Care Photography Instructor Name Role Phone Tonja COLON, Prabhjot Primary Care Provider Unavail PRISCILLA Wyatt Unavailable [phone] REASON FOR VISIT 3 wk symptoms f/u Encounters Encounter Location Date Provider Diagnosis [facility] [address] [place] [address] 01/21/2025 PRISCILLA ARREDONDO Plan Of Treatment Next Appt Details Provider Name:PRISCILLA Desai, 09/11/2025 09:15:00 AM, [address], [place], [address], Progress Notes * Abida SELBY EDOB: 2 (25 yo F)Acc No.[id number]:01/21/2025 Patient: Fausto VALEROóscar Russ Provider: Jessy Arredondo M.D. :2000 A ge:24 Y S ex:Female Date:01/21/2025 Address:[address] [place] [address], [id number] Pcp:Prabhjot Evangelista MD Subjective: * Chief Complaints: * 1 . 3 wk symptoms f/u. * Medical History: Objective: * Vitals: Assessment: Plan: * Treatment: * Billing Information: * Visit Code: * Procedure Codes: * Electronic signature of ALEXANDRIA ARREDONDO MD on 05/06/2025 at 06:13 PM CDT Sign off status: Pending * Provider: Jessy Arredondo M.D. Date: 01/21/2025 Generated for Colton acevedo/Rob/Sony on: 0 05/06/2025 06:13 PM CDT
--- OUTSIDE RECORDS SUMMARY | 2025-02-01 07:30 | XMS_ITS ---
Author Organization [facility] Address [address] [place] [address] Care Team Providers Care Supervisor Instrument Maintenance Name Role Phone Tonja COLON, Prabhjot Primary Care Provider Unavail PRISCILLA Wyatt Unavailable [phone] REASON FOR VISIT has appt on 01/21 Encounters Encounter Location Date Provider Diagnosis [facility] [address] [place] [address] 02/01/2025 PRISCILLA ARREDONDO Plan Of Treatment Next Appt Details Provider Name:PRISCILLA Desai, 09/11/2025 09:15:00 AM, [address], [place], [address], Progress Notes * Abida SELBY EDOB: 2 (25 yo F)Acc No.[id number]:02/01/2025 Patient: Abida VALERO Provider: Jessy Arredondo M.D. :2000 A ge:24 Y S ex:Female Date:02/01/2025 [facility] Pcp:Prabhjot Evangelista MD Subjective: * Chief Complaints: * 1 . Has appt on 01/21. * Medical History: Objective: * Vitals: Assessment: Plan: * Treatment: * Billing Information: * Visit Code: * Procedure Codes: * Electronic signature of ALEXANDRIA ARREDONDO MD on 05/06/2025 at 06:15 PM CDT Sign off status: Pending * Provider: Jessy Arredondo M.D. Date: 0 02/01/2025 Generated for Colton acevedo/Rob/Sony on: 0 05/06/2025 06:15 PM CDT
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
--- OUTSIDE RECORDS SUMMARY | 2025-03-13 10:30 | XMS_ITS ---
Author Organization [facility] [employer] [facility] Address [address] [place] [address] Care Team Providers Care Naphthol Soaping Machine Operator Name Role Phone Prabhjot Evangelista MD Primary Care Provider Unavail able ARNULFOPRISCILLA Unavailable [phone] Allergies Allergen (clinical drug ingredient) Drug/Non Drug [...] aking Vistaril Not-Taking Metoprolol-HCTZ ER N ot-Taking Kelso Carbonate 300 MG 1 capsule at be [...] Date Provider Diagnosis [facility] [address] [address] 03/13/2025 PRISCILLA ARREDONDO Endometriosis of Pelvic Pertineum [...] mood FU and monitoring, reviewed shor and intermediate manager risks, reviewed this medication is not a proven contraceptive, NSA. 03/13/2025 Pelvic and perineal pain (ICD-10 - R10.2) Improvin well with myfembree, reviewed r/b improvement and positive impact on mood. She is doing well, no current complaints, continue close mood FU and monitoring, reviewed shor and intermediate manager risks, reviewed this medication is not a proven contraceptive, NSA. Plan Of Treatment Next Appt Details Follow Up: 6 mo follow up sx , Reason: Provider Name:PRISCILLA Desai, 09/11/2025 09:15:00 AM, [address] [facility], [facility] [address], [place], [address], Progress Notes * EWELINAFausto AUSTINelyn EDOB: [birth year] (25 yo F)Acc No.[id number]:03/13/2025 Patient: Abida VALERO Provider: Jessy Arredondo M.D. :2000 A ge:24 Y S ex:Female Date:03/13/2025 Address:[address] [facility] Pcp:Prabhjot Evangelista MD Subjective: * Chief Complaints: [...] no LIZETTE now. * Medical History: * Registered Pharmacist History: D enies H/O Gardasil series. D [...] day hydrOXYzine HCl 50 MG Tablet Oral Kelso Carbonate 300 MG Capsule 1 capsule at bedtime Orally Once a day Sertraline HCl 100 MG Tablet Oral traZODone HCl 50 MG Tablet Oral Taking Haldol Taking Myfembree 40-1-0.5 MG Tablet 1 tablet Orally Once a day Taking Abilify 10 MG Tablet 1 tablet Orally Once a day Taking hydrOXYzine HCl 50 MG Tablet Oral Taking Kelso Carbonate 300 MG Capsule 1 capsule at bedtime Orally Once a day Taking Sertraline HCl 100 MG Tablet Oral Taking traZODone HCl 50 MG Tablet Oral Kqg-IzkdgqKbdpdfrarbdy-Orogtxn Estradiol 3-0.02 MG Tablet 1 tablet Orally [...] mood FU and monitoring, reviewed shor and senior living risks, reviewed this medication is not a proven contraceptive, NSA. Plan: * Treatment: * Procedure Codes: * Follow Up: 6 mo follow up sx * Billing Information: * Visit Code: 97211 Office Visit, Est Pt., Level 3. * Procedure Codes: * Sign off status: Completed true * Provider: Jessy Arredondo M.D. Date: 03/13/2025 Generated for Colton acevedo/Rob/Dylonitting on: 0 05/06/2025 06:14 PM CDT History [...]
--- OUTSIDE RECORDS SUMMARY | 2025-03-18 05:00 | XMS_ITS ---
Author Organization [facility] Address [address] [place] [address] Care Team Providers Care Whitewater Rafting Guide Name Role Phone Prabhjot Evangelista Primary Care Provider [phone] REASON FOR VISIT Lab draw results Encounters Encounter Location Date Provider Diagnosis [facility] [address] [place] [address] 03/18/2025 Prabhjot Evangelista Plan Of Treatment No Information Progress Notes * Abida SELBY EDOB: [birth year] (25 yo F)Acc No.[id number]:03/18/2025 Progress Note - Follow-Up Patient: Abida VALERO Appointment Provider: Ruth Ann Evangelista MD :2000 A ge:24 Y S ex:Female Date:03/18/2025 External Visit ID:[id number] Address:[address] , [place] [address] Subjective: * Chief Complaints: * 1 . Lab draw results. * Medical History: Objective: * Vitals: * Physical Examination: Assessment: Plan: * Treatment: * * Electronic signature of Prabhjot Evangelista MD on 05/06/2025 at 06:14 PM CDT Sign off status: Pending * Appointment Provider: Ruth Ann Evangelista MD Date: 0 03/18/2025 Generated for Colton acevedo/Rob/eTransmitting on: 0 05/06/2025 06:14 PM CDT
--- OUTSIDE RECORDS SUMMARY | 2025-03-26 06:30 | XMS_ITS ---
Author Organization [facility] Address [address] [place] [address] Care Team Providers Care Superintendent Building Name Role Phone Prabhjot Evangelista Primary Care Provider [phone] REASON FOR VISIT Lab results Encounters Encounter Location Date Provider Diagnosis [facility] [address] [place] [address] 03/26/2025 Prabhjot Evangelista Plan Of Treatment No Information Progress Notes * Abida SELBY EDOB: 2 (25 yo F)Acc No.[id number]:03/26/2025 Progress Note - Follow-Up Patient: Abida VALERO Appointment Provider: Ruth Ann Evangelista MD :2000 A ge:24 Y S ex:Female Date:03/26/2025 External Visit ID:[id number] Address:[address] , [place] [address] Subjective: * Chief Complaints: * 1 . Lab results. * Medical History: Objective: * Vitals: * Physical Examination: Assessment: Plan: * Treatment: * * Electronic signature of Prabhjot Evangelista MD on 05/06/2025 at 06:13 PM CDT Sign off status: Pending * Appointment Provider: Ruth Ann Evangelista MD Date: 0 03/26/2025 Generated for Printi ng/Fajorgeg/eTransmitting on: 0 05/06/2025 06:13 PM CDT
[2025-05-06 13:00] VITALS: BP 105/67; BP 108/78; PULSE 103; PULSE 110; RESP 18; TEMP 36.3; O2SAT 96; O2SAT 99; BMI 45.2
--- NOTE | 2025-05-06 13:16 | ED.HEATRA ---
HPI - Head Injury General Stated complaint: BANGING HEAD ON WALL @ [facility] PER EMS Time Seen by Provider: 05/06/25 13:03 Source: patient and EMS Mode of arrival: EMS Limitations: no limitations History of Present Illness ED Provider: HPI Narrative: 25-year-old woman presenting from [facility], she bangs her head against the wall when she is frustrated, she was seen here for same she has a laceration in her this point has opened up due to her ensuring there head. She is calm and cooperative in the ER. Related Data Allergies Allergy/AdvReac Type Severity Reaction Status Date / Time buspirone (From BuSpar) Allergy Unknown Verified 05/04/25 15:12 fish derived (fish) Allergy Unknown Verified 05/04/25 15:12 sulfamethoxazole (From Allergy Unknown Verified 05/04/25 15:12 Bactrim) trimethoprim (From Bactrim) Allergy Unknown Verified 05/04/25 15:12 Review of Systems Constitutional: Constitutional: Reports as per [facility] Past Medical History Medical History Neurogenic bladder TBI (traumatic brain injury) Bipolar 1 disorder Social History Social History Patient Tobacco Use Status: Never used Tobacco Physical Exam Const: Other: Patient has, cooperative examined on the [facility] No new trauma noted over the head She has mid forehead 2 cm superficial laceration without drainage, this is older appearing Alert and oriented x4 Medical Decision Making Medical Decision Making [facility] Narrative: 1:19 PM 05/06/2025 (Dr. Milan Yen): Patient evaluated, there was no significant trauma to the head, she has laceration that is being allowed to be healed by secondary intention but she was wearing occlusive dressing which I do not feel is the right way to handle this, so I applied Steri-Strips, otherwise she is well-appearing did not feel further imaging is indicated and she has been calm and cooperative, reviewed [facility] paperwork Independent Historian Clinical information obtained from an independent historian. History obtained from or confirmed by: EMS External Record Review External record reviewed: Outside ED record Tests considered The following testing was considered but not selected: CT brain Prescription Management I considered prescription management with: Antibiotic Social Determinants Patient?s care significantly limited by Social Determinants of Health including: Problems related to primary support group Procedures Laceration Forehead: Site: other (Forehead) Description: linear Skin layer closed with: skin adhesive and steri-strips Discharge Plan Discharge Clinical Impression: Forehead laceration, Adult behavior problem Patient Disposition: Xfer Psychiatric [facility]osp Additional Instructions: I applied Steri-Strips, please do not put occlusive dressings over the skin laceration as so patient does not develop secondary infection, otherwise patient is medically cleared to return to [facility] Print Language: Greenlandic
--- NOTE | 2025-05-06 13:30 | PC.NURSE ---
no change manager needed per charge coordinator. 1:1 sitter present.
[2025-05-06 13:56] VITALS: BP 105/67; PULSE 103; RESP 18; TEMP 36.3; O2SAT 99
[2025-05-06 14:16] VITALS: BP 104/70; PULSE 90; RESP 18; O2SAT 99
[2025-05-06 14:17] VITALS: BP 104/70; PULSE 90; RESP 18; TEMP -17.7; TEMP 0; O2SAT 99
--- NOTE | 2025-05-06 16:39 | PC.NURSE ---
pt attempting to exit seek. managed to get away from 1:1 sitter. eventually, able to re-direct and get back into bed. pt provided w/ coloring utensils/paper and snacks. pt remains calm/cooperative. pending S transfer to [facility] 1630. 1:1 sitter remains present.
--- NOTE | 2025-05-06 17:02 | PC.NURSE ---
report given to ALEXANDRO Cage on [facility] at this time. pending transfer.
[2025-05-06] MEDS: OLANZapine ODT 10 MG TAB.RAPDIS TRANSLINGU (18:13)
--- NOTE | 2025-05-06 18:21 | PC.NURSE ---
pt found to be hitting head against the wall in the bathroom lightly. no trauma noted. multiple staff members needed to assist pt back into bed. pt eventually back in bed w/ assistance. willingly took PO medication. effectiveness pending. 1:1 sitter remains present.
[2025-05-06 18:33] VITALS: BP 110/69; PULSE 89; RESP 18; O2SAT 95
--- OUTSIDE RECORDS SUMMARY | 2025-05-06 19:13 | XMS_ITS | Encounter Summary ---
Author Organization [facility] Address [address] [place] [address] Phone Care Team Providers Care Labourers Name Role Phone Prabhjot Evangelista MD Primary Care Provider [phone] Reason for Referral * Consultation (Urgent) - Closed Specialty Diagnoses / Procedures Referred By Contac t Referred To Contact Gastroenterology Diagnoses LUQ abdominal pain Prabhjot Evangelista MD [address] [place] [address] Phone: tel: fax: Chel Desai PA [address] [facility] [address] [place] [address] Phone: tel: fax: Referral ID Status Reason Start Date Expiration Date Visits Re quested Visits Authorized [id number] Closed 12/28/2024 12/29/2025 1 1 Encounter Details Date Type Department Care Team (Latest Contact Info) Description 12/28/2024 Transcribe Orders [facility] [address] [place] [address] Prabhjot Evangelista MD [address] [place] [address] LUQ abdominal pain (Primary Dx) [...] any time in the past 12 m [facility], were you homeless or living in a intermediate (including now)? 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 Gender Identity Not on file Sexual Orientation Not on file documented as of this encounter Plan of Treatment Scheduled Referrals Name Type Priority Associated Diagnoses Order Schedule Ambulatory referral to Gastroenterology Outpatient Referral Routine LUQ abdominal pain 1 Occurrences starting 12/28/2024 until 06/30/2026 documented as of this encounter Visit Diagnoses Diagnosis LUQ abdominal pain- Primary documented in this encounter Care Teams Labourers Relationship Specialty Start Date End Date Prabhjot Evangelista MD [address] [place] [address] PCP - General Family Medicine 06/04/24 documented as of this encounter
--- OUTSIDE RECORDS SUMMARY | 2025-05-06 19:13 | XMS_ITS | Encounter Summary ---
Author Organization [facility] Address [address] [place] [address] Phone Care Team Providers Care Inventory And Pricing Associate Name Role Phone Prabhjot Evangelista MD Primary Care Provider [phone] Encounter Details Date Type Department Care Team (Latest Contact Info) Description 09/10/2022 Transcribe Orders [facility] [place]Invasive Cardiology [address] [place] [address] Griselda Segal DO [address] [place] [address] Chest pain, unspecified type (Primary Dx) Social History Tobacco Use Types Packs/Day Years Used Date Smoking Tobacco: Never Assessed Comments Unknown Sex and Gender Information Value Date Recorded Sex Assigned at Not on file Legal Sex Female 10:38 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 Gender Identity Not on file Sexual Orientation Not on file documented as of this encounter Plan of Treatment Not on file documented as of this encounter Visit Diagnoses Diagnosis Chest pain, unspecified type- Primary documented in this encounter Additional Health Concerns Infection Onset Date Last Indicated Resolved Time COVID-19 (suspected) 08/09/2024 08/09/2024 024 8:27 PM 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 documented as of this encounter Care Teams Inventory And Pricing Associate Relationship Specialty Start Date End Date Prabhjot Evangelista MD [address] [place] [address] PCP - General Family Medicine 06/04/24 documented as of this encounter
--- OUTSIDE RECORDS SUMMARY | 2025-05-06 19:13 | XMS_ITS | Clinical Summary ---
Author Organization [facility] Address [address] [place] [address] Care Team Providers Care Washer Engineer Helper Name Role Phone Unknown, Doctor Primary Care [...] DTaP,Tdap,and Td Vaccines (1 - Tdap) 2024 Alcohol/Substance Use Screening 08/22/2024 Depression Screening and Follow-Up 08/22/2024 Social Drivers of Health Kavitha ual Screening 08/22/2024 COVID-19 Vaccine (1 - 2023-2 5 season) 2025 Influenza Vaccine (#1) 2025 RSV Vaccine (60+ years old a nd patients) (1 - 1-dose 75+ series) 2077 Meningococcal Vaccine Aged Out No blas ely eligible based on patient's age to complete this topic Pneumococcal Vaccine: Pediat lefty (0-5 Years) and At-Risk Patients (6-50 Years) Aged Out No longer eligible b ased on patient's age to complete this topic Procedures * Due to [place] state law, this organization might not be [...] Last 3 Months Results * Due to [place] Healthy Humans law, this organization might not be sharing negative HIV tests. * Rapid COVID-19 RNA for Surveillance (ED Only) (04/12/2025 4:13 PM EDT) [facility] PCR, SARS CoV-2 RNA Not Detected [...] validated and its performance characteristics determined by [facility]. This test has not been cleared or approved by the U.S. Food and Drug Administration (FDA). FDA Policy for Diagnostic Tests for Coronavirus Disease-2019 during the Public Health Emergency issued November 05, 2019, is followed. Katerine Wing MD LAB BODY FLUIDS AND STOOLS ORDERABLES Final Result [facility] [address] [place] [address], [place] * (ABNORMAL) CBC Auto Differential (04/12/2025 [...] 04/12/2025 4:21 PM EDT [facility] Neutrophil # 4.08 1.50 - 7.80 10*3/uL 04/12/2025 4:21 PM EDT [facility] Immature Grans # 0.04(H) <=0.03 10*3/uL 04/12/2025 4:21 PM EDT [facility] Lymphocyte # 1.30 0.85 - 3.90 10*3/uL 04/12/2025 4:21 PM EDT [facility] Monocyte # 0.40 0.20 - 0.95 10*3/uL 04/12/2025 4:21 PM EDT [facility] Eosinophil # 0.10 0.02 - 0.50 10*3/uL 04/12/2025 4:21 PM EDT [facility] Basophil # <0.03 0.00 - 0.20 10*3/uL 04/12/2025 4:21 PM EDT [facility] nRBC % 0.0 /100 WBCs 04/12/2025 4:21 PM EDT [facility] nRBC # <0.01 <0.01 10*3/uL 04/12/2025 4:21 PM EDT [facility] Blood Structure of peripheral vein / Unknown Venipuncture / Unknown 04/12/2025 4:13 PM EDT 04/12/2025 4:18 PM EDT Katerine Wing MD LAB BLOOD ORDERABLES Final Result Performing Organization Address [facility] [[email or web address]] Co de Phone Number [facility] [address] [place] [address], [place] * hCG, Qualitative, Serum (04/12/2025 4:13 [...] BLOOD ORDERABLES Final Result Performing Organization Address City/[facility]/ZIP Co de Phone Number [facility] [address] [place] [address], [place] * Acetaminophen Level (04/12/2025 4:13 PM EDT) Acetaminophen <5.0 <10.0 ug/mL 04/12/2025 4:51 PM EDT [facility] Comment:Expected Range with Therapeutic Dosin-30 ug/mL Blood Structure of peripheral vein / Unknown Venipuncture / Unknown 04/12/2025 4:13 PM EDT 04/12/2025 4:18 PM EDT Katerine Wing MD LAB BLOOD ORDERABLES Final Result Performing Organization Address [facility]/ZIP Co de Phone Number [facility] [address] [place] [address], [place] * Salicylate Level (04/12/2025 4:13 PM EDT) Salicylate <1 <3 mg/dL 04/12/2025 4:51 PM EDT [facility] Comment:Expected Range with Therapeutic Dosin-30 mg/dL Blood Structure of peripheral vein / Unknown Venipuncture / Unknown 04/12/2025 4:13 PM EDT 04/12/2025 4:18 PM EDT Katerine Wing MD LAB BLOOD ORDERABLES Final Result Performing Organization Address [facility] [[email or web address]] Co de Phone Number [facility] [address] [place] [address], [place] * (ABNORMAL) [place] Level (04/12/2025 4:13 PM EDT) [place] 0.3(L) 0.6 - 1.2 mmol/L 04/13/2025 9:09 AM EDT [facility] Blood Structure of peripheral vein / Unknown Venipuncture / Unknown 04/12/2025 4:13 PM EDT 04/12/2025 4:18 PM EDT Darrell Kothari DO LAB BLOOD ORDERABLES Final R esult Performing Organization Address City/[facility]/ZIP Co de Phone Number [facility] [address] [place] [address], [place] * (ABNORMAL) CMP - Comprehensive Metabolic Panel (04/12/2025 4:13 PM EDT) NA 142 135 - 145 mmol/L 04/12/2025 4:50 PM EDT [facility] K 4.0 3.5 - 5.3 mmol/L 04/12/2025 4:50 PM EDT [facility] Cl 106 98 - 107 mmol/L 04/12/2025 4:50 PM EDT [facility] CO2 25 22 - 32 mmol/L 04/12/2025 4:50 PM EDT [facility] Anion Gap 11 5 - 15 04/12/2025 4:50 PM EDT [facility] Glucose 102(H) 65 - 99 mg/dL 04/12/2025 4:50 PM EDT [facility] Creatinine 0.81 0.50 - 1.20 mg/dL 04/12/2025 4:50 PM EDT [facility] Calcium 9.3 8.6 - 10.5 mg/dL 04/12/2025 4:50 PM EDT [facility] Total Protein 6.1 6.0 - 8.0 g/dL 04/12/2025 4:50 PM EDT [facility] Albumin 4.1 3.5 - 5.2 g/dL 04/12/2025 4:50 PM EDT [facility] Bilirubin, Total 0.3 0.2 - 1.2 mg/dL 04/12/2025 4:50 PM EDT [facility] Alkaline Phosphatase 77 35 - 129 U/L 04/12/2025 4:50 PM EDT [facility] AST 17 10 - 40 U/L 04/12/2025 4:50 PM EDT [facility] ALT 18 10 - 40 U/L 04/12/2025 4:50 PM EDT [facility] BUN 9 7 - 23 mg/dL 04/12/2025 4:50 PM EDT [facility] eGFR >90 >=60 mL/min/1 .73m2 04/12/2025 4:50 PM EDT [facility] Comment:The estimated glomer ular filtration rate [...] Final Result [facility] [address] [place] [address], from Last 3 Months Insurance MEDICAID on file MEDICAID Care Teams Washer Engineer Helper Relationship Specialty Start Date End Date Unknown, Doctor Unknown Unknown, REED PCP - General 06/27/22
--- OUTSIDE RECORDS SUMMARY | 2025-05-06 19:13 | XMS_ITS | Clinical Summary ---
Author Organization Health Address [address] [address] Phone Care Team Providers Care Checking Clerk Name Role Phone EdilsonpepeShar DO Primary Care Provider [phone] Allergies Active Allergy Reactions Criticality Noted Date [...] Department Care Team Description 04/15/2025 Telephone [address] [address] Eleonora Holcomb LPN 04/12/2025 Results Follow-Up [address] [phone] Shar Dubois DO EEG awake or drowsy routine 04/12/2025 Orders Only [facility] [address] [phone] Altagracia Mullins, History of traumatic brain injury; Witnessed seizure-like activity (CMS-HCC) 04/11/2025 Telephone [address] [address] Shar Dubois DO 04/08/2025 1:00 PM CDT Office Visit [facility] [address] [address] Shar Dubois DO Passive suicidal ideations (Primary Dx); Endometriosis of fallopian tube; Witnessed seizure-like activity (CMS-HCC); Laceration of scalp without foreign body, subsequent encounter 04/08/2025 Travel 04/07/2025 Travel 04/01/2025 Abstract [facility] [address] [address] Shar Dubois DO 03/13/2025 10:00 AM CDT Office Visit [facility] [address] [phone] Shar Dubois, Bipolar affective disorder, depressed in partial remission (CMS-HCC) (Primary Dx); History of traumatic brain injury; Borderline personality disorder (CMS-HCC); Autism; Witnessed seizure-like activity (CMS-HCC); Obesity, Class III, BMI 40-49.9 (morbid obesity) (CMS-HCC); History of thyroid nodule; POTS (postural orthostatic tachycardia syndrome); PCOS (polycystic ovarian syndrome) 03/13/2025 Social Work [facility] [address] [phone] Maria Jensen, SHAISTA Encounter for screening examination [...] from your doctor or pharmacy? Never 03/12/2025 [facility] Utilities Answer Date Recorded In the past 12 months has [facility] [employer], [employer], or water [employer] threatened to shut off services in your [...] often do you attend chur ch or mandaen services? More than 4 times per year 03/12/2025 Do you belong to any clubs o r organizations such as voodoo groups, unions, fraternal or athletic groups, or [...] Answer Date Recorded PHQ-2 Score 6 03/13/2025 [facility] - Occupational Stress Questionnaire Answer Date [...] were you homeless or living in a [place] facility (including now)? No 03/13/2025 Comments Unknown Sex [...] Visit [facility] [address] [phone] Shar Dubois, DO [address] [place] [address] Health Maintenance Due Date Last Done Comments HIV Screening 2002 Lipid Panel 2002 HPV Vaccines (1 - 3-dose series) 2017 Meningococcal B Vaccine (1 of 2 - Standard) 2018 Hepatitis C Screening 2020 Pap Smear 2023 COVID-19 Vaccine (3 - 2024- season) 2025 05/01/2022, 04/03/2022 Influenza Vaccine (#1) 2025 , [...] of traumatic brain injury Witnessed seizure-like activity ([facility]-HCC) from Last 3 Months Results * EEG awake or drowsy routine (03/26/2025) Anatomical Region Laterality Modality Other Altagracia Mullins DO NEUROLOGY ORDERABLES Fin al Result from Last 3 Months Insurance [facility] [place] [place] [address] HEALTH COMMUNITY CARE COMPLETE HE[employer] [facility] COM[facility] HEALTH Care Teams Checking Clerk Relationship Specialty Start Date End Date Shar Dubois DO [address] [place] [address] PCP - General Family Medicine 02/14/25
--- OUTSIDE RECORDS SUMMARY | 2025-05-06 19:13 | XMS_ITS | Clinical Summary ---
Author Organization [facility] Address [address] [place] [address] Phone Care Team Providers Care Golf Club Head Former Name Role Phone Prabhjot Evangelista MD Primary Care Provider [phone] Allergies Active Allergy Reactions Criticality Noted Date [...] Recorded In the past 12 months has [employer], gas, oil, or water [employer] threatened to shut off services in your [...] were you homeless or living in a mcc (including now)? 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 Gender Identity Not on file Sexual [...] Health Maintenance Due Date Last Done Comments HPV Vaccines (1 - Risk 3-dose series) 2013 Meningococcal B Vaccine (1 of 2 - Standard) 2018 Preventative Visit 01/15/2022 01/15/2021 Pap Smear 2023 Depression Screening 08/22/2024 SBIRT Screening 08/22/2024 Influenza Vaccine (#1) 2025 , 11/23/2023, 04/06/2022 COVID-19 Vaccine (3 - season) 2025 05/01/2022, 04/03/2022 Lipid Panel 07/24/2029 07/24/2024, 01/26/2023 DTaP,Tdap,and Td Vaccines (5 - Td or Tdap) 04/26/2034 04/26/2024, 12/02/2023, 04/06/2022, Additional history exists RSV Vaccine (1 - 1-dose 75+ series) 2077 Hepatitis A Vaccines Completed 04/12/2005, 04/15/20 MMR Vaccines: At-Risk Patients Discontinued 05/02/2006, 04/17/2003 MMR Vaccines Completed 05/02/2006, 04/17/2003 Varicella Vaccines Completed 05/08/2007, 04/17/2003 Hepatitis C Screening Completed 01/04/2022 Hepatitis B Vaccines Completed 05/13/2022, 04/12/2022, 04/17/2003, [...] this topic Medical Devices Implanted Type Area Acid Remover Device Identifier Shelf Expiration Date Model / Serial / Lot Barrier Adhesion 4x3in Absorbable Control Beyond Closure Gynecare Interceed Pelvic Sterile - Sn/A - [id number] Implanted:Qty: 1 on 06/04/2024 by Ashley Kaur MD at [facility] Midline: Pelvis J and J ETHICON 11/19/2028 [id number] / N/A / [id number] Insurance [facility] CARE INDIVIDUAL SELECT SOONER SELECT OR COMPLETE Advance Directives * Full Code (Latest Code Status on File) Date Activated Date Inactivated Comments 08/16/2024 12:06 AM 08/17/2024 3:32 PM Care Teams Golf Club Head Former Relationship Specialty Start Date End Date Prabhjot Evangelista MD [address] [place] [address] PCP - General Family Medicine 06/04/24
--- OUTSIDE RECORDS SUMMARY | 2025-05-06 19:14 | XMS_ITS | Patient Health Record ---
Author Organization [facility] Address [address] [address] Care Team Providers Care Podiatrist Name Role Phone Migration, Provider Unavailable Unavailable Reason For Referral No Information Encounters Encounter Location Date Provider Diagnosis [facility] [address] [address] 07/28/2024 Provider Migration [facility] [address] [address] 07/29/2024 Provider Migration Plan Of Treatment No Information Insurance Providers Payer Name Payer Address Payer Phone Subscriber Number Group Number Insured Name Patient Relationship to Insured Coverage Start Date Coverage End Date [facility] [address] [place] [address] [phone] [id number] Abida Montiel Self - patient is the insured Indigent WO [address] [facility] [place] [phone] [id number] Abida Montiel Self - patient is the insured
--- OUTSIDE RECORDS SUMMARY | 2025-05-06 19:14 | XMS_ITS | Encounter Summary ---
Author Organization [facility] Address [address] [place] [address] Care Team Providers Care Forming Acid Dumper Name Role Phone Jarek Ratliff NP Primary Care Provider [phone] Encounter Details Date Type Department Care Team (Late st Contact Info) Description 04/29/2025 Lab Requisition [facility] - Main Lab [address] [facility] [facility] [place] [address] Lidia Azul, [address] [address] Social History Tobacco Use Types [...] on filedocumented in this encounter Care Teams Forming Acid Dumper Relationship Specialty Start Date End Date Jarek Ratliff NP [facility] [place] [address] PCP - General 04/19/25 documented as of this encounter
--- OUTSIDE RECORDS SUMMARY | 2025-05-06 19:14 | XMS_ITS | Patient Health Record ---
Author Organization [employer] [facility] Address [address] [place] [address] Care Team Providers Care Trainman Name Role Phone Prabhjot Evangelista MD Primary Care Provider Unavail able ARNULFO PRISCILLA Unavailable [phone] Allergies Allergen (clinical drug ingredient) Drug/Non Drug [...] Oral for 30 Days Active Haldol Active Nettleton Carbonate 300 MG 1 capsule at be [...] Risk Notes Problem Polycystic ovary syndrome (disorder) (293561438) Polycystic ovarian syndrome (E28.2) Active confirmed Problem Chronic salpingitis (84156086) Chronic salpingitis (N70.11) Active confirmed Problem Abnormal uterine bleeding (71025842125021 ) Abnormal uterine and vaginal bleeding, unspecified [...] 303 Encounters Encounter Location Date Provider Diagnosis [facility] [address] [place] [address] 06/04/2024 PRISCILLA ARREDONDO [facility] [address] [place] [address] 05/25/2024 PRISCILLA ARREDONDO Pelvic and perineal pain R10.2 ; Intra-abdominal and pelvic swelling, mass and lump, unspecified site R19.00 and Nausea with vomiting, unspecified R11.2 [facility] [address] [place] [address] 06/26/2024 PRISCILLA ARREDONDO Endometriosis of Pelvic Pertineum unsp N80.30 ; Polycystic ovarian syndrome E28.2 and Encntr for f/u exam aft trtmt for cond oth th Z09 [facility] [address] [place] [address] 11/30/2024 PRISCILLA ARREDONDO Encounter for surveillance of contraceptive pills Z30.41 ; Pelvic and perineal pain R10.2 ; Polycystic ovarian syndrome E28.2 and Obesity, unspecified E66.9 [facility] [place] [address] [address] [place] [address] 12/31/2024 PRISCILLA ARREDONDO Nausea with vomiting , unspecified R11.2 ; Endometriosis of other pelvic peritoneum unsp N80.399 and Pelvic and perineal pain R10.2 [facility] [place] [address] 03/13/2025 PRISCILLA ARREDONDO Endometriosis of Pelvic Pertineum unsp N80.30 and Pelvic and perineal pain R10.2 [facility] [place] [address] 05/23/2024 PRISCILLA ARREDONDO [facility] [address] [place] [address] 05/24/2024 PRISCILLA ARREDONDO [facility] [address] [place] [address] 05/28/2024 PRISCILLA ARREDONDO [facility] [address] [place] [address] 05/31/2024 PRISCILLA ARREDONDO [facility] [place] [address] 06/06/2024 PRISCILLA ARREDONDO [facility] [address] [place] [address] 06/19/2024 PRISCILLA ARREDONDO [facility] [address] [place] [address] 06/26/2024 PRISCILLA ARREDONDO [facility] [address] [place] [address] 12/31/2024 PRISCILLA ARREDONDO [facility] [address] [place] [address] 01/01/2025 PRISCILLA ARREDONDO Assessments Encounter Date Diagnosis [...] mood FU and monitoring, reviewed shor and adjunct faculty for medical terminology risks, reviewed this medication is not a [...] 09:15:00 AM, [address], [facility] [address], [place], [address], Insurance Providers Payer Name Payer Address Payer Phone Subscriber Number Group Number Insured Name Patient Relationship to Insured Coverage Start Date Coverage End Date [facility] [address] [place] [address] [id number] Rolo Silva Child - Insured does not have Financial Responsibility (includes legally adopted child) 4 (Medicaid) [facility] [address] [facility] [place] [address] [phone] [id number] Abida Montiel Self - patient is the [...]
--- OUTSIDE RECORDS SUMMARY | 2025-05-06 19:14 | XMS_ITS | Clinical Summary ---
Author Organization [facility] Address [address] [place] [address] Phone Care Team Providers Care Axle Inspector Name Role Phone Unavailable Primary Care Provider [...] Comments Blood Pressure 94/73 10/01/2023 6:15 PM BOAT CANVAS INSTALLER Pulse 115 10/01/2023 6:15 PM BOAT CANVAS INSTALLER Temperature 36.9 C (98.4 F) 10/01/2023 4:30 PM BOAT CANVAS INSTALLER Respiratory Rate 17 10/01/2023 6:15 PM BOAT CANVAS INSTALLER Oxygen Saturation 96% 10/01/2023 6:15 PM BOAT CANVAS INSTALLER Inhaled Oxygen Concentration - - Weight 106.6 kg (235 lb) 10/01/2023 4:08 PM BOAT CANVAS INSTALLER Height 165.1 cm (5' 5 ) 10/01/2023 4:08 PM BOAT CANVAS INSTALLER Body Mass Index 39.11 10/01/2023 4:08 PM BOAT CANVAS INSTALLER Plan of Treatment Health Maintenance Due Date [...] :1973 (Home) Address: [address] [place] [address] Payer ID:Not on file Type:HMO Address: [address] ONLY RX [employer] PL[employer] (INTERNAL) [facility]
--- OUTSIDE RECORDS SUMMARY | 2025-05-06 19:14 | XMS_ITS | Clinical Summary ---
Author Organization [facility] Address [address] [place] [address] Care Team Providers Care Certified Flex Endoscope Reprocessor Name Role Phone Provider, No Pcp Unavailable Unavailable Prabhjot Evangelista Primary Care Provider [phone] Allergies Active Allergy Reactions Criticality Noted Date [...] Active Active Problems No known active problems Social History Tobacco Use Types Packs/Day Years Used Date Smoking Tobacco: Never Passive Smoke Exposure: Never Smokeless Tobacco: Never Tobacco Cessation:Counseling Given: Not Answered Alcohol Use Standard Drinks/Week Comments Defer 0 (1 standard drink = 0.6 oz pur e alcohol) Comments No Sex and Gender Information Value Date Recorded Sex Assigned at Not on file Legal Sex Female 6:43 PM MED AIDE Gender Identity Not on file Sexual Orientation [...] Pediat rics (0-5 Years) and At-Risk Patients (6-49 Years) Aged Out No longer eligible b ased on patient's age to complete this topic Insurance Member Subscriber Plan / Payer (Ef fective for All Dates) Name:Aibda Montiel Relation to Subscriber:Child Name:RADHA JACOBS Date of :1900 (Home) Address: [address] [place] [address] Payer ID:[id number] Type:Not on file Address: [address] [employer] [place] [employer] Care Teams Certified Flex Endoscope Reprocessor Relationship Specialty Start Date End Date Prabhjot Evangelista [address] [place] [address] PCP - General 01/30/25 Provider, No Pcp 01/22/25
--- OUTSIDE RECORDS SUMMARY | 2025-05-06 19:14 | XMS_ITS | Encounter Summary ---
Author Organization [facility] Address [address] [place] [address] Care Team Providers Care Jelly Maker Name Role Phone Jarek Ratliff NP Primary Care Provider [phone] Encounter Details Date Type Department Care Team (Late st Contact Info) Description 04/29/2025 Lab Requisition [facility] - Main Lab [address] [place] [address] Lidia Azul FNP [address] [place] [address] Other salvage determiner (current) drug therapy Social History Tobacco Use [...] HORMONE Routine 04/29/2025 7:00 AM EDT Other salvage determiner (current) drug therapy documented in this encounter Results * Thyroid stimulating hormone (04/29/2025 7:00 AM EDT) TSH 1.84 0.40 - 4.00 mcIU/mL LAB CHEMISTRY METHOD 04/29/2025 12:37 PM EDT [facility] ([facility] Blood Venous blood specimen / Unknown Venipuncture / Unknown 04/29/2025 7:00 AM EDT 04/29/2025 10:46 AM EDT us Lidia CARBAJAL LAB BLOOD ORDERABLES Final Result KARLI REAGAN [place] ([facility] LAB [address] [place] [address], documented in this encounter Visit Diagnoses Diagnosis Other halfway (current) drug therapy documented in this encounter Care Teams Jelly Maker Relationship Specialty Start Date End Date Jarek Ratliff NP [facility] [place] [address] PCP - General 04/19/25 documented as of this encounter
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
--- OUTSIDE RECORDS SUMMARY | 2025-05-06 19:15 | XMS_ITS | Clinical Summary ---
Author Organization [facility] Address [address] [place] [address] Phone Care Team Providers Care Vice President Lending Name Role Phone Jarek Ratliff NP Primary Care Provider [phone] Encounters Date Type Department Care Team Description 04/29/2025 Lab Requisition [facility] Lab [address] [place] [address] Lidia Azul FNP 04/29/2025 Lab Requisition [facility] Lab [address] [place] [address] Lidia Azul FNP Other fdc (current) drug therapy 04/19/2025 Lab Requisition [facility] Lab [address] [place] [address] Jarek Ratliff NP Other long distance billing operator (current) drug therapy 04/19/2025 Lab Requisition [facility] Lab [address] [place] [address] Jarek Ratliff NP from Last 3 Months [...] HORMONE Routine 04/29/2025 7:00 AM EDT Other fdc (current) drug therapy LITHIUM LEVEL Routine 04/19/2025 7:00 AM EDT Other long distance billing operator (current) drug therapy LIPID PANEL WITH REFLEX TO DIRECT LDL Routine 04/19/2025 7:00 AM EDT Other long distance billing operator (current) drug therapy COMPREHENSIVE METABOLIC PANEL Routine 04/19/2025 7:00 AM EDT Other fdc (current) drug therapy from Last 3 Months Results * Thyroid stimulating hormone (04/29/2025 7:00 AM EDT) TSH 1.84 0.40 - 4.00 mcIU/mL LAB CHEMISTRY METHOD 04/29/2025 12:37 PM EDT [facility] Blood Venous blood specimen / Unknown Venipuncture / Unknown 04/29/2025 7:00 AM EDT 04/29/2025 10:46 AM EDT us Lidia Azul DENTAL SALES REPRESENTATIVE LAB BLOOD ORDERABLES Final Result [facility] [address] [place] [address], [place] [phone] * (ABNORMAL) Lipid panel with reflex to direct LDL (04/19/2025 7:00 AM EDT) Cholesterol 180 0 - 200 mg/dL LAB CHEMISTRY METHOD 04/19/2025 10:53 AM [facility] Triglycerides 133 0 - 150 mg/dL LAB CHEMISTRY METHOD 04/19/2025 10:53 AM [facility] HDL 34(L) >=40 mg/dL LAB CHEMISTRY METHOD 04/19/2025 10:53 AM [facility] LDL Calculated 119(H) 0 - 100 mg/dL LAB CHEMISTRY METHOD 04/19/2025 10:53 AM [facility] Comment:Estimated LDL Calcul ated using equation: Total cholesterol - HDL cholesterol - (Triglycerides/5) VLDL Cholesterol Rodrigo 26.6 mg/dL LAB CHEMISTRY METHOD 04/19/2025 10:53 AM [facility] Non HDL Chol. (LDL+VLDL) 146(H) <145 mg/dL LAB CHEMISTRY METHOD 04/19/2025 10:53 AM [facility] Chol/HDL Ratio 5.3(H) 0.0 - 4.4 LAB CHEMISTRY METHOD 04/19/2025 10:53 AM [facility] Blood Venous blood specimen / Unknown Venipuncture / Unknown 04/19/2025 7:00 AM EDT 04/19/2025 9:21 AM EDT Jarek Ratliff NP LAB BLOOD ORDERABLES Final Resu lt Performing Organization Address City/[facility]/ZIP Co de Phone Number [facility] [address] [place] [address], [place] [phone] * [place] level (04/19/2025 7:00 AM EDT) [place] Level 0.9 0.6 - 1.2 mEq/L LAB CHEMISTRY METHOD 04/19/2025 10:53 AM EDT [facility] Blood Venous blood specimen / Unknown Venipuncture / Unknown 04/19/2025 7:00 AM EDT 04/19/2025 9:21 AM EDT Jarek Ratliff NP LAB BLOOD ORDERABLES Final Resu lt Performing Organization Address [facility]/ZIP Co de Phone Number [facility] [address] [place] [address], [place] [phone] * (ABNORMAL) Comprehensive metabolic panel (04/19/2025 7:00 AM EDT) Pathologist [facility] Sodium 140 133 - 145 mmol/L LAB CHEMISTRY METHOD 04/19/2025 10:53 AM [facility] Potassium 4.1 3.5 - 5.5 mmol/L LAB CHEMISTRY METHOD 04/19/2025 10:53 AM EDT [facility] Chloride 108 96 - 110 mmol/L LAB CHEMISTRY METHOD 04/19/2025 10:53 AM EDT [facility] CO2 30 21 - 32 mmol/L LAB CHEMISTRY METHOD 04/19/2025 10:53 AM EDT [facility] Anion Gap 2(L) 3 - 11 LAB CHEMISTRY METHOD 04/19[facility]2025 10[facility] Glucose 69(L) 70 - 100 mg/dL LAB CHEMISTRY METHOD 04/19/2025 10:53 AM [facility] BUN 11 5 - 25 mg/dL LAB CHEMISTRY METHOD 04/19/2025 10:53 AM [facility] Creatinine 0.82 0.50 - 1.10 mg/dL LAB CHEMISTRY METHOD 04/19/2025 10:53 AM [facility] eGFR 103 >=60 mL/min/1. 73m2 LAB CHEMISTRY METHOD 04/19/2025 10:53 AM [facility] Comment:Calculation based on the Chronic Kidney Disease Epidemiology Collaboration (CKD-EPI) equation refit without adjustment for race. BUN/Creatinine Ratio 13.4 LAB CHEMISTRY METHOD 04/19/2025 10:53 AM [facility] Calcium 9.3 8.5 - 10.5 mg/dL LAB CHEMISTRY METHOD 04/19/2025 10:53 AM [facility] AST (SGOT) 15 10 - 42 unit/L LAB CHEMISTRY METHOD 04/19/2025 10:53 AM [facility] ALT (SGPT) 19 10 - 60 unit/L LAB CHEMISTRY METHOD 04/19/2025 10:53 AM [facility] Alkaline Phosphatase 78 42 - 121 unit/L LAB CHEMISTRY METHOD 04/19/2025 10:53 AM [facility] Total Protein 6.2 6.0 - 8.0 g/dL LAB CHEMISTRY METHOD 04/19/2025 10:53 AM [facility] Albumin 3.7 3.2 - 5.0 g/dL LAB CHEMISTRY METHOD 04/19/2025 10:53 AM [facility] Total Bilirubin 0.5 0.0 - 1.4 mg/dL LAB CHEMISTRY METHOD 04/19/2025 10:53 AM [facility] Blood Venous blood specimen / Unknown Venipuncture / Unknown 04/19/2025 7:00 AM EDT 04/19/2025 9:21 AM EDT us Jarek Ratliff INVESTIGATIONS MANAGER LAB BLOOD ORDERABLES Final Resu lt [facility] [address] [place] [address], from Last 3 Months Care Teams Vice President Lending Relationship Specialty Start Date End Date Jarek Ratliff NP [facility] [place] [address] PCP - General 04/19/25
--- OUTSIDE RECORDS SUMMARY | 2025-05-06 19:15 | XMS_ITS | Encounter Summary ---
Author Organization [facility] Address [address] [place] [address] Care Team Providers Care Collections Analyst Name Role Phone Jarek Ratliff NP Primary Care Provider [phone] Encounter Details Date Type Department Care Team (Late st Contact Info) Description 04/19/[address] [facility] Lab [address] [place] [address] Jarek Ratliff NP [facility] [place] [address] Social History Tobacco Use Types Packs/Day Years [...] on filedocumented in this encounter Care Teams Collections Analyst Relationship Specialty Start Date End Date Jarek Ratliff NP [address] [place] [address] PCP - General 04/19/25 documented as of this encounter
--- OUTSIDE RECORDS SUMMARY | 2025-05-06 19:15 | XMS_ITS | Encounter Summary ---
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 Social History Tobacco Use [...] LDL Routine 04/19/2025 7:00 AM EDT Other halfway (current) drug therapy LITHIUM LEVEL Routine 04/19/2025 7:00 AM EDT Other halfway (current) drug therapy COMPREHENSIVE METABOLIC PANEL Routine 04/19/2025 7:00 AM EDT 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 documented in this encounter Results * [place] level (04/19/2025 7:00 AM EDT) [place] Level 0.9 0.6 - 1.2 mEq/L LAB CHEMISTRY METHOD 04/19/2025 10:53 AM EDT [facility] Blood Venous blood specimen / Unknown Venipuncture / Unknown 04/19/2025 7:00 AM EDT 04/19/2025 9:21 AM EDT us Jarek Ratliff NP LAB BLOOD ORDERABLES Final Resu lt [facility] [address] [place] [address], [place] [phone] * (ABNORMAL) Lipid panel with reflex to direct LDL (04/19/2025 7:00 AM EDT) Cholesterol 180 0 - 200 mg/dL LAB CHEMISTRY METHOD 04/19/2025 10:53 AM EDT [facility] Triglycerides 133 0 - 150 mg/dL LAB CHEMISTRY METHOD 04/19/2025 10:53 AM [facility] HDL 34(L) >=40 mg/dL LAB CHEMISTRY METHOD 04/19/2025 10:53 AM EDT [facility] LDL Calculated 119(H) 0 - 100 mg/dL LAB CHEMISTRY METHOD 04/19/2025 10:53 AM EDT [facility] Comment:Estimated LDL Calcul ated using equation: Total cholesterol - HDL cholesterol - (Triglycerides/5) VLDL Cholesterol Rodrigo 26.6 mg/dL LAB CHEMISTRY METHOD 04/19/2025 10:53 AM [facility] Non HDL Chol. (LDL+VLDL) 146(H) <145 mg/dL LAB CHEMISTRY METHOD 04/19/2025 10:53 AM T [facility] Chol/HDL Ratio 5.3(H) 0.0 - 4.4 LAB CHEMISTRY METHOD 04/19/2025 10:53 AM [facility] Blood Venous blood specimen / Unknown Venipuncture / Unknown 04/19/2025 7:00 AM EDT 04/19/2025 9:21 AM EDT us Jarek Gaudencio [employer]BER LAB BLOOD ORDERABLES Final Resu lt [facility] [address] [place] [address], * (ABNORMAL) Comprehensive metabolic panel (04/19/2025 7:00 AM EDT) Sodium 140 133 - 145 mmol/L LAB CHEMISTRY METHOD 04/19/2025 10:53 AM [facility] Potassium 4.1 3.5 - 5.5 mmol/L LAB CHEMISTRY METHOD 04/19/2025 10:53 AM [facility] Chloride 108 96 - 110 mmol/L LAB CHEMISTRY METHOD 04/19/2025 10:53 AM [facility] CO2 30 21 - 32 mmol/L LAB CHEMISTRY METHOD 04/19/2025 10:53 AM [facility] Anion Gap 2(L) 3 - 11 LAB CHEMISTRY METHOD 04/19/2025 10:53 AM [facility] Glucose 69(L) 70 - 100 mg/dL LAB CHEMISTRY METHOD 04/19/2025 10:53 AM [facility] BUN 11 5 - 25 mg/dL LAB CHEMISTRY METHOD 04/19/2025 10:53 AM [facility] Creatinine 0.82 0.50 - 1.10 mg/dL LAB CHEMISTRY METHOD 04/19/2025 10:53 AM [facility] eGFR 103 >=60 mL/min/1. 73m2 LAB CHEMISTRY METHOD 04/19/2025 10:53 AM [facility] Comment:Calculation based on the Chronic Kidney Disease Epidemiology Collaboration (CKD-EPI) equation refit without adjustment for race. BUN/Creatinine Ratio 13.4 LAB CHEMISTRY METHOD 04/19/2025 10:53 AM [facility] Calcium 9.3 8.5 - 10.5 mg/dL LAB CHEMISTRY METHOD 04/19/2025 10:53 AM EDT [facility] AST (SGOT) 15 10 - 42 unit/L LAB CHEMISTRY METHOD 04/19/2025 10:53 AM T [facility] ALT (SGPT) 19 10 - 60 unit/L LAB CHEMISTRY METHOD 04/19/2025 10:53 AM [facility] Alkaline Phosphatase 78 42 - 121 unit/L LAB CHEMISTRY METHOD 04/19/2025 10:53 AM EDT [facility] Total Protein 6.2 6.0 - 8.0 g/dL LAB CHEMISTRY METHOD 04/19/2025 10:53 AM [facility] Albumin 3.7 3.2 - 5.0 g/dL LAB CHEMISTRY METHOD 04/19/2025 10:53 AM [facility] Total Bilirubin 0.5 0.0 - 1.4 mg/dL LAB CHEMISTRY METHOD 04/19/2025 10:53 AM [facility] Blood Venous blood specimen / Unknown Venipuncture / Unknown 04/19/2025 7:00 AM EDT 04/19/2025 9:21 AM EDT us Jarek Ratliff NP LAB BLOOD ORDERABLES Final Resu lt [facility] [address] [place] [address], documented in this encounter Visit Diagnoses Diagnosis Other halfway (current) drug therapy documented in this encounter Care Teams Transitions Manager Relationship Specialty Start Date End Date Jarek Ratliff NP [address] [place] [address] PCP - General 04/19/25 documented as of this encounter
[2025-05-06 19:27] VITALS: BP 110/69; PULSE 89; RESP 18; TEMP 36.5; O2SAT 95
== END 2025-05-06 19:28 ==
PROVIDERS: Emergency Provider Emergency Medicine
DX: S01.81XA Laceration without foreign body of other part of head, initial encounter (principal); F91.9 Conduct disorder, unspecified; X58.XXXA Exposure to other specified factors, initial encounter; Y93.89 Activity, other specified; Y92.89 Other specified places as the place of occurrence of the external cause; Y99.9 Unspecified external cause status; S06.9XAA Unspecified intracranial injury with loss of consciousness status unknown, initial encounter; Z63.9 Problem related to primary support group, unspecified
CPT/HCPCS: 99285

== ENCOUNTER 2025-05-08 18:54 | Emergency (ER) | payer MEDICAID, SELFPAY ==
--- OUTSIDE RECORDS SUMMARY | 2024-07-28 05:00 | XMS_ITS ---
Author Organization [facility] Address [address] [place] [phone] Care Team Providers Care Audio Production Engineer Name Role Phone Migration, Provider Unavailable Unavailable REASON FOR VISIT EMR-Erich Encounters Encounter Location Date Provider Diagnosis [facility] [address] [place] [phone] 07/28/2024 Provider Migration Plan Of Treatment No Information Progress Notes * SOLA AmilcarAngelinaOB:2000 (25 yo F)Acc No.[id number]:07/28/2024 Patient: Fausto VALEROelyn :2000 A ge:24 Y S ex:Female Phone: Address:[address] [place] [address], [place], [address] Subjective: * Chief Complaints: * E MR-Erich * Medical History: * Surgical History: * Hospitalization/Major Diagno stic Procedure: * Medications: Objective: * Vitals: * Physical Examination: Assessment: Plan: * Treatment: * Procedure Codes: * * Date:
--- OUTSIDE RECORDS SUMMARY | 2024-07-29 05:00 | XMS_ITS ---
Author Organization [facility] Address [address] [place] [phone] Care Team Providers Care Theatrical Trouper Name Role Phone Migration, Provider Unavailable Unavailable REASON FOR VISIT EMR-Erich Encounters Encounter Location Date Provider Diagnosis [facility] [address] [place] [phone] 07/29/2024 Provider Migration Plan Of Treatment No Information Progress Notes * SOLA AmilcarAngelinaOB:2000 (25 yo F)Acc No.[id number]:07/29/2024 Patient: Fausto VALEROelyn :2000 A ge:24 Y S ex:Female Phone: Address:[address] [place] [address], [place], [address] Subjective: * Chief Complaints: * E MR-Erich * Medical History: * Surgical History: * Hospitalization/Major Diagno stic Procedure: * Medications: Objective: * Vitals: * Physical Examination: Assessment: Plan: * Treatment: * Procedure Codes: * * Date:
--- OUTSIDE RECORDS SUMMARY | 2024-12-31 11:30 | XMS_ITS ---
Author Organization [facility] Address [address] [place] [address] Care Team Providers Care Emergency Telecommunications Dispatcher Name Role Phone Prabhjot Evangelista MD Primary Care Provider Unavail able ARNULFOPRISCILLA Unavailable [phone] Allergies Allergen (clinical drug ingredient) Drug/Non Drug Allergy documented on EMR Reaction Allergy Type Onset Date Status sulfamethoxazole / trimethoprim Bactrim Unknown Drug Allergy Active Fish derivative (substance) Fish-derived Products Unknown Drug Allergy Active metformin Metformin Unknown Drug Allergy Active [facility] - endometriosis Medications [...] 17 GM Oral for 30 Days Active [place] Carbonate 300 MG 1 capsule at be [...] Date Provider Diagnosis [facility] [address] [place] [address] 12/31/2024 PRISCILLA ARREDONDO Nausea with vomiting , [...] Desai, 09/11/2025 09:15:00 AM, [address] [facility], [facility] [address], [place], [address], Progress Notes * Abida SELBY EDOB: 2 (24 yo F)Acc No.[id number]:12/31/2024 Patient: Tab Abida JOLLY Provider: Jessy Arredondo M.D. :2000 A ge:24 Y S ex:Female Date:12/31/2024 Address:[address] [facility] Pcp:Prabhjot Evangelista MD Subjective: * Chief Complaints: [...] in the morning. * Medical History: * Cement Sprayer Helper History: D enies H/O Gardasil series. D [...] 3350 17 GM Packet Oral Not- TakingSemaglutide [place] Carbonate 300 MG Capsule 1 capsule at [...] Release 24 Hour Oral Not-Taking Semaglutide Not-Taking [place] Carbonate 300 MG Capsule 1 capsule at [...] sympsoms * Billing Information: * Visit Code: 24192 Office Visit, Est Pt., Level 4. * Procedure Codes: * Sign off status: Completed true * Provider: Jessy Arredondo M.D. Date: 0 12/31/2024 Generated for Karani curtis/Rob/eTpapismitting on: 0 05/08/2025 06:37 PM CDT History and Physical Notes * [...]
--- OUTSIDE RECORDS SUMMARY | 2025-01-01 05:38 | XMS_ITS ---
Author Organization [facility] Address [address] [place] [address] Care Team Providers Care Seafood Preparer Name Role Phone Tonja COLON, Prabhjot Primary Care Provider Unavail PRISCILLA Wyatt Unavailable [phone] Encounters Encounter Location Date Provider Diagnosis [facility] [address] [place] [address] 01/01/2025 PRISCILLA ARREDONDO Plan Of Treatment Next Appt Details Provider Name:PRISCILLA Desai, 09/11/2025 09:15:00 AM, [address], [place], [address], Progress Notes * Abida SELBY EDOB: 2 (24 yo F)Acc No.[id number]:01/01/2025 Patient: Abida VALERO :2000 A ge:24 Y S ex:Female Address:[address] [place] [address], [place] [address] * true * Date: Generated for Colton acevedo/Rob/eTransmitting on: 0 05/08/2025 06:36 PM CDT
--- OUTSIDE RECORDS SUMMARY | 2025-01-21 07:15 | XMS_ITS ---
Author Organization [facility] Address [address] [place] [address] Care Team Providers Care Locator Specialist Name Role Phone Tonja COLON, Prabhjot Primary Care Provider Unavail PRISCILLA Wyatt Unavailable [phone] REASON FOR VISIT 3 wk symptoms f/u Encounters Encounter Location Date Provider Diagnosis [facility] [address] [place] [address] 01/21/2025 PRISCILLA ARREDONDO Plan Of Treatment Next Appt Details Provider Name:PRISCILLA Desai, 09/11/2025 09:15:00 AM, [address], [place], [address], Progress Notes * Abida SELBY EDOB: 2 (25 yo F)Acc No.[id number]:01/21/2025 Patient: Fausto VALEROóscar Russ Provider: Jessy Arredondo M.D. :2000 A ge:24 Y S ex:Female Date:01/21/2025 Address:[address] [place] [address], [id number] Pcp:Prabhjot Evangelista MD Subjective: * Chief Complaints: * 1 . 3 wk symptoms f/u. * Medical History: Objective: * Vitals: Assessment: Plan: * Treatment: * Billing Information: * Visit Code: * Procedure Codes: * Electronic signature of ALEXANDRIA ARREDONDO MD on 05/08/2025 at 06:36 PM CDT Sign off status: Pending * Provider: Jessy Arredondo M.D. Date: 01/21/2025 Generated for Colton acevedo/Rob/Sony on: 0 05/08/2025 06:36 PM CDT
--- OUTSIDE RECORDS SUMMARY | 2025-02-01 07:30 | XMS_ITS ---
Author Organization [facility] Address [address] [place] [address] Care Team Providers Care Deboning Team Leader Name Role Phone Tonja COLON, Prabhjot Primary Care Provider Unavail PRISCILLA Wyatt Unavailable [phone] REASON FOR VISIT has appt on 01/21 Encounters Encounter Location Date Provider Diagnosis [facility] [address] [place] [address] 02/01/2025 PRISCILLA ARREDONDO Plan Of Treatment Next Appt Details Provider Name:PRISCILLA Desai, 09/11/2025 09:15:00 AM, [address], [place], [address], Progress Notes * Abida SELBY EDOB: 2 (25 yo F)Acc No.[id number]:02/01/2025 Patient: Abida VALERO Provider: Jessy Arredondo M.D. :2000 A ge:24 Y S ex:Female Date:02/01/2025 Address[facility] [id number] Pcp:Prabhjot Evangelista MD Subjective: * Chief Complaints: * 1 . Has appt on 01/21. * Medical History: Objective: * Vitals: Assessment: Plan: * Treatment: * Billing Information: * Visit Code: * Procedure Codes: * Electronic signature of ALEXANDRIA ARREDONDO MD on 05/08/2025 at 06:38 PM CDT Sign off status: Pending * Provider: Jessy Arredondo M.D. Date: 0 02/01/2025 Generated for Colton acevedo/Rob/Sony on: 0 05/08/2025 06:38 PM CDT
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
--- OUTSIDE RECORDS SUMMARY | 2025-03-13 10:30 | XMS_ITS ---
Author Organization The [employer] [facility] (formerly [facility]) Address [address] [place] [address] Care Team Providers Care Barrel Washer Name Role Phone Prabhjot Evangelista MD Primary Care Provider Unavail able ARNULFOPRISCILLA Unavailable [phone] Allergies Allergen (clinical drug ingredient) Drug/Non Drug Allergy documented on EMR Reaction Allergy Type Onset Date Status sulfamethoxazole / trimethoprim Bactrim Unknown Drug Allergy Active Fish derivative (substance) Fish-derived Products Unknown Drug Allergy Active metformin Metformin Unknown Drug Allergy Active REASON FOR VISIT 3 week follow up Medications Medication SIG (Take, Route, Frequency, Duration) Notes Start Date End Date Status Senna 8.6 MG Oral for 60 Days Not-Taking Myfembree 40-1-0.5 MG 1 tablet Orally On ce a day for 30 days 12/31/2024 Active Polyethylene Glycol 3350 17 GM Oral for 30 Days Not-Taking Abilify 10 MG 1 tablet Orally Once a day Active Nortriptyline HCl 25 MG 1 capsule at bed time Orally Once a day for 30 days 12/31/2024 Not-Taking Celecoxib 100 MG Oral for 15 Days Not-Taking Drospirenone-Ethinyl Estradiol 3-0.02 MG 1 tablet Orally Once a day for 90 days 11/30/2024 Not-Taking Dicyclomine HCl 20 MG Oral for 10 Days Not-Taking Cyclobenzaprine HCl 5 MG Oral for 15 Days Not-Taking Pantoprazole Sodium 40 MG Oral for 30 Days Not-Taking Haldol Active traZODone HCl 50 MG Oral for 14 Days Active Naltrexone Not-Takin g QUEtiapine Fumarate ER 150 MG Oral for 14 Days Not-Taking lamoTRIgine 25 MG Oral for 14 Days Not-Taking Sertraline HCl 100 MG Oral for 14 Days Active Prazosin HCl 1 MG 1 capsule at bedtime Orally Once a day Not-Taking Nextstellis 3-14.2 MG 1 tablet Orally On ce a day for 84 days 06/26/2024 Not-Taking Keflex Not-Taking SEROquel 25 MG 1 tablet at bedtime Orally Once a day Not-Taking clomiPRAMINE HCl 25 MG 1 capsule Orally Twice a day Not-Taking Benztropine Mesylate 1 MG 1 tablet Orall y Once a day Not-Taking ChlorproMAZINE Not-T aking Vistaril Not-Taking Metoprolol-HCTZ ER N ot-Taking Middleton Carbonate 300 MG 1 capsule at be dtime Orally Once a day Active Semaglutide Not-Taki ng guanFACINE HCl 1 MG 1 tablet at bedtime Orally Once a day Not-Taking hydrOXYzine HCl 10 MG 1 tablet as needed Orally Once a day Not-Taking diazePAM 10 MG 1 tablet as needed Orally Once a day Not-Taking hydrOXYzine HCl 50 MG Oral for 30 Days Active Vital Signs Blood pressure systolic 120 mm Hg 03/13/20 25 Blood pressure diastolic 82 mm Hg 025 Height 65 in 03/13/2025 Weight 303 lbs 03/13/2025 BMI 50.42 kg/m2 03/13/2025 Height-cm 165.1 cm 03/13/2025 Weight-kg 137.44 kg 03/13/2025 303 Encounters Encounter Location Date Provider Diagnosis [facility] [address] 03/13/2025 PRISCILLA ARREDONDO Endometriosis of Pelvic Pertineum unsp N80.30 and Pelvic and perineal pain R10.2 Assessments Encounter Date Diagnosis (ICD Code) Assessment Notes Treatment Notes Treatment Clinical Notes Section Notes 03/13/2025 Endometriosis of Pelvic Pertineum unsp (ICD-10 - N80.30) Improvin well with myfembree, reviewed r/b improvement and positive impact on mood. She is doing well, no current complaints, continue close mood FU and monitoring, reviewed shor and long term acute care registered nurse risks, reviewed this medication is not a proven contraceptive, NSA. 03/13/2025 Pelvic and perineal pain (ICD-10 - R10.2) Improvin well with myfembree, reviewed r/b improvement and positive impact on mood. She is doing well, no current complaints, continue close mood FU and monitoring, reviewed shor and long term acute care registered nurse risks, reviewed this medication is not a proven contraceptive, NSA. Plan Of Treatment Next Appt Details Follow Up: 6 mo follow up sx , Reason: Provider Name:PRISCILLA Desai, 09/11/2025 09:15:00 AM, [address] [facility], [facility] [address], [place], [address], Progress Notes * EWELINAFausto AUSTINelyn EDOB: [birth year] (25 yo F)Acc No.[id number]:03/13/2025 Patient: Abida VALERO Provider: Jessy Arredondo M.D. :2000 A ge:24 Y S ex:Female Date:03/13/2025 Address:[address] [facility] Pcp:Prabhjot Evangelista MD Subjective: * Chief Complaints: * 3 week follow up * HPI: H PI: Pt states things are going well with myfembree, no complaints, stomach pain has resolved well and this medication worked great, small amount of bleeding. G ynecologic conditions: 24 yo with endometriosis and complex medical history presents for Myfembree FU for chronic abdominopelvic pain. Hx of morbid obesity, CPP, TBI, neurogenic bladder (with stimulator), PCOS, anxiety presents for menses FU. Previously had lots of cramping and endo flare ups she thinks. She had 2-3 weeks of bleeding in October followed by two weeks of spotting. She is diagnosed with POTS and has a very high resting heart rate - She was in the hospital for severely high BP in July - High pulse rate, states they told it was due to POTS. Also in hospital for mood SI event, and now that on myfembree pain is beter and this has helped her mood. S he has started semaglutide for weight loss. She is not sexually active. Bladder stim working great, no LIZETTE now. 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 D [...] Mental Illness. grandfather - colon cancer. * Medications: T akingHaldol Myfembree 40-1-0.5 MG Tablet 1 tablet Orally Once a day Abilify 10 MG Tablet 1 tablet Orally Once a day hydrOXYzine HCl 50 MG Tablet Oral Middleton Carbonate 300 MG Capsule 1 capsule at bedtime Orally Once a day Sertraline HCl 100 MG Tablet Oral traZODone HCl 50 MG Tablet Oral Taking Haldol Taking Myfembree 40-1-0.5 MG Tablet 1 tablet Orally Once a day Taking Abilify 10 MG Tablet 1 tablet Orally Once a day Taking hydrOXYzine HCl 50 MG Tablet Oral Taking Middleton Carbonate 300 MG Capsule 1 capsule at bedtime Orally Once a day Taking Sertraline HCl 100 MG Tablet Oral Taking traZODone HCl 50 MG Tablet Oral Tyr-EgnpuvRttoalvzocge-Dwkdqtj Estradiol 3-0.02 MG Tablet 1 tablet Orally Once a day Celecoxib 100 MG Capsule Oral Cyclobenzaprine HCl 5 MG Tablet Oral Dicyclomine HCl 20 MG Tablet Oral Pantoprazole Sodium 40 MG Tablet Delayed Release Oral Senna 8.6 MG Tablet Oral Polyethylene Glycol 3350 17 GM Packet Oral Nortriptyline HCl 25 MG Capsule 1 capsule at bedtime Orally Once a day Semaglutide hydrOXYzine HCl 10 MG Tablet 1 tablet [...] Orally Once a day Metoprolol-HCTZ ER Vistaril Nextstellis 3-14.2 MG Tablet 1 tablet Orally Once a day Prazosin HCl 1 MG Capsule 1 capsule at bedtime Orally Once a day SEROquel 25 MG Tablet 1 tablet at bedtime Orally Once a day Keflex Naltrexone lamoTRIgine 25 MG Tablet Oral QUEtiapine Fumarate ER 150 MG Tablet Extended Release 24 Hour Oral Medication List reviewed and reconciled with the patientNot-Taking Drospirenone-Ethinyl Estradiol 3-0.02 MG Tablet 1 tablet Orally Once a day Not- Taking Celecoxib 100 MG Capsule Oral Not-Taking Cyclobenzaprine HCl 5 MG Tablet Oral Not-Taking Dicyclomine HCl 20 MG Tablet Oral Not-Taking Pantoprazole Sodium 40 MG Tablet Delayed Release Oral Not-Taking Senna 8.6 MG Tablet Oral Not-Taking Polyethylene Glycol 3350 17 GM Packet Oral Not-Taking Nortriptyline HCl 25 MG Capsule 1 capsule at bedtime Orally Once a day Not-Taking Semaglutide Not-Taking hydrOXYzine HCl 10 MG Tablet 1 tablet as needed Orally Once a day Not-Taking guanFACINE HCl 1 MG Tablet 1 tablet at bedtime Orally Once a day Not-Taking diazePAM 10 MG Tablet 1 tablet as needed Orally Once a day Not-Taking clomiPRAMINE HCl 25 MG Capsule 1 capsule Orally Twice a day Not-Taking ChlorproMAZINE Not-Taking Benztropine Mesylate 1 MG Tablet 1 tablet Orally Once a day Not-Taking Metoprolol-HCTZ ER Not-Taking Vistaril Not-Taking Nextstellis 3-14.2 MG Tablet 1 tablet Orally Once a day Not-Taking Prazosin HCl 1 MG Capsule 1 capsule at bedtime Orally Once a day Not-Taking SEROquel 25 MG Tablet 1 tablet at bedtime Orally Once a day Not- Taking Keflex Not-Taking Naltrexone Not-Taking lamoTRIgine 25 MG Tablet Oral Not-Taking QUEtiapine Fumarate ER 150 MG Tablet Extended Release 24 Hour Oral Medication List reviewed and reconciled with the patient * Allergies: B actrim: Allergy - Criticality HighMetformin: Allergy - Criticality HighFish- derived Products: Allergy - Criticality High Objective: * Vitals: G ravida: 0, Para: 0, Ht: 65 in, Wt:303lbs, Weight Change: 19 lbs, BP:120/82mm Hg, LMP: 02/23/25, MOC: none, Mammo: none, BMI:50.42Index, Wt-k.44 kg, Ht-cm: 165.1 cm. 303. * Examination: G eneral Examination: General appearance: [...] Assessment: * Assessment: 1. E ndometriosis of Pelvic Pertineum unsp - N80.30 (Primary) 2 . P elvic and perineal pain - R10.2 Improvin well with myfembree , reviewed r/b improvement and positive impact on mood. She is doing well, no current complaints, continue close mood FU and monitoring, reviewed shor and fpc risks, reviewed this medication is not a proven contraceptive, NSA. Plan: * Treatment: * Procedure Codes: * Follow Up: 6 mo follow up sx * Billing Information: * Visit Code: 45737 Office Visit, Est Pt., Level 3. * Procedure Codes: * Sign off status: Completed true * Provider: Jessy Arredondo M.D. Date: 03/13/2025 Generated for Colton acevedo/Rob/Dylonitting on: 0 05/08/2025 06:37 PM CDT History and Physical Notes * HPI (History of Present Illness) Category Sub-Category Detail Notes Category Not es HPI Pt states thing s are going well with myfembree, no complaints, stomach pain has resolved well and this medication worked great, small amount of bleeding. Examination Category Sub-Category Detail Notes Category Not [...]
--- OUTSIDE RECORDS SUMMARY | 2025-03-18 05:00 | XMS_ITS ---
Author Organization [facility] Address [address] [place] [address] Care Team Providers Care Vegetable Grader Name Role Phone Prabhjot Evangelista Primary Care Provider [phone] REASON FOR VISIT Lab draw results Encounters Encounter Location Date Provider Diagnosis [facility] [address] [place] [address] 03/18/2025 Prabhjot Evangelista Plan Of Treatment No Information Progress Notes * Abida SELBY EDOB: [birth year] (25 yo F)Acc No.[id number]:03/18/2025 Progress Note - Follow-Up Patient: Abida VALERO Appointment Provider: Ruth Ann Evangelista MD :2000 A ge:24 Y S ex:Female Date:03/18/2025 External Visit ID:[id number] Address:[address] , [place] [address] Subjective: * Chief Complaints: * 1 . Lab draw results. * Medical History: Objective: * Vitals: * Physical Examination: Assessment: Plan: * Treatment: * * Electronic signature of Prabhjot Evangelista MD on 05/08/2025 at 06:37 PM CDT Sign off status: Pending * Appointment Provider: Ruth Ann Evangelista MD Date: 0 03/18/2025 Generated for Colton acevedo/Rob/eTransmitting on: 0 05/08/2025 06:37 PM CDT
--- OUTSIDE RECORDS SUMMARY | 2025-03-26 06:30 | XMS_ITS ---
Author Organization [facility] Address [address] [place] [address] Care Team Providers Care Metal Fabricator Welder Name Role Phone Prabhjot Evangelista Primary Care Provider REASON FOR VISIT Lab results Encounters Encounter Location Date Provider Diagnosis [facility] [address] [place] [address] 03/26/2025 Prabhjot Evangelista Plan Of Treatment No Information Progress Notes * Abida SELBY EDOB: 2 (25 yo F)Acc No.[id number]:03/26/2025 Progress Note - Follow-Up Patient: Abida VALERO Appointment Provider: Ruth Ann Evangelista MD :2000 A ge:24 Y S ex:Female Date:03/26/2025 External Visit ID:[id number] Address:[address] , [place] [address] Subjective: * Chief Complaints: * 1 . Lab results. * Medical History: Objective: * Vitals: * Physical Examination: Assessment: Plan: * Treatment: * * Electronic signature of Prabhjot Evangelista MD on 05/08/2025 at 06:36 PM CDT Sign off status: Pending * Appointment Provider: Ruth Ann Evangelista MD Date: 0 03/26/2025 Generated for Printi ng/Fajorgeg/eTransmitting on: 05/08/2025 06:36 PM CDT
[2025-05-08 19:04] VITALS: BP 120/76; PULSE 119; O2SAT 96; BMI 45.2
--- OUTSIDE RECORDS SUMMARY | 2025-05-08 19:36 | XMS_ITS | Encounter Summary ---
Author Organization [facility] Address [address] [place] [address] Phone Care Team Providers Care Design Engineer Marine Equipment Name Role Phone Prabhjot Evangelista MD Primary Care Provider [phone] Reason for Referral * Consultation (Urgent) - Closed Specialty Diagnoses / Procedures Referred By Contac t Referred To Contact Gastroenterology Diagnoses LUQ abdominal pain Prabhjot Evangelista MD [address] [address] Phone: tel: fax: Chel Desai PA [address] [facility] [address] [place] [address] Phone: tel: fax: Referral ID Status Reason Start Date Expiration Date Visits Re quested Visits Authorized [id number] Closed 12/28/2024 12/29/2025 1 1 Encounter Details Date Type Department Care Team (Latest Contact Info) Description 12/28/2024 Transcribe Orders [facility] [address] [place] [address] Prabhjot Evangelista MD [address] [place] [address] LUQ abdominal pain (Primary Dx) [...] any time in the past [address] [facility], were you homeless or living in a jail (including now)? 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 Gender Identity Not on file Sexual Orientation Not on file documented as of this encounter Plan of Treatment Scheduled Referrals Name Type Priority Associated Diagnoses Order Schedule Ambulatory referral to Gastroenterology Outpatient Referral Routine LUQ abdominal pain 1 Occurrences starting 12/28/2024 until 06/30/2026 documented as of this encounter Visit Diagnoses Diagnosis LUQ abdominal pain- Primary documented in this encounter Care Teams Design Engineer Marine Equipment Relationship Specialty Start Date End Date Prabhjot Evangelista MD [address] [place] [address] PCP - General Family Medicine 06/04/24 documented as of this encounter
--- OUTSIDE RECORDS SUMMARY | 2025-05-08 19:36 | XMS_ITS | Clinical Summary ---
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 Gender Identity Not on file Sexual [...] this topic Medical Devices Implanted Type Area Ostomy Care Nurse Device Identifier Shelf Expiration Date Model / Serial / Lot Barrier Adhesion 4x3in Absorbable Control Beyond Closure Gynecare Interceed Pelvic Sterile - Sn/A - [id number] Implanted:Qty: 1 on 06/04/2024 by Ashley Kaur MD at [facility] Midline: Pelvis J and J ETHICON 11/19/2028 [id number] / N/A / [id number] Insurance [facility] CARE INDIVIDUAL SELECT SOONER SELECT RI COMPLETE Advance Directives * Full Code (Latest Code Status on File) Date Activated Date Inactivated Comments 08/16/2024 12:06 AM 08/17/2024 3:32 PM Care Teams Learning And Development Manager Relationship Specialty Start Date End Date Prabhjot Evangelista MD [address] [place] [address] PCP - General Family Medicine 06/04/24
--- OUTSIDE RECORDS SUMMARY | 2025-05-08 19:36 | XMS_ITS | Encounter Summary ---
Author Organization [facility] Address [address] [place] [address] Phone Care Team Providers Care Digital Solutions Architect Name Role Phone Prabhjot Evangelista MD Primary Care Provider [phone] Encounter Details Date Type Department Care Team (Latest Contact Info) Description 09/10/2022 Transcribe Orders [facility] Non-Invasive Cardiology [address] [place] [address] Griselda Segal DO [address] [place] [address] Chest pain, unspecified type (Primary Dx) Social History Tobacco Use Types Packs/Day Years Used Date Smoking Tobacco: Never Assessed Comments Unknown Sex and Gender Information Value Date Recorded Sex Assigned at Not on file 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 Gender Identity Not on file Sexual Orientation Not on file documented as of this encounter Plan of Treatment Not on file documented as of this encounter Visit Diagnoses Diagnosis Chest pain, unspecified type- Primary documented in this encounter Additional Health Concerns Infection Onset Date Last Indicated Resolved Time COVID-19 (suspected) 08/09/2024 08/09/2024 024 8:27 PM SAMPLING THEORY TEACHER documented as of this encounter Care Teams Digital Solutions Architect Relationship Specialty Start Date End Date Prabhjot Evangelista MD [address] [place] [address] PCP - General Family Medicine 06/04/24 documented as of this encounter
--- OUTSIDE RECORDS SUMMARY | 2025-05-08 19:37 | XMS_ITS | Patient Health Record ---
Author Organization [facility] Address [address] [place] [address] Care Team Providers Care Loom Control Chain Builder Name Role Phone Prabhjot Evangelista MD Primary Care Provider Unavail able ARNULFO PRISCILLA Unavailable [phone] Allergies Allergen (clinical drug ingredient) Drug/Non Drug [...] Oral for 30 Days Active Haldol Active Tat Momoli Carbonate 300 MG 1 capsule at be [...] Risk Notes Problem Polycystic ovary syndrome (disorder) (176452985) Polycystic ovarian syndrome (E28.2) Active confirmed Problem Chronic salpingitis (10289055) Chronic salpingitis (N70.11) Active confirmed Problem Abnormal uterine bleeding (22209262528474 ) Abnormal uterine and vaginal bleeding, unspecified [...] 303 Encounters Encounter Location Date Provider Diagnosis [facility] [address] [place] [address] 06/04/2024 PRISCILLA ARREDONDO [facility] [address] [place] [address] 05/25/2024 PRISCILLA ARREDONDO Pelvic and perineal pain R10.2 ; Intra-abdominal and pelvic swelling, mass and lump, unspecified site R19.00 and Nausea with vomiting, unspecified R11.2 [facility] [address] [place] [address] 06/26/2024 PRISCILLA ARREDONDO Endometriosis of Pelvic Pertineum unsp N80.30 ; Polycystic ovarian syndrome E28.2 and Encntr for f/u exam aft trtmt for cond oth th Z09 [facility] [address] [place] [address] 11/30/2024 PRISCILLA ARREDONDO Encounter for surveillance of contraceptive pills Z30.41 ; Pelvic and perineal pain R10.2 ; Polycystic ovarian syndrome E28.2 and Obesity, unspecified E66.9 [facility] [place] [address] [address] [place] [address] 12/31/2024 PRISCILLA ARREDONDO Nausea with vomiting , unspecified R11.2 ; Endometriosis of other pelvic peritoneum unsp N80.399 and Pelvic and perineal pain R10.2 [facility] [place] [address] 03/13/2025 PRISCILLA ARREDONDO Endometriosis of Pelvic Pertineum unsp N80.30 and Pelvic and perineal pain R10.2 [facility] [place] [address] 05/23/2024 PRISCILLA ARREDONDO [facility] [address] [place] [address] 05/24/2024 PRISCILLA ARREDONDO [facility] [address] [place] [address] 05/28/2024 PRISCILLA ARREDONDO [facility] [address] [place] [address] 05/31/2024 PRISCILLA ARREDONDO [facility] [place] [address] 06/06/2024 PRISCILLA ARREDONDO [facility] [address] [place] [address] 06/19/2024 PRISCILLA ARREDONDO [facility] [address] [place] [address] 06/26/2024 PRISCILLA ARREDONDO [facility] [address] [place] [address] 12/31/2024 PRISCILLA ARREDONDO [facility] [address] [place] [address] 01/01/2025 PRISCILLA ARREDONDO Assessments Encounter Date Diagnosis [...] mood FU and monitoring, reviewed shor and alf risks, reviewed this medication is not a proven contraceptive, NSA. 03/13/2025 Endometriosis of Pelvic Pertineum unsp (ICD-10 - N80.30) Improvin well with myfembree, reviewed r/b improvement and positive impact on mood. She is doing well, no current complaints, continue close mood FU and monitoring, reviewed shor and terminal system operator risks, reviewed this medication is not a [...] 09:15:00 AM, [address], [facility] [address], [place], [address], Insurance Providers Payer Name Payer Address Payer Phone Subscriber Number Group Number Insured Name Patient Relationship to Insured Coverage Start Date Coverage End Date [facility] [address] [place] [address] [id number] Rolo Silva Child - Insured does not have Financial Responsibility (includes legally adopted child) 4 (Medicaid) [facility] [address] [facility] [place] [address] [id number] Abida Montiel Self - patient is the [...]
--- OUTSIDE RECORDS SUMMARY | 2025-05-08 19:37 | XMS_ITS | Clinical Summary ---
Author Organization Health Address [address] [address] Phone Care Team Providers Care Water Well Driller Name Role Phone EdilsonpepeShar DO Primary Care Provider [phone] Allergies Active Allergy Reactions Criticality Noted Date [...] Department Care Team Description 04/15/2025 [address]phone [address] [phone] Eleonora Holcomb LPN 04/12/2025 Results Follow-Up [address] [phone] Shar Dubois DO EEG awake or drowsy routine 04/12/2025 Orders Only OU [address] [phone] Altagracia Mullins, History of traumatic brain injury; Witnessed seizure-like activity (CMS-HCC) 04/11/2025 Telephone [address] [address] Shar Dubios DO 04/08/2025 1:00 PM CDT Office Visit OU [address] [phone] Shar Dubois DO Passive suicidal ideations (Primary Dx); Endometriosis of fallopian tube; Witnessed seizure-like activity (CMS-HCC); Laceration of scalp without foreign body, subsequent encounter 04/08/2025 Travel 04/07/2025 Travel 04/01/2025 Abstract OU [address] [address] Shar Dubois DO 03/13/2025 10:00 AM CDT Office Visit [facility] [address] [phone] Shar Dubois, Bipolar affective disorder, depressed in partial remission (CMS-HCC) (Primary Dx); History of traumatic brain injury; Borderline personality disorder (CMS-HCC); Autism; Witnessed seizure-like activity (CMS-HCC); Obesity, Class III, BMI 40-49.9 (morbid obesity) (CMS-HCC); History of thyroid nodule; POTS (postural orthostatic tachycardia syndrome); PCOS (polycystic ovarian syndrome) 03/13/2025 Social Work [facility] [address] [phone] Maria Jensen, SHAISTA Encounter for screening examination [...] from your doctor or pharmacy? Never 03/12/2025 [facility] Utilities Answer Date Recorded In the past 12 months has [facility] [employer], [employer], or water [employer] threatened to shut off services in your [...] often do you attend chur ch or baptist services? More than 4 times per year 03/12/2025 Do you belong to any clubs o r organizations such as caodaism groups, unions, fraternal or athletic groups, or [...] Answer Date Recorded PHQ-2 Score 6 03/13/2025 [facility] - Occupational Stress [...] you homeless or living in a senior living (including now)? No 03/13/2025 Comments Unknown Sex [...] Care Team (Late st Contact Info) Description 05/13/2025 4:00 PM CDT Office Visit [facility] [address] [phone] Shar Dubois DO [address] [place] [phone] 05/20/2025 9:00 AM CDT Office Visit [facility] [place] [address] [place] [phone] Shar Dubois, [address] [place] [phone] Health Maintenance Due Date Last Done Comments HIV Screening 2002 Lipid Panel 2002 HPV Vaccines (1 - 3-dose series) 2017 Meningococcal B Vaccine (1 of 2 - Standard) 2018 Hepatitis C Screening 2020 Pap Smear 2023 COVID-19 Vaccine ( - season) 2025 05/01/2022, 04/03/2022 Influenza Vaccine (#1) [...] of traumatic brain injury Witnessed seizure-like activity ([facility]) from Last 3 Months Results * EEG awake or drowsy routine (03/26/2025) Anatomical Region Laterality Modality Other Altagracia Mullins DO NEUROLOGY ORDERABLES Fin al Result from Last 3 Months Insurance [employer] Member Subscriber Plan / Payer (Ef fective 2024-Present) Name:Abida Selby Relation to Subscriber:Child Name:ANAND SELBY Date of :1975 (Home) Address: [address] [address] Payer ID:[id number] Group ID:Not on file Type:HMO Address: [address] HEALTH PENDING SALE TO [facility] [place] [facility] Care Teams Water Well Driller Relationship Specialty Start Date End Date Shar Dubois DO [address] [place] [phone] PCP - General Family Medicine 02/14/25
--- OUTSIDE RECORDS SUMMARY | 2025-05-08 19:37 | XMS_ITS | Patient Health Record ---
Author Organization [facility] Address [address] [phone] Care Team Providers Care Certified Professional Coder Name Role Phone Migration, Provider Unavailable Unavailable Reason For Referral No Information Encounters Encounter Location Date Provider Diagnosis [facility] [address] [phone] 07/28/2024 Provider Migration [facility] [address] [phone] 07/29/2024 Provider Migration Plan Of Treatment No Information Insurance Providers Payer Name Payer Address Payer Phone Subscriber Number Group Number Insured Name Patient Relationship to Insured Coverage Start Date Coverage End Date [facility] [address] [place] [address] [phone] [id number] [phone] [id number] Abida Montiel Self - patient is the insured Indigent WO [address] [place] [id number] Abida Montiel Self - patient is the insured
--- OUTSIDE RECORDS SUMMARY | 2025-05-08 19:37 | XMS_ITS | Clinical Summary ---
Author Organization [facility] Address [address] [place] [address] Phone Care Team Providers Care Insurance Specialist Name Role Phone Unavailable Primary Care Provider [...] Comments Blood Pressure 94/73 10/01/2023 6:15 PM BUILDING RIGGER Pulse 115 10/01/2023 6:15 PM BUILDING RIGGER Temperature 36.9 C (98.4 F) 10/01/2023 4:30 PM BUILDING RIGGER Respiratory Rate 17 10/01/2023 6:15 PM BUILDING RIGGER Oxygen Saturation 96% 10/01/2023 6:15 PM BUILDING RIGGER Inhaled Oxygen Concentration - - Weight 106.6 kg (235 lb) 10/01/2023 4:08 PM BUILDING RIGGER Height 165.1 cm (5' 5 ) 10/01/2023 4:08 PM BUILDING RIGGER Body Mass Index 39.11 10/01/2023 4:08 PM BUILDING RIGGER Plan of Treatment Health Maintenance Due Date [...] :1973 (Home) Address: [address] [place] [address] Payer ID:Not on file Type:HMO Address: [address] ONLY RX F[employer]IAS PLANS (INTERNAL) [facility]
--- OUTSIDE RECORDS SUMMARY | 2025-05-08 19:37 | XMS_ITS | Clinical Summary ---
Author Organization [facility] Address [address] [place] [address] Care Team Prov[address] Care Road Monkey Name Role Phone Unknown, Doctor Primary Care [...] 2077 Meningococcal Vaccine Aged Out No blas ley eligible based on patient's age to complete this topic Pneumococcal Vaccine: Pediat lefty (0-5 Years) and At-Risk Patients (6-50 Years) Aged Out No longer eligible b ased on patient's age to complete this topic Procedures * Due to [place] state law, this organization might not be [...] Last 3 Months Results * Due to [place] law, this organization might not be sharing negative HIV tests. * Rapid COVID-19 RNA for Surveillance (ED Only) (04/12/2025 4:13 PM EDT) [facility] PCR, SARS CoV-2 RNA Not Detected Not Detected [employer] GENEXPERT 04/12/2025 5:21 PM EDT [facility] Comment:A Not Detected (Nega tive) [...] PM EDT 04/12/2025 4:19 PM EDT Narrative [facility] - 04/12/2025 5:21 PM EDT This test was developed, validated and its performance characteristics determined by [facility]. This test has not been cleared or approved by the U.S. Food and Drug Administration (FDA). FDA Policy for Diagnostic Tests for Coronavirus Disease-2019 during the Public Health Emergency issued November 05, 2019, is followed. Katerine Wing MD LAB BODY FLUIDS AND STOOLS ORDERABLES Final Result [facility] [address] [place] [address], [place] * (ABNORMAL) CBC Auto Differential (04/12/2025 4:13 PM EDT) WBC 6.0 3.8 - 10.8 10*3/uL 04/12/2025 4:21 PM EDT [facility] RBC 4.32 3.80 - 5.10 10*6/uL 04/12/2025 4:21 PM EDT [facility] Hemoglobin 11.6(L) 11.7 - 15.5 g/dL 04/12/2025 4:21 PM EDT [facility] Hematocrit 35.4 35.0 - 45.0 % 04/12/2025 4:21 PM EDT [facility] MCV 81.9 80.0 - 100.0 fL 04/12/2025 4:21 PM EDT [facility] MCH 26.9(L) 27.0 - 33.0 pg 04/12/2025 4:21 PM EDT [facility] MCHC 32.8 32.0 - 36.0 g/dL 04/12/2025 4:21 PM EDT [facility] RDW 13.9 11.0 - 15.0 % 04/12/2025 4:21 PM EDT [facility] Platelets 263 140 - 400 [...] 04/12/2025 4:21 PM EDT [facility] Neutrophil # 4.08 1.50 - 7.80 10*3/uL 04/12/2025 4:21 PM EDT [facility] Immature Grans # 0.04(H) <=0.03 10*3/uL 04/12/2025 4:21 PM EDT [facility] Lymphocyte # 1.30 0.85 - 3.90 10*3/uL 04/12/2025 4:21 PM EDT [facility] Monocyte # 0.40 0.20 - 0.95 10*3/uL 04/12/2025 4:21 PM EDT [facility] Eosinophil # 0.10 0.02 - 0.50 10*3/uL 04/12/2025 4:21 PM EDT [facility] Basophil # <0.03 0.00 - 0.20 10*3/uL 04/12/2025 4:21 PM EDT [facility] nRBC % 0.0 /100 WBCs 04/12/2025 4:21 PM EDT [facility] nRBC # <0.01 <0.01 10*3/uL 04/12/2025 4:21 PM EDT [facility] Blood Structure of peripheral vein / Unknown Venipuncture / Unknown 04/12/2025 4:13 PM EDT 04/12/2025 4:18 PM EDT Katerine Wing MD LAB BLOOD ORDERABLES Final Result Performing Organization Address [facility] Co de Phone Number [facility] [address] [place] [address], [place] * hCG, Qualitative, Serum (04/12/2025 4:13 PM EDT) HCG Qualitative, Serum Negative Negative [facility] 04/12/2025 4:43 PM EDT [facility] Comment: hCG may be negative in early . Suggest repeat testing in 2-4 days if clinically indicated. The results of this test should be interpreted with the patient's clinical presentation. Blood Structure of peripheral vein / Unknown Venipuncture / Unknown 04/12/2025 4:13 PM EDT 04/12/2025 4:18 PM EDT Katerine Wing MD LAB BLOOD ORDERABLES Final Result Performing Organization Address City/[facility]/ZIP Co de Phone Number [facility] [address] [place] [address], [place] * Acetaminophen Level (04/12/2025 4:13 PM EDT) Acetaminophen <5.0 <10.0 ug/mL 04/12/2025 4:51 PM EDT [facility] Comment:Expected Range with Therapeutic Dosin-30 ug/mL Blood Structure of peripheral vein / Unknown Venipuncture / Unknown 04/12/2025 4:13 PM EDT 04/12/2025 4:18 PM EDT Katerine Wing MD LAB BLOOD ORDERABLES Final Result Performing Organization Address [facility]/ZIP Co de Phone Number [facility]ITALMaeglin SoftwareANDALUSIA [facility] [address] [place] [address], [place] * Salicylate Level (04/12/2025 4:13 PM EDT) Salicylate <1 <3 mg/dL 04/12/2025 4:51 PM EDT [facility] Comment:Expected Range with Therapeutic Dosin-30 mg/dL Blood Structure of peripheral vein / Unknown Venipuncture / Unknown 04/12/2025 4:13 PM EDT 04/12/2025 4:18 PM EDT Kaetrine Wing MD LAB BLOOD ORDERABLES Final Result Performing Organization Address [facility] Co de Phone Number [facility]PITALReno Sub Systems [facility] [address] [place] [address], [place] * (ABNORMAL) Gowen Level (04/12/2025 4:13 PM EDT) Gowen 0.3(L) 0.6 - 1.2 mmol/L 04/13/2025 9:09 AM EDT [facility] Blood Structure of peripheral vein / Unknown Venipuncture / Unknown 04/12/2025 4:13 PM EDT 04/12/2025 4:18 PM EDT Darrell Kothari DO LAB BLOOD ORDERABLES Final R esult Performing Organization Address City/[facility]/ZIP Co de Phone Number [facility] [employer] [facility]ACHWOODReno Sub Systems [employer] Generation ComputerENCOMPASS [facility] [address] [place] [address], [place] * (ABNORMAL) CMP - Comprehensive Metabolic Panel (04/12/2025 4:13 PM EDT) NA 142 135 - 145 mmol/L 04/12/2025 4:50 PM EDT [facility] K 4.0 3.5 - 5.3 mmol/L 04/12/2025 4:50 PM EDT [facility] Cl 106 98 - 107 mmol/L 04/12/2025 4:50 PM EDT [facility] CO2 25 22 - 32 mmol/L 04/12/2025 4:50 PM EDT [facility] - [facility] Anion Gap 11 5 - 15 04/12/2025 4:50 PM EDT [facility] Glucose 102(H) 65 - 99 mg/dL 04/12/2025 4:50 PM EDT [facility] Creatinine 0.81 0.50 - 1.20 mg/dL 04/12/2025 4:50 PM EDT [facility] - [facility] Calcium 9.3 8.6 - 10.5 mg/dL 04/12/2025 4:50 PM EDT [facility] Total Protein 6.1 6.0 - 8.0 g/dL 04/12/2025 4:50 PM EDT [facility] Albumin 4.1 3.5 - 5.2 g/dL 04/12/2025 4:50 PM EDT [facility] - [facility] Bilirubin, Total 0.3 0.2 - 1.2 mg/dL 04/12/2025 4:50 PM EDT [facility] Alkaline Phosphatase 77 35 - 129 U/L 04/12/2025 4:50 PM EDT [facility] AST 17 10 - 40 U/L 04/12/2025 4:50 PM EDT [facility] ALT 18 10 - 40 U/L 04/12/2025 4:50 PM EDT [facility] BUN 9 7 - 23 mg/dL 04/12/2025 4:50 PM EDT [facility] eGFR >90 >=60 mL/min/1 .73m2 04/12/2025 4:50 PM EDT [facility] Comment:The estimated glomer ular [...] - 4.2 g/dL 04/12/2025 4:50 PM EDT [facility] A/G Ratio 2.1 1.5 - 3.0 04/12/2025 4:50 PM EDT [facility] Blood Structure of peripheral vein / Unknown Venipuncture / Unknown 04/12/2025 4:13 PM EDT 04/12/2025 4:18 PM EDT us Katerine Wing MD LAB BLOOD ORDERABLES Final Result [facility] [address] [place] [address], from Last 3 Months Insurance MEDICAID on file MEDICAID Care Teams Road Monkey Relationship Specialty Start Date End Date Unknown, Doctor Unknown Unknown, REED PCP - General 06/27/22
--- OUTSIDE RECORDS SUMMARY | 2025-05-08 19:38 | XMS_ITS | Patient Health Record ---
Author Organization [facility] Address [address] [place] [address] Care Team Providers Care Electronics Design Engineer Name Role Phone LeoneldivyaPrabhjot Primary Care Provider Katiuska Bustamante Unavailable [phone] Rosa Dotson Unavailable [phone] Talisha Cohen Unavailable [phone] Isidra Guerra Unavailable [phone] Allergies Allergen (clinical drug ingredient) Drug/Non Drug Allergy documented on EMR Reaction Allergy Type Onset Date Status Wellbutrin Hives Drug Allergy Active paliperidone Invega Anaphylaxis Drug Allergy Ac tive buspirone busPIRone HCl hives, swelling Drug Allergy Active sulfamethoxazole / trimethoprim Bactrim DS Hives Drug Allergy Active metformin Metformin Hives Drug Allergy Active [place] Hives Drug Allergy Active Results Component Value Reference Range Notes *Urine Culture, Routine (008 847) Reviewed date:05/25/2024 03:54:12 PM Interpretation: Performing Lab:[facility] [address], [place], [place] [id number], Phone - [phone], Director - Julee Notes/Report: Urine Culture, Routine Final report Result 1 Mixed urogenital qamar Greater than 100,000 colony forming units per mL DHEA-Sulfate (864710) Reviewed date:10/22/2024 05:12:34 PM Interpretation: Performing Lab:[facility] [address], [place], [place] [id number], Phone - [phone], Director - Keli Notes/Report: Test(s) 775020-Ymhbltffeaqfaai LCMS was developed and its performance characteristics determined by [facility]. It has not been cleared or approved by the Food and Drug Administration. DHEA-Sulfate 250.0 110.0-431.7 ug/dL *Progesterone (141018) Reviewed date:10/22/2024 05:12:34 PM Interpretation: Performing Lab:[facility] [place], [address] [place] [address] [address], [place], [place] [id number], Phone - [phone], Director - Keli Notes/Report: Test(s) 755771-Iqockkrxqvjibjv LCMS was developed and its performance characteristics determined by [facility]. It has not been cleared or approved by the Food and Drug Administration. Progesterone 0.1 Follicular phase 0.1 - 0.9 Luteal phase 1.8 - 23.9 Ovulation phase 0.1 - 12.0 First trimester 11.0 - 44.3 Second trimester 25.4 - 83.3 Third trimester 58.7 - 214.0 Postmenopausal 0.0 - 0.1 Androstenedione LCMS (745511 ) Reviewed date:10/22/2024 05:12:34 PM Interpretation: Performing Lab:[facility] [address] [place], [place] [address], [place], [place] [id number], Phone - [phone], Director - Keli Notes/Report: Test(s) 016236-Pqdjbivkcctlkjp LCMS was developed and its performance characteristics determined by [facility]. It has not been cleared or approved by the Food and Drug Administration. Androstenedione LCMS 95 41-262 ng/dL *FSH and LH (056141) Reviewed date:10/22/2024 05:12:34 PM Interpretation: Performing Lab:[facility] [address] [place], [place] [address], [place], [place] [id number], Phone - [phone], - Keli Notes/Report: Test(s) 044279-Cyjqdlnasfarxee LCMS was developed and its performance characteristics [...] 05:12:34 PM Interpretation: Performing Lab:[facility] [facility] [address], [place], [place] [id number], Phone - [phone], Director - Keli Notes/Report: Test(s) 551125-Lkubqoepkbkaqcw LCMS was developed and its performance characteristics determined by [facility]. It has not been cleared or approved by the Food and Drug Administration. Vitamin D, 25-Hydroxy 20.6 30.0-100.0 ng/mL Vitamin D deficiency has been defined by the [place] of [employer] and an Endocrine Society practice guideline as a level of serum 25-OH vitamin D less than 20 ng/mL (1,2). The Endocrine Society went on to further define vitamin D insufficiency as a level between 21 and 29 ng/mL (2). 1. IOM ([place] of [employer]). 2010. Dietary reference intakes for calcium and D. [place]: The National Academies Press. 2. Delfino MF, Moise NC, Mindi MANCILLA, et al. Evaluation, treatment, and prevention of vitamin D deficiency: an Endocrine Society clinical practice guideline. JCEM. 2010; 96(7):1911-30. *Testosterone,Free and Total (497579) Reviewed date:10/22/2024 05:12:34 PM Interpretation: Performing Lab:[facility] [address] [facility] [address], [place], [place] [id number], Phone - [phone], Director - Keli Notes/Report: Test(s) 874449-Kyhxblgiqsuvkpd LCMS was developed and its performance characteristics determined by [facility]. It has not been cleared or approved by the Food and Drug Administration. Testosterone 38 13-71 ng/dL Free Testosterone(Direct) 2.7 0.0-4.2 pg/mL *Estradiol (768524) Reviewed date:10/22/2024 05:12:34 PM Interpretation: Performing Lab:[facility] [address] [facility] [address], [place], [place] [id number], Phone - [phone], Director - Keli Notes/Report: Test(s) 782087-Fahsglwatlznxqc LCMS was developed and its performance characteristics determined by [facility]. It has not been cleared or approved by the Food and Drug Administration. Estradiol 36.2 Adult Female Range Follicular phase 12.5 - 166.0 Ovulation phase 85.8 - 498.0 Luteal phase 43.8 - 211.0 Postmenopausal <6.0 - 54.7 1st trimester 215.0 - >4300.0 Brittany ECLIA methodology H. pylori Stool Ag, EIA (180 764) Reviewed date:12/26/2024 03:27:09 PM Interpretation: Performing Lab:[facility] [address] [facility] [address], [place], [place] [address], Phone - [phone], Director - Keli Notes/Report: Clinical Information:SRC: H. pylori Stool Ag, EIA Negative Negative *Vitamin D, 25-Hydroxy (0819 50) Reviewed date:03/06/2025 11:53:11 AM Interpretation: Performing Lab:[facility] [address] [facility] [address], [place], [place] [address], Phone - [phone], Director - Keli Notes/Report: Vitamin D, 25-Hydroxy 19.2 30.0-100.0 ng/mL Vitamin D deficiency has been defined by the [place] of [employer] and an Endocrine Society practice guideline as a level of serum 25-OH vitamin D less than 20 ng/mL (1,2). The Endocrine Society went on to further define vitamin D insufficiency as a level between 21 and 29 ng/mL (2). 1. IOM ([place] of [employer]). 2010. Dietary reference intakes for calcium and D. [place]: The National Academies Press. 2. Delfino MF, Moise NC, Bhavna-Benji MANCILLA, et al. Evaluation, treatment, and prevention of vitamin D deficiency: an Endocrine Society clinical practice guideline. JCEM. 2010; 96(7):1911-30. Nicotine and Metabolite, Peterson nt (880017) Reviewed date:10/11/2024 09:34:30 AM Interpretation:Negative Performing Lab: Notes/Report: Nicotine <1.0 Cotinine <1.0 PHA (901281) Reviewed date:10/11/2024 09:35:27 AM Interpretation: Performing Lab: [...] (R10 .13) Referral Organization [facility] Referring Provider First Name Prabhjot Referring Provider Last Name Tonja Referring Provider [facility] Referred Organization [facility] Referred Provider Mary, Imaging Referred Address [address],[place],[address] Referred Provider Specialty Radiology Procedure 1 Abdominal Ultrasound (39108) General Notes Jack Parada 03:43:12 PM >referral faxed to [facility] Referral Priority Routine Referral Appointment Date 08/17/2024 Reason Left shoulder tendin itis, suspected adhesive capsulitis; Ortho referral Diagnosis 1 Shoulder tendinitis, unspecified laterality (M75.80) Referral Organization [facility] Referring Provider First Name Isidra Referring Provider Last Name Mari Referring Provider [facility] agnes Referred Provider [facility], Ortho Referred Provider Specialty Orthopedic S solery General Notes Rosa Castro 01:31:26 PM >DL and IC attachedAlayna Tresa 12/11/2024 12:25:29 PM >ring to pt__ faxed to [facility]: phone [phone] in [place]. If you have not heard from them [...] ( R10.12) Referral Organization [facility] Referring Provider First Name Prabhjot Referring Provider Last Name Tonja [facility] Referred Organization [facility] Referred Provider MATIAS SAPP Referred Address [address],[place],[address] Referred Provider Specialty Gastroentero logy General Notes [...] Parada 12/21/2024 04:18:01 PM >[facility] 12/26/2024 07:43:12 AM >referral faxed to [facility], Jack Parada 12/28/2024 03:38:47 PM >Faxed to Dr Matias Sapp at [facility] (in network and Dad Rosales said they could get her in quickly), Jack Parada 12/28/2024 04:25:51 PM >Spoke with [facility] to confirm they received referral. She was sending it directly to the payroll and benefits coordinator so that they could get her [...] 1 tablet Orally Once a day Not-Taking [place] 8 MEQ/5ML 300mg tablet 3 times a [...] W/U Status Risk Notes Problem Affective psychosis (246424656) Unspecified mood [affective] disorder (F39) Active confirmed Problem 496596395 Thyroid nodule (E04.1) Active confirmed Problem 775248949 Morbid obesity (E66.01) Active confirmed Problem Polycystic ovary syndrome (disorder) (825877973) PCOS (polycystic ovarian syndrome) (E28.2) Active confirmed Problem Mood disorder (89148799) Mood disorder (F39) Active confirmed Problem Neurogenic bladder (047438366) Neurogenic bladder (N31.9) Active confirmed Problem 020980373 Endometriosis (N80.9) Active confirmed Problem Postconcussion syndrome (72086765) Post concussion syndrome (F07.81) Active confirmed Problem 816313821 Hepatic steatosis (K76.0) Active confirmed Problem 90195429 Recurrent major depressive disorder, in partial remission (F33.41) Active confirmed Problem 894005029 Obsessive-compul sive disorder, unspecified type (F42.9) Active confirmed Problem 790842040 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) Active confirmed Problem 376599794 POTS (postural orthostatic tachycardia syndrome) (G90.A) Active [...] Location Date Provider Diagnosis [facility] [address] [place] [address] 05/22/2024 Katiuska Ray Dysuria R30.0 [facility] [address] [place] [address] 06/27/2024 Katiuska Ray Recurrent major depressive disorder, in partial remission F33.41 and Neurogenic bladder N31.9 [place] [facility] [address] [place] [address] 08/01/2024 Rosa Dotson Recurrent major depressive disorder, in partial remission F33.41 [facility] [address] [place] [address] 08/14/2024 Prabhjot Evangelista Mood disorder F39 ; Obsessive-compulsive disorder, unspecified type F42.9 ; PCOS (polycystic ovarian syndrome) E28.2 ; Morbid obesity E66.01 and Epigastric pain R10.13 [facility] [address] [place] [address] 10/01/2024 Prabhjot Evangelista Inappropriate lactat ion N64.3 ; Low vitamin D level R79.89 ; Morbid obesity E66.01 ; Recurrent major depressive disorder, in partial remission F33.41 ; Hepatic steatosis K76.0 and POTS (postural orthostatic tachycardia syndrome) G90.A [facility] [address] [place] [address] 10/18/2024 Prabhjot Evangelista Strep pharyngitis J0 2.0 [facility] [place] [address] [place] [address] 11/15/2024 Prabhjot Evangelista PHA Review PHA ; Moo d disorder F39 ; Low vitamin D level R79.89 ; PCOS (polycystic ovarian syndrome) E28.2 ; Morbid obesity E66.01 and POTS (postural orthostatic tachycardia syndrome) G90.A [facility] [address] [place] [address] 12/04/2024 Isidra Alpine Shoulder tendonitis M75.80 [facility] [address] [place] [address] 12/07/2024 Prabhjot Evangelista Nausea and vomiting, unspecified vomiting type R11.2 [facility] [address] [place] [address] 12/10/2024 Isidra Mari Shoulder tendinitis, unspecified laterality M75.80 [facility] [address] [place] [address] 12/14/2024 Prabhjot Evangelista Mood disorder F39 ; Nausea R11.0 and Nausea and vomiting, unspecified vomiting type R11.2 [facility] [address] [place] [address] 12/19/2024 Prabhjot Evangelista Nausea R11.0 ; LUQ abdominal pain R10.12 ; Morbid obesity E66.01 and Recurrent major depressive disorder, in partial remission F33.41 [facility] [address] [place] [address] 12/26/2024 Prabhjot Evangelista Lower abdominal pain R10.30 ; Epigastric pain R10.13 ; PCOS (polycystic ovarian syndrome) E28.2 ; History of endometriosis Z87.42 and Nausea and vomiting, unspecified vomiting type R11.2 [facility] [address] [place] [address] 01/09/2025 Prabhjot Evangelista PCOS (polycystic ovarian syndrome) E28.2 ; Morbid obesity E66.01 ; Recurrent major depressive disorder, in partial remission F33.41 ; Lower abdominal pain R10.30 ; Endometriosis N80.9 ; Nausea and vomiting, unspecified vomiting type R11.2 and Chronic constipation K59.09 [facility] [address] [place] [address] 02/28/2025 Prabhjot Evangelista Inappropriate lactat ion N64.3 ; Low vitamin D level R79.89 ; Obsessive-compulsive disorder, unspecified type F42.9 ; PCOS (polycystic ovarian syndrome) E28.2 ; Morbid obesity E66.01 ; Recurrent major depressive disorder, in partial remission F33.41 and History of traumatic brain injury Z87.820 [facility] [address] [place] [address] 04/01/2025 Prabhjot Evangelista Mood disorder F39 ; Low vitamin D level R79.89 ; Morbid obesity E66.01 ; Recurrent major depressive disorder, in partial remission F33.41 ; Obsessive-compulsive disorder, unspecified type F42.9 ; History of traumatic brain injury Z87.820 ; Chronic constipation K59.09 and History of endometriosis Z87.42 [facility] [address] [place] [address] 07/05/2024 Prabhjot Evangelista Recurrent major depressive disorder, in partial remission F33.41 [facility] [address] [place] [address] 10/18/2024 Prabhjot Evangelista [facility] [address] [place] [address] 10/18/2024 Prabhjot Evangelista [facility] [address] [place] [address] 12/17/2024 Prabhjot Evangelista [facility] [address] [place] [address] 12/31/2024 Katiuska Bustamante [facility] [place] [address] [place] [address] 03/01/2025 Prabhjot Prestonzanedivya Assessments Encounter Date Diagnosis [...] completed two weeks of inpt care at [facility]. She will f/u w/psych [facility]. No SI at this time 12/04/2024 Shoulder tendonitis (ICD-10 - M75.80) At this time, patient seems to have left shoulder tendinitis and possibly the beginnings of adhesive capsulitis. We discussed that wwuju-fu-pckqhe exercises are paramount with either possibility. She may use ibuprofen, agbln-yb-aswgrb exercises, heat, and ice. If she is [...] continue to do anti-inflammatories , ice, and vwrab-ep-kxxzvk exercises. I do suspect adhesive capsulitis and [...] (ICD-10 - R79.89) [place] [address] units daily with food and when she [...] syndrome) (ICD-10 - E28.2) She sees her solder technician within the week. 12/14/2024 Nausea and vomiting, [...] - Insured has Financial Responsibility 4 TFOP [id number] RandolphRolo mora Natural Child - Insured has Financial Responsibility 7 7 TFOP [id number] RandolphRolo mora Natural Child - Insured has Financial Responsibility 3 2 TFOP - Plus RandolphRolo mora Natural Child - Insured has Financial Responsibility 7 7 TFOP - PHA Only RandolphRolo mora Natural Child - Insured has Financial Responsibility 2 2 TFOP - PHA Only RandolphRolo mora Natural Child - Insured has Financial [...] TBI-Dr. Rashmi Florian Psych-Dr. Luisa Bourgeois at [facility] Endometriosis Major recurrent Depression w/Anxiety OCD Atypical Anorexia Nervosa Surgical History Surgery Date(Month/Year) Right fillopian tube removal and endomet riosis clean out 06/01/2024 [employer] Sacral Neuromodulator device 05/29/2024 [employer] Sacral Neuromodulator test devic e 05/15/2024 cleared airway January 2024 [place] teeth removal 2018 Tonsillectomy 2015 Appendectomy 2007 Hospitalization History Reason Date(Month/Year) Suicidal Ideation, Inpt at [facility] x2wks 06/10/2024 Suicide attempt, overdose on propanolol, ICU, [facility] 10/2023 Stomach pain 2020 infection from appendectomy 2006
--- NOTE | 2025-05-08 20:06 | ED.GENADULT ---
HPI - General Adult General Chief complaint: General Medical Stated complaint: Bruise to left arm,since med injection Time Seen by Provider: 05/08/25 19:31 Source: patient Mode of arrival: EMS History of Present Illness ED Provider: Mery GAMEZ narrative: 25-year-old female who presents from [facility] with complaints that she has a strange discoloration to the upper portion of her left upper arm that is continued since last , the provider at the facility has placed her on a course of antibiotics but she states that it has not improved at all, she denies any known history of bleeding or coagulation disorders and denies any family history of the same as well. She denies any recent changes in medications and is currently only on lithium/clonidine and states that it feels burning and itchy. Related Data Allergies Allergy/AdvReac Type Severity Reaction Status Date / Time buspirone (From BuSpar) Allergy Unknown Verified 05/08/25 19:11 fish derived (fish) Allergy Unknown Verified 05/08/25 19:11 sulfamethoxazole (From Allergy Unknown Verified 05/08/25 19:11 Bactrim) trimethoprim (From Bactrim) Allergy Unknown Verified 05/08/25 19:11 Review of Systems Review of Systems: Pertinent positives and negatives as stated in HPI PMFSH Past Medical History Source: nursing notes reviewed Medical History Neurogenic bladder TBI (traumatic brain injury) Bipolar 1 disorder Social History Social History Patient Tobacco Use Status: Never used Tobacco Smoked in Last 30 Days: No Use of substances other than those prescribed or required for medical reasons: No Advance Directives: No Advance Directives Information Provided: No Physical Exam ED Exam Exam: VITAL SIGNS: Reviewed. GENERAL: Elevated BMI, Well developed, well nourished, in no acute distress. HEAD: Normocephalic/atraumatic EYES: PERRLA, EOMI EARS: Ext canals without abnormality NOSE: Nares patent bilateral OROPHARYNX: no oral lesions noted, posterior pharynx clear NECK: Supple, no adenopathy LUNGS: Normal breath sounds. No adventitious sounds or accessory muscle use. CARDIOVASCULAR: Regular rate and rhythm without noted murmurs ABDOMEN: Soft, non-tender, non-distended with bowel sounds. MUSCULOSKELETAL: No tenderness, deformities, or effusions noted on gross inspection. EXTREMITIES: No cyanosis, clubbing or edema. LUE: Purplish lesions noted to the lateral aspect of the left upper extremity, no petechiae or purpura noted SKIN: Inspection of the skin reveals no rashes NEUROLOGIC: Alert and oriented x 4. Strength and sensation to light touch were grossly intact x 4. Vital Signs: BMI result Body Mass Index 45.2 Medications Administered Discontinued Medications Generic Name Dose Route Start Last Admin Trade Name Kory PRN Reason Stop Dose Admin Acetaminophen 975 mg 05/08/25 20:44 05/08/25 20:51 Acetaminophen 325 Mg Tablet PO 05/08/25 20:45 975 mg ONCE ONE Administration Medical Decision Making Medical Decision Making [facility] Narrative: 25-year-old female with history and clinical presentation, DX: This does not appear to be purpura/petechial etiology, also patient is not on any medications that I would suspect such side effects, we will obtain basic labs to include coagulation studies. 2105: I reviewed and interpreted all investigations and there is no leukocytosis, anemia, or thrombocytopenia. There is no demonstrate FARIDA/electrolyte derangements. Most importantly there are no liver enzyme derangements and coagulation studies are within normal limits. On further discussion with the patient she did receive IM injections to that right upper extremity and suspect that this may be a reaction to migration of the combination of medications. Does not appear to be allergic or contact dermatitis in etiology, this is not consistent with an eczema or psoriasis. I encouraged the patient to follow up with Dermatology if it persisted beyond 2 weeks. 2121: Urinalysis is otherwise negative for UTI or hematuria. Differential Diagnosis Differential Diagnoses: The differential diagnosis associated with the presentation includes See above Admission/Observation Consideration of admission/observation: Escalation of care including admission/observation considered See above Lab Data [facility] Lab Attestation statement: I reviewed the patient's lab results. See above 05/08/25 20:18 05/08/25 20:18 Labs: Lab Results 05/08/25 05/08/25 Range/Units 20:18 21:00 WBC 7.6 (4.8-10.8) X10*3/uL RBC 4.31 (4.20-5.50) X10*6/uL Hgb 11.8 L (12.0-16.0) g/dl Hct 35.0 L (37.0-47.0) % MCV 81.2 (80.0-98.0) fL MCH 27.4 (27.0-33.0) pg MCHC 33.7 (31.0-35.0) g/dl RDW 14.6 (11.0-16.0) % Plt Count 280 (160-400) X10*3/uL MPV 10.4 (9.4-12.3) fL Immature Gran % (Auto) 0.4 (0.0-0.4) % Neut % (Auto) 69.8 (45-73) % Lymph % (Auto) 20.3 (20-40) % [place]ent % (Auto) 7.1 (2-11) % Eos % (Auto) 1.7 (0-4) % Baso % (Auto) 0.7 (0-2) % Lymph # (Auto) 1.5 (1.2-4.9) X10*3/uL [place]ent # (Auto) 0.5 (0.1-1.2) X10*3/uL Eos # (Auto) 0.1 (0.0-0.4) X10*3/uL Baso # (Auto) 0.1 (0.0-0.2) X10*3/uL Abs Immat Gran (auto) 0.03 (0.00-0.03) X10*3/uL Absolute Neuts (auto) 5.3 (2.0-8.3) x10*3/uL Absolute Nucleated RBC 0.000 (0.0-0.012) X10*3/uL Nucleated RBC % (auto) 0.0 (0.0-0.2) /100WBC PT 12.1 (10.9-12.4) SEC INR 1.1 (0.9-1.1) APTT 31.8 (26.7-34.1) SEC Sodium 143 (135-145) mmol/L Potassium 3.7 (3.3-5.1) mmol/L Chloride 110 H (96-108) mmol/L Carbon Dioxide 24 (22-29) mmol/L Anion Gap 13 (12-20) BUN 14 (9-16) mg/dL Creatinine 0.82 (0.5-1.4) mg/dL Estim Creat Clear Calc 145.4 Estimated GFR > 60 Random Glucose 95 (60-115) mg/dL Calcium 9.1 (8.4-10.2) mg/dL Total Bilirubin 0.2 (0.0-1.0) mg/dL AST 21 (5-31) U/L ALT 18 (0-31) U/L Alkaline Phosphatase 78 (39-117) U/L Total Protein 6.6 (6.5-8.0) g/dL Albumin 4.2 (3.5-5.0) g/dL Urine Color Yellow Urine Appearance Clear Urine pH 5.5 (5.0-9.0) Ur Specific [place] 1.020 (1.005-1.025) Urine Protein Negative (Neg-Trace) mg/dL Urine Glucose (UA) Negative (Negative) mg/dL Urine Ketones Negative (Negative) mg/dL Urine Blood Negative (Negative) Urine Nitrite Negative (Negative) Ur Leukocyte Esterase Small (1+) H (Negative) Urine RBC 0-2 (0-2) /HPF Urine WBC 6-10 H (0-5) /HPF Ur Squamous Epith Cells 6-10 (0-2) /HPF Urine Bacteria Trace (None Seen) Hyaline Casts 0-2 (0-2) /LPF Discharge Plan Discharge Clinical Impression: Discoloration of skin Patient Disposition: Home, Self-Care Additional Instructions: Resume home medications as prescribed. Suspect that this is localized reaction to the injection medication that you received and should take approximately 2 weeks to completely resolve. If this does not resolve in 2 weeks recommend follow-up with your primary care doctor and discussion of a referral to Dermatology. Print Language: Danish
[2025-05-08 20:22] LABS: MANUAL DIFF FLAG NO
[2025-05-08 20:23] LABS: Hematocrit 35.0 % (37.0-47.0); Hemoglobin 11.8 g/dl (12.0-16.0); Imm Gran Abs Auto 0.03 X10*3/uL (0.00-0.03); Imm Gran Pct Auto 0.4 % (0.0-0.4); Lymphocytes Absolute Auto 1.5 X10*3/uL (1.2-4.9); Mean Corpuscular HGB Conc 33.7 g/dl (31.0-35.0); Mean Corpuscular Hemoglobin 27.4 pg (27.0-33.0); Mean Corpuscular Volume 81.2 fL (80.0-98.0); NRBC Abs Auto 0.000 X10*3/uL (0.0-0.012); NRBC Pct Auto 0.0 /100WBC (0.0-0.2); Platelet Count 280 X10*3/uL (160-400); Red Blood Count 4.31 X10*6/uL (4.20-5.50); White Blood Count 7.6 X10*3/uL (4.8-10.8)
[2025-05-08 20:33] LABS: INTERNATIONAL NORM RATIO 1.1 (0.9-1.1); Prothrombin Time 12.1 SEC (10.9-12.4)
[2025-05-08 20:35] LABS: Partial Thromboplastin Time 31.8 SEC (26.7-34.1)
[2025-05-08 20:40] LABS: Alanine Aminotransferase 18 U/L (0-31); Albumin Level 4.2 g/dL (3.5-5.0); Alkaline Phosphatase 78 U/L (39-117); Anion Gap 13 (12-20); Aspartate Amino Transferase 21 U/L (5-31); Blood Urea Nitrogen 14 mg/dL (9-16); Calcium 9.1 mg/dL (8.4-10.2); Carbon Dioxide 24 mmol/L (22-29); Chloride 110 mmol/L (96-108); Creatinine Clr Calc Pharmacy 145.4; Estimated Glomerular Filt Rate > 60; Potassium 3.7 mmol/L (3.3-5.1); Sodium 143 mmol/L (135-145); Total Protein 6.6 g/dL (6.5-8.0)
[2025-05-08 21:09] LABS: Appearance Urine Clear; Glucose Urine UA Negative (Negative); PH 5.5 (5.0-9.0); Specific Gravity - Urine 1.020 (1.005-1.025); UMIC TRIGGER UACC YES
[2025-05-08 21:12] LABS: UACC Culture Trigger YES
--- NOTE | 2025-05-08 21:35 | PC.NURSE ---
put D/C order. RN retrieved pts belongings from [facility]- given to pt. Pt still with sitter until ems arrival to send her back to [facility].
[2025-05-08 22:27] VITALS: BP 00/00; PULSE 0; RESP 0; TEMP 36.7
== END 2025-05-08 22:28 | disposition home or self-care (01) ==
PROVIDERS: Emergency Provider Student in an Organized Health Care Education/Training Program
DX: S40.022A Contusion of left upper arm, initial encounter (principal); X58.XXXA Exposure to other specified factors, initial encounter; Y93.9 Activity, unspecified; Y92.9 Unspecified place or not applicable; Y99.8 Other external cause status
CPT/HCPCS: 36415; 80053; 81001; 85025; 85610; 85730; 87086; 99283; 99284